=== PATIENT | male | born 1945 | race Caucasian/White ===

== ENCOUNTER 2016-05-16 16:41 | Emergency (ER) | payer MEDICARE ==
[2016-05-16 17:17] LABS: Hematocrit 51 % (42-52); Hemoglobin 16.7 g/dl (14.0-18.0); Mean Corpuscular HGB Conc 33 g/dl (31-36); Mean Corpuscular Hemoglobin 29 pg (27-31); Mean Corpuscular Volume 88 fL (80-94); Mean Platelet Volume 10 um3 (7.4-10.4); Red Blood Count 5.75 10^6/ul (4.0-5.4); Red Cell Distribution Width 14 % (10.5-15); White Blood Count 8.5 10^3/ul (3.5-10.8)
[2016-05-16 17:29] LABS: ALT 22 U/L (7-52); Albumin 4.1 g/dL (3.2-5.2); Alkaline Phosphatase 77 U/L (34-104); BUN/Creatinine Ratio 12.7 (8-20); Blood Urea Nitrogen 16 mg/dL (6-24); C Reactive Protein 2.53 mg/L (< 5.00); CO2 Carbon Dioxide 27 mmol/L (22-32); Calcium 10.8 mg/dL (8.6-10.3); Chloride 106 mmol/L (101-111); EGFR African American 72.3 (>60); EGFR Non-African American 56.3 (>60); Globulin 2.9 g/dL (2-4); Glucose 104 mg/dL (70-100); Sodium 129 mmol/L (133-145)
--- NOTE | 2016-05-16 17:39 | RAD ---
HISTORY: Trauma, head injury COMPARISONS: None TECHNIQUE: Multiple contiguous axial CT scans were obtained of the head without intravenous contrast. FINDINGS: HEMORRHAGE/INFARCT: There is no hemorrhage or acute infarct. MASSES/SHIFT: There is no mass or shift. EXTRA-AXIAL SPACES: There are no extra-axial fluid collections. SULCI AND VENTRICLES: The sulci and ventricles are normal in size and position for the patient's stated age. CEREBRUM: There are no focal parenchymal abnormalities. BRAINSTEM: There are no focal parenchymal abnormalities. CEREBELLUM: There are no focal parenchymal abnormalities. VESSELS: The vessels are grossly normal. PARANASAL SINUSES: The paranasal sinuses are clear. ORBITS: The orbits are unremarkable. BONES AND SOFT TISSUE: No bone or soft tissue abnormalities are noted. OTHER: None IMPRESSION: NO ACUTE INTRACRANIAL PATHOLOGY.
[2016-05-16] MEDS ORDERED: NS 0.9% 1000 ML* 1,000 ML IV ONE (17:40)
[2016-05-16 17:56] LABS: TSH (Thyroid Stimulating Horm) 2.11 mcIU/mL (0.34-5.60)
[2016-05-16] MEDS ORDERED: oxyCODONE TAB* 5 MG TAB PO ONE ×2 (19:32→22:05)
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
--- NOTE | 2016-05-16 22:14 | ED ---
Anselmo Richards Matthew, scribed for Foster Doss MD on 05/16/16 at 1702 . Neurological HPI - HPI Summary HPI Summary: A 70 y/o male presents to the ED with constant bilateral lower extremity weakness since 3 weeks ago that worsened today. Per the EMS, the patient was found face down on the floor, because he states his legs are too weak to ambulate. Also 2 weeks ago that patient had sharp right sided chest pain that radiated up his right shoulder and jaw. The pain lasted for 10 minutes and was described as sharp. He has also fallen 7 times in the last 3 weeks. Associated symptoms include right hip pain and SOB. The patient denies unsteady gait, chest pain, and headache. - History of Current Complaint Chief Complaint: EDSyncope Stated Complaint: GENERAL WEAKNESS Time Seen by Provider: 05/16/16 16:50 Hx Obtained From: Patient Onset/Duration: Gradual Onset, Started weeks ago, Still Present Timing: Constant Onset Severity: Moderate Current Severity: Moderate Neurological Deficit Location: RLE, LLE Pain Intensity: 0 Pain Scale Used: 0-10 Numeric Character: Motor Weakness Aggravating: Nothing Alleviating: Nothing Associated Signs and Symptoms: Positive: Weakness - Bilateral LE, Shortness of Breath. Negative: Unsteady Gait, Headache, Chest Pain - Additional Pertinent History Primary Care Physician: [id number] - Allergy/Home Medications Allergies/Adverse Reactions: Allergies Allergy/AdvReac Type Severity Reaction Status Date / Time No Known Allergies Allergy Verified 03/24/16 13:12 Home Medications: Home Medications ALPRAZolam TAB* [Xanax TAB*] 0.5 mg PO BID 05/16/16 [History Confirmed 05/16/16] Amitriptyline TAB* [Elavil TAB*] 25 mg PO DAILY 05/16/16 [History Confirmed 11/23] Citalopram TAB* [Celexa TAB*] 40 mg PO DAILY 05/16/16 [History Confirmed ] Enalapril TAB* [Vasotec TAB*] 20 mg PO DAILY 05/16/16 [History Confirmed ] Hydrochlorothiazide TAB* [Hydrodiuril TAB*] 50 mg PO DAILY 05/16/16 [History Confirmed 05/16/16] Levothyroxine TAB* [Synthroid TAB*] 88 mcg PO DAILY 05/16/16 [History Confirmed 05/16/16] Mirtazapine TAB* [Remeron TAB*] 30 mg PO BEDTIME 05/16/16 [History Confirmed 11/23] busPIRone TAB* [Buspar TAB*] 10 mg PO TID 05/16/16 [History Confirmed 05/16/16] PMH/Surg Hx/FS Hx/Imm Hx Cardiovascular History: Reports: Hx Hypertension Respiratory History: Reports: Other Respiratory Problems/Disorders - Emphysema GI History: Reports: Hx Gall Bladder Disease - Had cholysystectomy several years ago, Other GI Disorders - Pt. reports surgical removal of large portion of his intestines. Musculoskeletal History: Reports: Hx Orthopedic Injury Sensory History: Reports: Hx Contacts or Glasses Denies: Hx Cataracts Opthamlomology History: Reports: Hx Contacts or Glasses Denies: Hx Cataracts Neurological History: Reports: Other Neuro Impairments/Disorders - Pt. reports no sensation from Rt. knee to Rt. side of abdomen. Psychiatric History: Denies: Hx Eating Disorder, Hx of Violent Episodes Against Others - Surgical History Surgery Procedure, Year, and Place: cholysystectomy several years ago, Rt. hip surgery, Rt. abdominal surgery. Hx Anesthesia Reactions: No Infectious Disease History: No Infectious Disease History: Denies: Hx Clostridium Difficile, Hx Hepatitis, Hx Human Immunodeficiency Virus (HIV), Hx of Known/Suspected MRSA, Hx Shingles, Hx Tuberculosis, Hx Known/ Suspected VRE, Hx Known/Suspected VRSA, History Other Infectious Disease, Traveled Outside the [place] in Last 30 Days - Family History Known Family History: Negative: Cardiac Disease, Hypertension, Diabetes - Social History Alcohol Use: None Substance Use Type: Reports: Prescribed Substance Use Comment - Amount & Last Used: OXYCODONE Smoking Status (MU): Heavy Every Day Tobacco Smoker Type: Cigarettes Have You Smoked in the Last Year: Yes Review of Systems Constitutional: Negative Eyes: Negative ENT: Negative Cardiovascular: Negative Negative: Chest Pain Positive: Shortness Of Breath Gastrointestinal: Negative Genitourinary: Negative Positive: Myalgia - right hip pain Skin: Negative Positive: Weakness - Bilateral LE. Negative: Headache Psychological: Normal All Other Systems Reviewed And Are Negative: Yes Physical Exam Triage Information Reviewed: Yes Vital Signs On Initial Exam: Initial Vitals Temp Pulse Resp BP Pulse Ox 97.2 F 89 16 116/74 92 05/16/16 16:49 05/16/16 16:49 05/16/16 16:49 05/16/16 16:49 05/16/16 16:49 Vital Signs Reviewed: Yes Appearance: Positive: Well-Appearing, No Pain Distress Skin: Positive: Warm, Skin Color Reflects Adequate Perfusion, Dry Head/Face: Positive: Normal Head/Face Inspection Eyes: Positive: Normal ENT: Positive: Normal ENT inspection Neck: Positive: Supple, Nontender Respiratory/Lung Sounds: Positive: Clear to Auscultation, Breath Sounds Present Cardiovascular: Positive: RRR Abdomen Description: Positive: Nontender, Soft, Other: - Abdomen baddly scarred Bowel Sounds: Positive: Present Musculoskeletal: Positive: Other - Strong femoral pulses bilaterally; Unable to feel DP pulses bilaterally ; 5 secs cap refill; No clonus; Neurological: Positive: Alert, Oriented to Person Place, Time, Other - Strong distally in the LE bilaterally, weak to proximal musculature; Normal reflexes Psychiatric: Positive: Normal, Affect/Mood Appropriate Diagnostics - Vital Signs Vital Signs Temp Pulse Resp BP Pulse Ox 05/16/16 16:49 97.2 F 89 16 116/74 92 - Laboratory Lab Results: Lab Results 05/16/16 05/16/16 05/16/16 Range/Units 16:53 16:53 16:53 WBC 8.5 (3.5-10.8) 10^3/ul RBC 5.75 H (4.0-5.4) 10^6/ul Hgb 16.7 (14.0-18.0) g/dl Hct 51 (42-52) % MCV 88 (80-94) fL MCH 29 (27-31) pg MCHC 33 (31-36) g/dl RDW 14 (10.5-15) % Plt Count 150 (150-450) 10^3/ul MPV 10 (7.4-10.4) um3 Neut % (Auto) 68.4 (38-83) % Lymph % (Auto) 18.4 L (25-47) % Doddridge % (Auto) 8.1 (1-9) % Eos % (Auto) 4.4 (0-6) % Baso % (Auto) 0.7 (0-2) % Absolute Neuts (auto) 5.8 (1.5-7.7) 10^3/ul Absolute Lymphs (auto) 1.6 (1.0-4.8) 10^3/ul Absolute Monos (auto) 0.7 (0-0.8) 10^3/ul Absolute Eos (auto) 0.4 (0-0.6) 10^3/ul Absolute Basos (auto) 0.1 (0-0.2) 10^3/ul Absolute Nucleated RBC 0.04 10^3/ul Nucleated RBC % 0.4 INR (Anticoag Therapy) 1.04 (0.89-1.11) Sodium 129 L (133-145) mmol/L Potassium TNP Chloride 106 (101-111) mmol/L Carbon Dioxide 27 (22-32) mmol/L Anion Gap TNP BUN 16 (6-24) mg/dL Creatinine 1.26 H (0.67-1.17) mg/dL Est GFR ( Amer) 72.3 (>60) Est GFR (Non-Af Amer) 56.3 (>60) BUN/Creatinine Ratio 12.7 (8-20) Glucose 104 H (70-100) mg/dL Lactic Acid (0.5-2.0) mmol/L Calcium 10.8 H (8.6-10.3) mg/dL Magnesium TNP Total Bilirubin 0.40 (0.2-1.0) mg/dL AST TNP ALT 22 (7-52) U/L Alkaline Phosphatase 77 (34-104) U/L Troponin I 0.00 (<0.04) ng/mL C-Reactive Protein 2.53 (< 5.00) mg/L Total Protein 7.0 (6.4-8.9) g/dL Albumin 4.1 (3.2-5.2) g/dL Globulin 2.9 (2-4) g/dL Albumin/Globulin Ratio 1.4 (1-3) TSH 2.11 (0.34-5.60) mcIU/mL 05/16/16 05/16/16 Range/Units 16:53 17:42 WBC (3.5-10.8) 10^3/ul RBC (4.0-5.4) 10^6/ul Hgb (14.0-18.0) g/dl Hct (42-52) % MCV (80-94) fL MCH (27-31) pg MCHC (31-36) g/dl RDW (10.5-15) % Plt Count (150-450) 10^3/ul MPV (7.4-10.4) um3 Neut % (Auto) (38-83) % Lymph % (Auto) (25-47) % Doddridge % (Auto) (1-9) % Eos % (Auto) (0-6) % Baso % (Auto) (0-2) % Absolute Neuts (auto) (1.5-7.7) 10^3/ul Absolute Lymphs (auto) (1.0-4.8) 10^3/ul Absolute Monos (auto) (0-0.8) 10^3/ul Absolute Eos (auto) (0-0.6) 10^3/ul Absolute Basos (auto) (0-0.2) 10^3/ul Absolute Nucleated RBC 10^3/ul Nucleated RBC % INR (Anticoag Therapy) (0.89-1.11) Sodium (133-145) mmol/L Potassium 3.7 Chloride (101-111) mmol/L Carbon Dioxide (22-32) mmol/L Anion Gap BUN (6-24) mg/dL Creatinine (0.67-1.17) mg/dL Est GFR ( Amer) (>60) Est GFR (Non-Af Amer) (>60) BUN/Creatinine Ratio (8-20) Glucose (70-100) mg/dL Lactic Acid 3.2 H* (0.5-2.0) mmol/L Calcium (8.6-10.3) mg/dL Magnesium 2.0 Total Bilirubin (0.2-1.0) mg/dL AST 21 ALT (7-52) U/L Alkaline Phosphatase (34-104) U/L Troponin I (<0.04) ng/mL C-Reactive Protein (< 5.00) mg/L Total Protein (6.4-8.9) g/dL Albumin (3.2-5.2) g/dL Globulin (2-4) g/dL Albumin/Globulin Ratio (1-3) TSH (0.34-5.60) mcIU/mL Result Diagrams: 05/16/16 16:53 05/16/16 17:42 Lab Statement: Any lab studies that have been ordered have been reviewed, and results considered in the medical decision making process. - CT Brain CT CT Interpretation: No Acute Changes - IMPRESSION: NO ACUTE INTRACRANIAL PATHOLOGY. CT Interpretation Completed By: Radiologist Pelvis CT CT Interpretation: Positive (See Comments) - IMPRESSION: 1. NO ACUTE OSSEOUS INJURY. 2. REMOTE POSTTRAUMATIC DEFORMITY TO THE RIGHT ILIAC WING. 3. 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 4. ATHEROSCLEROSIS. 5. ENLARGED PROSTATE CT Interpretation Completed By: Radiologist - EKG 18:54 Cardiac Rate: NL - 89 bpm EKG Rhythm: Sinus Rhythm EKG Interpretation: Old Inferior Infarct EKG Comparison: No Significant Change - 01/08/15 Course/Dx - Course Course Of Treatment: Mr. Reynaga presented with a C/O weakness and legs giving out. He has fallen several times in the past couple of weeks. He seemed to have some proximal weakness in his lower extremities and was seen by Dr. Lomas of Neurology. His CT showed wome spondylolisthesis at L4- L5. He was D/ C's with some pain medication for F/U. - Diagnoses Provider Diagnoses: Weakness - Physician Notifications Discussed Care of Patient With: Dr. Lomas (Neruology) at 19:19 -- Notified of patient's history and will come to evaluate the patient. Discharge - Discharge Plan Condition: Stable Disposition: HOME Patient Education Materials: Weakness (ED) Referrals: [facility] [Outside] - 2 Days Additional Instructions: Please follow-up with your primary care physician in two days. The documentation as recorded by the Anselmo camarena Matthew accurately reflects the service I personally performed and the decisions made by me, Foster Doss MD.
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
[2016-05-16 22:42] VITALS: BP 101/67
== END 2016-05-16 22:42 | disposition home or self-care (01) ==
LOC: ED 16:41
DX: R53.1 Weakness (principal); F17.210 Nicotine dependence, cigarettes, uncomplicated; I10 Essential (primary) hypertension
CPT/HCPCS: 36415; 70450; 72192; 80053; 83605; 83735; 84443; 84484; 85025; 85610; 86140; 93005; 96360; 99283; A9270-GY

== ENCOUNTER 2016-05-17 00:10 | Inpatient (IN) | payer MEDICARE ==
--- NOTE | 2016-05-17 00:32 | ED ---
De Richards Billy, scribed for Jim Arevalo MD on 05/17/16 at 0028 . Complex/Multi-Sys Presentation - HPI Summary HPI Summary: Patient is a 70 year-old male BIBA to [facility] for generalized weakness and repeated falls tonight. He was only recently discharged from [facility] within the last 2 hours. He arrived home and fell from his chair, and proceeded to fall multiple times while attempting to get into his chair in the living room. Family decided to have EMS bring patient back to [facility] for further workup and management. He denies any CP or headache at this time. Prior visit's report reviewed, he has had bilateral lower extremity weakness for several weeks. - History Of Current Complaint Chief Complaint: EDGeneral Time Seen by Provider: 05/17/16 00:11 Hx Obtained From: Patient, Family/Repairer Veneer Sheet, EMS Onset/Duration: Gradual Onset, Lasting Weeks, Still Present Timing: Constant Severity Currently: Moderate Severity Initially: Moderate Aggravating Factor(s): none Alleviating Factor(s): none Associated Signs And Symptoms: Negative: Headache, Chest Pain - Allergies/Home Medications Allergies/Adverse Reactions: Allergies Allergy/AdvReac Type Severity Reaction Status Date / Time No Known Allergies Allergy Verified 03/24/16 13:12 Home Medications: Home Medications oxyCODONE TAB* [Roxycodone TAB 5 mg*] 5 mg PO Q6H PRN 05/17/16 [History Confirmed 05/17/16] PMH/Surg Hx/FS Hx/Imm Hx Cardiovascular History: Reports: Hx Hypertension Respiratory History: Reports: Other Respiratory Problems/Disorders - Emphysema GI History: Reports: Hx Gall Bladder Disease - Had cholysystectomy several years ago, Other GI Disorders - Pt. reports surgical removal of large portion of his intestines. Musculoskeletal History: Reports: Hx Orthopedic Injury Sensory History: Reports: Hx Contacts or Glasses Denies: Hx Cataracts Opthamlomology History: Reports: Hx Contacts or Glasses Denies: Hx Cataracts Neurological History: Reports: Other Neuro Impairments/Disorders - Pt. reports no sensation from Rt. knee to Rt. side of abdomen. Psychiatric History: Denies: Hx Eating Disorder, Hx of Violent Episodes Against Others - Surgical History Surgery Procedure, Year, and Place: cholysystectomy several years ago, Rt. hip surgery, Rt. abdominal surgery. Hx Anesthesia Reactions: No Infectious Disease History: No Infectious Disease History: Denies: Hx Clostridium Difficile, Hx Hepatitis, Hx Human Immunodeficiency Virus (HIV), Hx of Known/Suspected MRSA, Hx Shingles, Hx Tuberculosis, Hx Known/ Suspected VRE, Hx Known/Suspected VRSA, History Other Infectious Disease, Traveled Outside the in Last 30 Days - Family History Known Family History: Negative: Cardiac Disease, Hypertension, Diabetes - Social History Alcohol Use: None Substance Use Type: Reports: Prescribed Substance Use Comment - Amount & Last Used: OXYCODONE Smoking Status (MU): Heavy Every Day Tobacco Smoker Type: Cigarettes Have You Smoked in the Last Year: Yes Review of Systems Negative: Fever Negative: Chest Pain Positive: Weakness. Negative: Headache All Other Systems Reviewed And Are Negative: Yes Physical Exam Triage Information Reviewed: Yes Vital Signs On Initial Exam: Initial Vitals Temp Pulse Resp BP Pulse Ox 98.5 F 72 14 132/70 95 05/17/16 00:15 05/17/16 00:15 05/17/16 00:15 05/17/16 00:15 05/17/16 00:15 Vital Signs Reviewed: Yes Completion Of Physical Exam Limited Due To: Altered Mental Status Appearance: Positive: No Pain Distress, Well-Nourished Skin: Positive: Warm Eyes: Positive: CALI ENT: Positive: Hearing grossly normal Neck: Positive: Supple Respiratory/Lung Sounds: Positive: Breath Sounds Present Cardiovascular: Positive: Normal Abdomen Description: Positive: Nontender, Soft Bowel Sounds: Positive: Present Musculoskeletal: Positive: Strength/ROM Intact Neurological: Positive: Sensory/Motor Intact Psychiatric: Positive: Anxious Diagnostics - Vital Signs Vital Signs Temp Pulse Resp BP Pulse Ox 05/17/16 00:15 98.5 F 72 14 132/70 95 - Laboratory Lab Statement: Any lab studies that have been ordered have been reviewed, and results considered in the medical decision making process. Complex Multi-Symp Course/Dx - Diagnoses Provider Diagnoses: Weakness - Physician Notifications Discussed Care Of Patient With: Dr. Bach (hospitalist) @ 0030: accepts admission. Instructed by Provider To: Admit As Observation Discharge - Discharge Plan Condition: Stable Disposition: ADMITTED TO [facility] documentation as recorded by the De camarena Billy accurately reflects the service I personally performed and the decisions made by me, Jim Arevalo MD.
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
[2016-05-17] MEDS ORDERED: Melatonin (NF) 3 MG TAB PO PRN (01:30)
[2016-05-17] MEDS ORDERED: Ondansetron INJ* 2 MG/ML VIAL IV PRN (01:30)
[2016-05-17] MEDS ORDERED: NS 0.9% 1000 ML* 1,000 ML IV SCH (01:30)
[2016-05-17] MEDS ORDERED: Albuterol 2.5 MG/3 ML NEB.SOL* (0.083%) INH PRN (01:30)
[2016-05-17 05:45] LABS: Hematocrit 46 % (42-52); Hemoglobin 15.4 g/dl (14.0-18.0); Mean Corpuscular HGB Conc 33 g/dl (31-36); Mean Corpuscular Hemoglobin 29 pg (27-31); Mean Corpuscular Volume 88 fL (80-94); Mean Platelet Volume 10 um3 (7.4-10.4); Red Blood Count 5.22 10^6/ul (4.0-5.4); Red Cell Distribution Width 14 % (10.5-15); White Blood Count 7.2 10^3/ul (3.5-10.8)
[2016-05-17] MEDS: Levothyroxine TAB* 88 MCG TAB PO SCH (05:48)
[2016-05-17] MEDS: Omeprazole CAP* 20 MG PO SCH (05:48)
[2016-05-17 06:02] LABS: BUN/Creatinine Ratio 12.5 (8-20); Calcium 9.6 mg/dL (8.6-10.3); EGFR African American 76.5 (>60); EGFR Non-African American 59.5 (>60); Potassium 3.2 mmol/L (3.5-5.0)
[2016-05-17] MEDS: traMADol TAB* 50 MG PO PRN ×5 (07:07→23:19)
[2016-05-17] MEDS: Enalapril TAB* 20 MG PO SCH (08:16)
[2016-05-17] MEDS: Docusate CAP* 100 MG PO SCH ×2 (08:16→19:51)
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
[2016-05-17] MEDS: Acetaminophen TAB* 325 MG PO PRN ×2 (10:17→16:26)
[2016-05-17] MEDS: oxyCODONE TAB* 5 MG TAB PO PRN ×2 (10:18→14:16)
[2016-05-17] MEDS: NS 0.9% 1000 ML* 1,000 ML IV SCH ×2 (12:47→21:26)
[2016-05-17] MEDS: oxyCODONE TAB* 5 MG TAB PO SCH (19:51)
[2016-05-17] MEDS ORDERED: Mirtazapine TAB* 15 MG PO SCH (21:00)
[2016-05-18] MEDS: traMADol TAB* 50 MG PO PRN ×2 (03:32→07:28)
[2016-05-18 04:34] LABS: Urine Bilirubin Negative (Negative); Urine Glucose Negative (Negative); Urine Nitrite Negative (Negative)
[2016-05-18] MEDS: Heparin VIAL(*) 5000 UNITS/ML VIAL (FIVE THOUSAND) SUBCUT SCH ×2 (05:01→14:05)
[2016-05-18] MEDS: Levothyroxine TAB* 88 MCG TAB PO SCH (05:01)
[2016-05-18] MEDS: Omeprazole CAP* 20 MG PO SCH (05:01)
[2016-05-18 05:50] LABS: Hematocrit 43 % (42-52); Mean Corpuscular HGB Conc 33 g/dl (31-36); Mean Corpuscular Hemoglobin 29 pg (27-31); Mean Corpuscular Volume 89 fL (80-94); Mean Platelet Volume 9 um3 (7.4-10.4); Red Blood Count 4.83 10^6/ul (4.0-5.4); Red Cell Distribution Width 14 % (10.5-15); White Blood Count 4.9 10^3/ul (3.5-10.8)
[2016-05-18 06:09] LABS: BUN/Creatinine Ratio 13.6 (8-20); EGFR African American 91.3 (>60); Potassium 3.8 mmol/L (3.5-5.0)
[2016-05-18] MEDS: NS 0.9% 1000 ML* 1,000 ML IV SCH (07:42)
[2016-05-18] MEDS: Docusate CAP* 100 MG PO SCH (08:44)
[2016-05-18] MEDS: oxyCODONE TAB* 5 MG TAB PO SCH ×2 (08:44→14:06)
[2016-05-18] MEDS: Enalapril TAB* 20 MG PO SCH (08:44)
[2016-05-18] MEDS ORDERED: oxyCODONE TAB* 5 MG TAB PO ONE (11:13)
[2016-05-18] MEDS ORDERED: Lidocaine PATCH 5%* 1 PATCH TRANSDERM SCH (12:00)
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
[2016-05-18 16:09] VITALS: BP 160/92
[2016-05-18] MEDS ORDERED: Lidocaine Patch REMOVE* 1 NOTE MISC SCH (21:00)
--- NOTE | 2016-05-19 15:19 | DS ---
DISCHARGE SUMMARY: DATE OF ADMISSION: 05/17/16 DATE OF DISCHARGE: 05/18/16 PRIMARY CARE PROVIDER: ISAIAH Marks at [facility]. DISCHARGING PROVIDER: ISAIAH Rain SUPERVISING PHYSICIAN: Jyothi Condon DO * (dictated by ISAIAH Rain) PRIMARY DISCHARGE DIAGNOSES: 1. Toxic encephalopathy secondary to unintentional overdose of benzodiazepine and opiates. 2. Lower extremity weakness which improved after encephalopathy cleared. 3. Acute kidney injury - resolved. 4. Substance abuse. SECONDARY DISCHARGE DIAGNOSES: 1. Hypothyroidism - TSH 2.11. 2. Depression and anxiety. 3. Chronic right hip pain. DISCHARGE MEDICATIONS: 1. Amitriptyline 25 mg p.o. daily. 2. Citalopram 40 mg p.o. daily. 3. Enalapril 20 mg p.o. daily. 4. Hydrochlorothiazide 50 mg p.o. daily. 5. Levothyroxine 88 mcg p.o. daily. 6. Mirtazapine 30 mg p.o. at bedtime. 7. BuSpar 10 mg p.o. t.i.d. MEDICATION CHANGES: 1. Discontinue oxycodone. 2. Discontinue alprazolam. HOSPITAL IMAGIN. CT of the brain shows no acute process. 2. CT of the pelvis shows no acute bony process but evidence of old deformity of the right iliac wing as well as spondylosis with anterior spondylolisthesis at L5 and S1. HOSPITAL COURSE: This is a pleasant 70-year-old gentleman with history of hypertension, hypothyroidism, depression, and anxiety, and chronic right hip pain, who presented with altered mental status and complaints of weakness. The patient stated that over the last couple of weeks, he has had profound weakness primarily in his lower extremities that has resulted in numerous falls at home. The patient was also noted to be confused, was taking multiple inappropriate doses of his alprazolam and oxycodone. It seems that he had been become confused and was in continued pain and each time his level of alertness would increase, he would take an additional dose of oxycodone which led to his encephalopathic state at the time of admission. All sedating medications were initially held at the time of admission and his oxycodone was later reintroduced at his reported prescribed dose of 10 mg three times daily which he stated was not adequately controlling his pain at that time. 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 Due to the chronicity of his injury and obvious difficulty with pain control, requested a palliative care consult to aide in symptom management. Dr. Cindi Golden was incredibly helpful in interviewing the patient. He felt that his 10 mg of oxycodone 3 times daily was adequately controlling his pain despite stating something quite different in the morning. She called his primary care provider who was identified as ISAIAH Marks at [facility] to discuss his pain management regimen as she felt that he would benefit more from long acting opiates. Brandon Campbell stated that the patient has a history of substance abuse and had not been prescribing oxycodone to him. I- STOP was pulled which showed that he had received oxycodone prescription from Dr. Durga Slade at [facility]. Contacted Dr. Slade in regards to the patient. He stated that he had initiated primary care services with him 3 months prior and he had initiated the oxycodone and referred to orthopedics to see if there are any surgical interventions that he may benefit from, but he became concerned about his potential for abuse when he had avoided a couple of his appointments with orthopedics. He requested a urine toxicology screen at his last appointment which was negative for oxycodone metabolites, but positive for hydromorphone and hydrocodone metabolites. No other illicit substances were noted. The patient had not returned to the office and said toxicology screen had been completed and Dr. Slade did not have a chance to address directly with him. Confronted patient with the information as potential substance abuse, and patient stated that he did request a pain pill from one of his neighbors, but stated that he did not have any malicious intent and had not been diverting any of his medications. He stated that he was in a significant amount of pain and deeply wanted help with pain management. With this information, contacted Dr. Slade again to see if he would be willing to prescribe a long-acting opiate potentially considering methadone to reduce addiction potential. He stated in the time since our last conversation, he had another patient in his office who had volunteered that she was concerned about her neighbor who had been requesting pain medications from all of his neighbors and had been witnessed crushing and snorting these medications. It appears that addresses of the patient in the office and Mr. Reynaga confirms that they are neighbors and this patient also mentions the name [employer]. The patient was again confronted with this information that there was significant concern for substance abuse. The patient denied that he would participate in any crushing or snorting of medication, but does not deny that he had been requesting pain medications from his neighbors. Suggested that the patient will benefit from substance abuse counselling which he was wary to consider. I explained to him that he would not be discharged from the hospital with any additional opiates. Dr. Slade would prefer the primary care be continued by Brandon Campbell, it sounds like he has been following him for quite some time and is familiar with his history. The patient stated that he felt well enough to return home and would like to spend some time at home sorting out appropriate course of action. Gave him contact information for [facility] and strongly suggested that he consider substance abuse counselling. DISCHARGE AND DISPOSITION: The patient is being discharged home where he lives alone. No opiates were prescribed at the time of discharge and the patient was encouraged not to take any additional benzodiazepines or opiates. Strongly suggested that substance abuse counselling. The patient was given contact information for [facility]. Contacted the patient's primary care Brandon Campbell at the time of discharge and left a message to discuss his followup plan. Could consider trailing an alternate bridge painter helper, Dr. Cueto may be of some help in this situation. If patient is willing to engage in regular urine toxicology screen as he does seem to have some true pathology. Beyond this he would certainly benefit from substance abuse counselling which patient seemed to acknowledge by the time of discharge, but his mental status has cleared, he is alert and appropriately oriented. He has capacity to leave the hospital. CC: ISAIAH Marks, [facility]* [id number]/CPS #: [id number] OSWALD
== END 2016-05-18 16:15 | disposition home or self-care (01) | DRG 917 ==
LOC: ED 00:10 → MED 01:29 → OBSVTOIN 10:14
PROVIDERS: ADMIT Hospitalist; ATTEND Hospitalist
DX: T42.4X1A Poisoning by benzodiazepines, accidental (unintentional), initial encounter (principal); G92 Toxic encephalopathy; N17.9 Acute kidney failure, unspecified; T50.7X1A Poisoning by analeptics and opioid receptor antagonists, accidental (unintentional), initial encounter; F19.10 Other psychoactive substance abuse, uncomplicated; E03.9 Hypothyroidism, unspecified; F32.9 Major depressive disorder, single episode, unspecified; M25.551 Pain in right hip; F41.9 Anxiety disorder, unspecified; F17.210 Nicotine dependence, cigarettes, uncomplicated; R53.1 Weakness; Z79.891 Long term (current) use of opiate analgesic; Z79.899 Other long term (current) drug therapy
CPT/HCPCS: 36415; 70450; 72192; 80048; 80053; 81003; 83605; 83735; 84443; 84484; 85025; 85027; 85610; 86140; 93005; 94640; 94760; 96360; 99283; 99406; A9270-GY; J1644

== ENCOUNTER 2016-05-28 08:24 | Inpatient (IN) | payer MEDICARE ==
[2016-05-28] MEDS ORDERED: NS 0.9% 1000 ML* 3,000 ML IV ONE (09:15)
--- NOTE | 2016-05-28 09:59 | RAD ---
INDICATION: Cough. Wheezing COMPARISON: January 06, 2015 TECHNIQUE: PA and lateral dual-energy views were obtained. FINDINGS: Bones/Soft Tissues: There are no acute bony findings. Cardiomediastinal: The cardiomediastinal silhouette is normal. Lungs: There are no infiltrates. There is hyperinflation Pleura: There are no pleural effusions. Other: None IMPRESSION: HYPERINFLATION. NO ACTIVE DISEASE.
--- NOTE | 2016-05-28 10:01 | RAD ---
INDICATION: Dizziness. Fall. COMPARISON: May 16, 2016 TECHNIQUE: Noncontrast axial source images were acquired from the skull base to the vertex. FINDINGS: Ventricles/sulci: The ventricles and cisterns are normal in size and configuration for age. Brain parenchyma: There is mild periventricular and subcortical white matter change compatible with chronic ischemia. Intracranial hemorrhage:None. Extra-axial spaces: There are no abnormal extra axial fluid collections or evidence of extra-axial mass. Calvarium: There is no calvarial fracture or other calvarial abnormality. Scalp: There is no evidence of scalp or extracalvarial soft tissue abnormality. Paranasal sinuses/mastoid: The paranasal sinuses and mastoid air cells are clear. Other: None. IMPRESSION: NO ACUTE INTRACRANIAL FINDINGS
[2016-05-28 10:06] LABS: Hematocrit 55 % (42-52); Hemoglobin 18.1 g/dl (14.0-18.0); Mean Corpuscular HGB Conc 33 g/dl (31-36); Mean Corpuscular Hemoglobin 29 pg (27-31); Mean Corpuscular Volume 88 fL (80-94); Mean Platelet Volume 10 um3 (7.4-10.4); Red Blood Count 6.21 10^6/ul (4.0-5.4); Red Cell Distribution Width 14 % (10.5-15); White Blood Count 12.2 10^3/ul (3.5-10.8)
[2016-05-28 10:07] LABS: Add Diff/Slide Review? Slide Review Added; Comments Flag Yes
[2016-05-28 10:22] LABS: ALT 26 U/L (7-52); Albumin 4.7 g/dL (3.2-5.2); Alkaline Phosphatase 76 U/L (34-104); BUN/Creatinine Ratio 11.8 (8-20); Blood Urea Nitrogen 15 mg/dL (6-24); CO2 Carbon Dioxide 24 mmol/L (22-32); Calcium 11.2 mg/dL (8.6-10.3); Chloride 99 mmol/L (101-111); Creatine Kinase 127 U/L (10-223); EGFR African American 71.7 (>60); EGFR Non-African American 55.7 (>60); Globulin 3.7 g/dL (2-4); Glucose 120 mg/dL (70-100); Sodium 131 mmol/L (133-145); Total Protein 8.4 g/dL (6.4-8.9)
[2016-05-28 10:38] LABS: Magnesium 2.4 mg/dL (1.9-2.7)
[2016-05-28 10:39] LABS: Acetaminophen < 15 mcg/mL; Alcohol < 10 mg/dL (<10); Salicylate < 2.50 mg/dL (<30)
[2016-05-28 10:47] LABS: TSH (Thyroid Stimulating Horm) 2.22 mcIU/mL (0.34-5.60)
[2016-05-28 11:40] LABS: Urine Bacteria Absent (Absent); Urine Bilirubin Negative (Negative); Urine Glucose Negative (Negative); Urine Nitrite Negative (Negative)
[2016-05-28 11:49] LABS: Benzodiazepine Urine Screen None Detected (None Detect)
[2016-05-28] MEDS ORDERED: Mouth Piece, Nicotine* 1 EACH CARTRIDGE ONE (13:04)
[2016-05-28] MEDS ORDERED: Nicotine Inhaler* 10 MG AMP ONE (13:05)
[2016-05-28] MEDS ORDERED: Nicotine Inhaler* 10 MG AMP INH ONE (13:07)
[2016-05-28] MEDS ORDERED: oxyCODONE TAB* 5 MG TAB PO ONE (14:06)
--- NOTE | 2016-05-28 14:18 | ED ---
Anselmo Richards Matthew, scribed for Tyrone Castellnaos MD on 05/28/16 at 1026 . Complex/Multi-Sys Presentation - HPI Summary HPI Summary: A 70 y/o male presents to the ED c/o dizziness and general weakness since 3 days ago. Associated symptoms include ataxis - since 3 days ago, blurry vision, decreased appetite - since 4 days ago, tinnitus, and diaphoresis. The patient denies headache, slurred speech, blind spot in his vision, difficulty swallowing , weakness in the UE, vertigo, coughing, urinary retention, trauma, and urinary incontinence. The patient states that he snorted 6 300mg wellbutrin tablets 3 days ago. Last night, per the patient's daughter, his right eye was dilated and his left eye was bulging. The patient states that he's seeing objects. He's also having difficulty falling a sleep. The patient lost his 6 years ago, and has been living by himself. He states that he dislikes living alone and believes its making him depressed. However, he's not receiving counseling currently. The patient was admitted 2 weeks ago for stroke like symptoms. - History Of Current Complaint Chief Complaint: EDNeurologicalDeficit Time Seen by Provider: 05/28/16 08:52 Hx Obtained From: Patient Onset/Duration: Lasting Days, Still Present Timing: Constant Severity Currently: Moderate Severity Initially: Moderate Location: Negative Associated Signs And Symptoms: Positive: Dizziness, Weakness, Diaphoresis, Other - Blurry Vision, tinnitus, ataxia - Allergies/Home Medications Allergies/Adverse Reactions: Allergies Allergy/AdvReac Type Severity Reaction Status Date / Time No Known Allergies Allergy Verified 05/28/16 08:42 PMH/Surg Hx/FS Hx/Imm Hx Cardiovascular History: Reports: Hx Hypertension Respiratory History: Reports: Hx Chronic Obstructive Pulmonary Disease (COPD) - Emphysema, Other Respiratory Problems/Disorders - Emphysema GI History: Reports: Hx Gall Bladder Disease - Had cholysystectomy several years ago, Other GI Disorders - Pt reports surgical removal of large portion of his intestines Musculoskeletal History: Reports: Hx Orthopedic Injury Sensory History: Reports: Hx Contacts or Glasses Denies: Hx Cataracts Opthamlomology History: Reports: Hx Contacts or Glasses Denies: Hx Cataracts Neurological History: Reports: Other Neuro Impairments/Disorders - numbness from right knee up to hip Psychiatric History: Reports: Hx Anxiety, Hx Depression, Hx Substance Abuse - oxycodone addiction Denies: Hx Eating Disorder, Hx of Violent Episodes Against Others - Surgical History Surgery Procedure, Year, and Place: cholysystectomy several years ago, Rt. hip surgery, Rt. abdominal surgery. Hx Anesthesia Reactions: No Infectious Disease History: Denies: Hx Clostridium Difficile, Hx Hepatitis, Hx Human Immunodeficiency Virus (HIV), Hx of Known/Suspected MRSA, Hx Shingles, Hx Tuberculosis, Hx Known/ Suspected VRE, Hx Known/Suspected VRSA, History Other Infectious Disease, Traveled Outside the [place] in Last 30 Days - Family History Known Family History: Negative: Cardiac Disease, Hypertension, Diabetes - Social History Alcohol Use: None Substance Use Type: Reports: Prescribed Substance Use Comment - Amount & Last Used: OXYCODONE Smoking Status (MU): Heavy Every Day Tobacco Smoker Type: Cigarettes Have You Smoked in the Last Year: Yes Review of Systems Constitutional: Other - decreased appetite Positive: Skin Diaphoresis Positive: Blurred Vision ENT: Other - Tinnitus Cardiovascular: Negative Respiratory: Negative Negative: Shortness Of Breath, Cough Gastrointestinal: Negative Genitourinary: Negative Negative: incontinence Musculoskeletal: Other - Ataxia Skin: Negative Neurological: Negative Negative: Headache Psychological: Normal All Other Systems Reviewed And Are Negative: Yes Physical Exam - Summary Physical Exam Summary: The patient is well-nourished in no acute distress and in no acute pain. The skin is warm and dry and skin color reflects adequate perfusion. HEENT: The head is normocephalic and atraumatic. The right pupil is larger than the left, but both are reactive. The conjunctivae are clear and without drainage. Nares are patent and without drainage. Mouth reveals moist mucous membranes and the throat is without erythema and exudate. The external ears are intact. The ear canals are patent and without drainage. The tympanic membranes are intact. The left angle of the mandible has a small well circumscribed lymph node Neck is supple with full range of motion and non-tender. There are no carotid bruits. There is no neck vein distension. Respiratory: Chest is non-tender. Diffuse wheezing and rhonchi. Cardiovascular: Heart is regular rate and rhythm. There is no murmur or rub auscultated. There is no peripheral edema and pulses are symmetrical and equal. Abdomen: The abdomen is soft and non-tender. There are normal bowel sounds heard in all four quadrants and there is no organomegaly palpated. Musculoskeletal: There is no back pain noted. Extremities are non-tender with full range of motion. There is good capillary refill. There is no peripheral edema or calf tenderness elicited. Neurological: Patient is alert and oriented to person, place and time. The patient has symmetrical motor strength in all four extremities. Cranial nerves II-XII are grossly intact. Deep tendon reflexes are symmetrical and equal in all four extremities. Normal finger to nose. No pronator drift of the UE, No leg leg pronator drig. Unable to assess right leg pronator drift, because of previous injury. Psychiatric: The patient appears depressed. Triage Information Reviewed: Yes Vital Signs On Initial Exam: Initial Vitals Temp Pulse Resp BP Pulse Ox 97.1 F 91 20 146/105 95 05/28/16 08:38 05/28/16 08:38 05/28/16 08:38 05/28/16 08:38 05/28/16 08:38 Vital Signs Reviewed: Yes Diagnostics - Vital Signs Vital Signs Temp Pulse Resp BP Pulse Ox 05/28/16 08:38 97.1 F 91 20 146/105 95 - Laboratory Lab Results: Lab Results 05/28/16 05/28/16 05/28/16 Range/Units 09:50 09:50 09:50 WBC 12.2 H (3.5-10.8) 10^3/ul RBC 6.21 H (4.0-5.4) 10^6/ul Hgb 18.1 H (14.0-18.0) g/dl Hct 55 H (42-52) % MCV 88 (80-94) fL MCH 29 (27-31) pg MCHC 33 (31-36) g/dl RDW 14 (10.5-15) % Plt Count 211 (150-450) 10^3/ul MPV 10 (7.4-10.4) um3 Neut % (Auto) 74.4 (38-83) % Lymph % (Auto) 14.7 L (25-47) % Glynn % (Auto) 8.4 (1-9) % Eos % (Auto) 1.9 (0-6) % Baso % (Auto) 0.6 (0-2) % Absolute Neuts (auto) 9.1 H (1.5-7.7) 10^3/ul Absolute Lymphs (auto) 1.8 (1.0-4.8) 10^3/ul Absolute Monos (auto) 1.0 H (0-0.8) 10^3/ul Absolute Eos (auto) 0.2 (0-0.6) 10^3/ul Absolute Basos (auto) 0.1 (0-0.2) 10^3/ul Absolute Nucleated RBC 0.01 10^3/ul Nucleated RBC % 0.1 INR (Anticoag Therapy) (0.89-1.11) Sodium 131 L (133-145) mmol/L Potassium TNP Chloride 99 L (101-111) mmol/L Carbon Dioxide 24 (22-32) mmol/L Anion Gap TNP BUN 15 (6-24) mg/dL Creatinine 1.27 H (0.67-1.17) mg/dL Est GFR ( Amer) 71.7 (>60) Est GFR (Non-Af Amer) 55.7 (>60) BUN/Creatinine Ratio 11.8 (8-20) Glucose 120 H (70-100) mg/dL Lactic Acid 1.2 (0.5-2.0) mmol/L Calcium 11.2 H (8.6-10.3) mg/dL Magnesium 2.4 (1.9-2.7) mg/dL Total Bilirubin 0.70 (0.2-1.0) mg/dL AST TNP ALT 26 (7-52) U/L Alkaline Phosphatase 76 (34-104) U/L Total Creatine Kinase 127 (10-223) U/L Troponin I 0.00 (<0.04) ng/mL C-Reactive Protein 1.50 (< 5.00) mg/L B-Natriuretic Peptide ( - 100) pg/mL Total Protein 8.4 (6.4-8.9) g/dL Albumin 4.7 (3.2-5.2) g/dL Globulin 3.7 (2-4) g/dL Albumin/Globulin Ratio 1.3 (1-3) TSH 2.22 (0.34-5.60) mcIU/mL Urine Color Urine Appearance Urine pH (5-9) Ur Specific [place] (1.010-1.030) Urine Protein (Negative) Urine Ketones (Negative) Urine Blood (Negative) Urine Nitrate (Negative) Urine Bilirubin (Negative) Urine Urobilinogen (Negative) Ur Leukocyte Esterase (Negative) Urine WBC (Auto) (Absent) Urine RBC (Auto) (Absent) Amorphous Crystals (Absent) Urine Bacteria (Absent) Urine Glucose (Negative) Salicylates < 2.50 (<30) mg/dL Urine Opiates Screen (None Detect) Acetaminophen < 15 mcg/mL Ur Barbiturates Screen (None Detect) Ur Phencyclidine Scrn (None Detect) Ur Amphetamines Screen (None Detect) U Benzodiazepines Scrn (None Detect) Urine Cocaine Screen (None Detect) U Cannabinoids Screen (None Detect) Serum Alcohol < 10 (<10) mg/dL 05/28/16 05/28/16 05/28/16 Range/Units 09:50 09:50 11:05 WBC (3.5-10.8) 10^3/ul RBC (4.0-5.4) 10^6/ul Hgb (14.0-18.0) g/dl Hct (42-52) % MCV (80-94) fL MCH (27-31) pg MCHC (31-36) g/dl RDW (10.5-15) % Plt Count (150-450) 10^3/ul MPV (7.4-10.4) um3 Neut % (Auto) (38-83) % Lymph % (Auto) (25-47) % Glynn % (Auto) (1-9) % Eos % (Auto) (0-6) % Baso % (Auto) (0-2) % Absolute Neuts (auto) (1.5-7.7) 10^3/ul Absolute Lymphs (auto) (1.0-4.8) 10^3/ul Absolute Monos (auto) (0-0.8) 10^3/ul Absolute Eos (auto) (0-0.6) 10^3/ul Absolute Basos (auto) (0-0.2) 10^3/ul Absolute Nucleated RBC 10^3/ul Nucleated RBC % INR (Anticoag Therapy) 1.14 H (0.89-1.11) Sodium (133-145) mmol/L Potassium Chloride (101-111) mmol/L Carbon Dioxide (22-32) mmol/L Anion Gap BUN (6-24) mg/dL Creatinine (0.67-1.17) mg/dL Est GFR ( Amer) (>60) Est GFR (Non-Af Amer) (>60) BUN/Creatinine Ratio (8-20) Glucose (70-100) mg/dL Lactic Acid (0.5-2.0) mmol/L Calcium (8.6-10.3) mg/dL Magnesium (1.9-2.7) mg/dL Total Bilirubin (0.2-1.0) mg/dL AST ALT (7-52) U/L Alkaline Phosphatase (34-104) U/L Total Creatine Kinase (10-223) U/L Troponin I (<0.04) ng/mL C-Reactive Protein (< 5.00) mg/L B-Natriuretic Peptide 13 ( - 100) pg/mL Total Protein (6.4-8.9) g/dL Albumin (3.2-5.2) g/dL Globulin (2-4) g/dL Albumin/Globulin Ratio (1-3) TSH (0.34-5.60) mcIU/mL Urine Color Yellow Urine Appearance Cloudy Urine pH 7.0 (5-9) Ur Specific [place] 1.015 (1.010-1.030) Urine Protein Negative (Negative) Urine Ketones Negative (Negative) Urine Blood Negative (Negative) Urine Nitrate Negative (Negative) Urine Bilirubin Negative (Negative) Urine Urobilinogen Negative (Negative) Ur Leukocyte Esterase Trace H (Negative) Urine WBC (Auto) 1+(6-10/hpf) H (Absent) Urine RBC (Auto) Absent (Absent) Amorphous Crystals Present H (Absent) Urine Bacteria Absent (Absent) Urine Glucose Negative (Negative) Salicylates (<30) mg/dL Urine Opiates Screen (None Detect) Acetaminophen mcg/mL Ur Barbiturates Screen (None Detect) Ur Phencyclidine Scrn (None Detect) Ur Amphetamines Screen (None Detect) U Benzodiazepines Scrn (None Detect) Urine Cocaine Screen (None Detect) U Cannabinoids Screen (None Detect) Serum Alcohol (<10) mg/dL 05/28/16 05/28/16 Range/Units 11:05 11:05 WBC (3.5-10.8) 10^3/ul RBC (4.0-5.4) 10^6/ul Hgb (14.0-18.0) g/dl Hct (42-52) % MCV (80-94) fL MCH (27-31) pg MCHC (31-36) g/dl RDW (10.5-15) % Plt Count (150-450) 10^3/ul MPV (7.4-10.4) um3 Neut % (Auto) (38-83) % Lymph % (Auto) (25-47) % Glynn % (Auto) (1-9) % Eos % (Auto) (0-6) % Baso % (Auto) (0-2) % Absolute Neuts (auto) (1.5-7.7) 10^3/ul Absolute Lymphs (auto) (1.0-4.8) 10^3/ul Absolute Monos (auto) (0-0.8) 10^3/ul Absolute Eos (auto) (0-0.6) 10^3/ul Absolute Basos (auto) (0-0.2) 10^3/ul Absolute Nucleated RBC 10^3/ul Nucleated RBC % INR (Anticoag Therapy) (0.89-1.11) Sodium (133-145) mmol/L Potassium 3.8 Chloride (101-111) mmol/L Carbon Dioxide (22-32) mmol/L Anion Gap BUN (6-24) mg/dL Creatinine (0.67-1.17) mg/dL Est GFR ( Amer) (>60) Est GFR (Non-Af Amer) (>60) BUN/Creatinine Ratio (8-20) Glucose (70-100) mg/dL Lactic Acid (0.5-2.0) mmol/L Calcium (8.6-10.3) mg/dL Magnesium (1.9-2.7) mg/dL Total Bilirubin (0.2-1.0) mg/dL AST 16 ALT (7-52) U/L Alkaline Phosphatase (34-104) U/L Total Creatine Kinase (10-223) U/L Troponin I (<0.04) ng/mL C-Reactive Protein (< 5.00) mg/L B-Natriuretic Peptide ( - 100) pg/mL Total Protein (6.4-8.9) g/dL Albumin (3.2-5.2) g/dL Globulin (2-4) g/dL Albumin/Globulin Ratio (1-3) TSH (0.34-5.60) mcIU/mL Urine Color Urine Appearance Urine pH (5-9) Ur Specific [place] (1.010-1.030) Urine Protein (Negative) Urine Ketones (Negative) Urine Blood (Negative) Urine Nitrate (Negative) Urine Bilirubin (Negative) Urine Urobilinogen (Negative) Ur Leukocyte Esterase (Negative) Urine WBC (Auto) (Absent) Urine RBC (Auto) (Absent) Amorphous Crystals (Absent) Urine Bacteria (Absent) Urine Glucose (Negative) Salicylates (<30) mg/dL Urine Opiates Screen None detected (None Detect) Acetaminophen mcg/mL Ur Barbiturates Screen None detected (None Detect) Ur Phencyclidine Scrn None detected (None Detect) Ur Amphetamines Screen None detected (None Detect) U Benzodiazepines Scrn None detected (None Detect) Urine Cocaine Screen None detected (None Detect) U Cannabinoids Screen None detected (None Detect) Serum Alcohol (<10) mg/dL Result Diagrams: 05/28/16 09:50 05/28/16 11:05 Lab Statement: Any lab studies that have been ordered have been reviewed, and results considered in the medical decision making process. - Radiology CXR Xray Interpretation: No Acute Changes - IMPRESSION: HYPERINFLATION. NO ACTIVE DISEASE. Radiology Interpretation Completed By: Radiologist - CT Brain CT CT Interpretation: No Acute Changes - IMPRESSION: NO ACUTE INTRACRANIAL FINDINGS CT Interpretation Completed By: Radiologist - EKG 9:16 Cardiac Rate: NL - 80 bpm EKG Rhythm: Sinus Rhythm Ectopy: PACs EKG Interpretation: Old inferior WV; old anterior [place]; Poor R wave progression Complex Multi-Symp Course/Dx Assessment/Plan: A 70 y/o male presents to the ED c/o dizziness and general weakness. The patient states that he snorted 6 300mg wellbutrin tablets 3 days ago. The patient lost his 6 years ago, and has been living by himself. He states that he dislikes living alone and believes its making him depressed. However, he's not receiving counseling currently. Labs were reviewed. Ct Brain shows no acute intracranial findings. CXR shows no active disease. EKG shows NSR at 80 bpm w/ old inferior and anterior W[place], and poor r wave progression. The patient will be signed out to Dr. Rapp for a MHE. - Diagnoses Differential Diagnoses/HQI/PQRI: Metabolic Abnormality, Other - depression, well butrin overdose, dehydration, intracerebral bleed Provider Diagnoses: Dehydration, Overdose, Depression Discharge - Discharge Plan Condition: Stable Disposition: OTHER Discharge Disposition Comment: The patient is signed out to Dr. Rapp pending MHE. Referrals: Session LORNA-Ximena,Brandon [Primary Care Provider] - The documentation as recorded by the Anselmo camarena Matthew accurately reflects the service I personally performed and the decisions made by me, Tyrone Castellanos MD.
[2016-05-28] MEDS ORDERED: LORazepam TAB(*) 1 MG PO ONE (16:47)
[2016-05-28] MEDS ORDERED: LORazepam TAB(*) 1 MG ONE (16:50)
[2016-05-28] MEDS: Nicotine Inhaler* 10 MG AMP INH PRN (18:22)
[2016-05-28] MEDS: Mirtazapine TAB* 15 MG PO SCH (20:15)
[2016-05-28] MEDS ORDERED: Acetaminophen TAB* 325 MG PO PRN (21:27)
[2016-05-29] MEDS: Nicotine Inhaler* 10 MG AMP INH PRN ×6 (04:48→17:47)
[2016-05-29] MEDS: Levothyroxine TAB* 88 MCG TAB PO SCH (08:24)
[2016-05-29] MEDS: Amitriptyline TAB* 25 MG PO SCH (09:06)
[2016-05-29] MEDS: Enalapril TAB* 20 MG PO SCH (09:06)
[2016-05-29] MEDS: Hydrochlorothiazide TAB* 50 MG PO SCH (09:06)
[2016-05-29] MEDS ORDERED: Nicotine GUM* 2 MG PO PRN (14:17)
[2016-05-29] MEDS: Nicotine PATCH 21 MG/24 HR* PATCH TRANSDERM SCH (14:50)
[2016-05-29] MEDS: Acetaminophen TAB* 325 MG PO PRN (15:51)
--- NOTE | 2016-05-29 16:15 | HP ---
DATE OF ADMISSION: 05/28/2016. JUSTIFICATION FOR ADMISSION: The patient is in need of 24 hour supervision and care secondary to suicidal ideations and suicidal attempt within 72 hours of admission. CHIEF COMPLAINT: "I don't feel like I have any purposes. I don't do anything. I just sit around my apartment. What good is this life for me." HISTORY OF PRESENT ILLNESS: The patient is a 70-year-old, , white male with a history of opioid abuse, as well as multiple medical comorbidities who was brought to the emergency room by his daughter with several somatic complaints, including dizziness, general weakness, blurry vision, decreased appetite, tinnitus, and diaphoresis. He did indicate that within 72 hours of evaluation that he had snorted approximately six 300 mg tabs of Wellbutrin and admits now that this was a suicide attempt. His daughter is indicating that he has been seeing objects and having difficulty sleeping. He was admitted here medically approximately 11 days ago under the service of physician's resident assistant Anselmo Tanner with similar symptoms. At that time, it was apparently discovered that the patient had been abusing opioids. He had been getting controlled substances from [facility], as well as the [facility] office. During that hospitalization, both the prescribing providers were contacted. It also emerged that several of the patient's neighbors had complained to his doctor in [place] that he had been wandering around the neighborhood asking people for controlled medications and that he had been snorting these. The patient does admit to these behaviors at this time, stating that he would do anything for some relief from the depression that he has. He indicates that the anniversary of his 's by heart attack will be in last June. This occurred approximately six years ago. He does have anniversary types of reactions every year around this time of the season. The patient does have chronic pain conditions secondary to an accidental hip injury that occurred during his service in [place] and he does complain of pain issues in addition to the dysthymia, poor motivation, difficulty sleeping, and lack of appetite. He indicates that he has lost approximately 40 pounds in the last two months. The patient does indicate that he is still having hallucinatory experiences since the overdose on Wellbutrin and is agreeable to antipsychotic treatment at this time. PAST PSYCHIATRIC HISTORY: The patient was admitted in December of 2014 for approximately four days under the service of Dr. Jose Raul Abdul. At that time he had been abusing opioids and had tried to wean himself off and then had a suicidal overdose on Citalopram. Other than this, he has never had any outpatient or inpatient psychiatric services and he never did follow-up with [facility] after that discharge. PAST MEDICAL HISTORY: Significant for abdominal surgery for shrapnel in [place] , chronic right hip pain, presbycusis, hypertension, hypothyroidism, and emphysema. CURRENT MEDICATIONS: 1. Amitriptyline 25 mg daily. 2. Enalapril 20 mg daily. 3. Hydrochlorothiazide 50 mg daily. 4. Levothyroxine 88 mcg daily. 5. Mirtazapine 30 mg at nighttime. ALLERGIES: He has no known drug allergies. FAMILY PSYCHIATRIC HISTORY: Denied. He has no known family history of suicide. SUBSTANCE ABUSE HISTORY: The patient first started drinking alcohol at the age of 12 and abused this until approximately 40 years ago. Prior to getting clean and sober from alcohol, he did get a least one DWI and he does note that he used to struggle from delirium tremens when withdrawing from alcohol. His last drink 40 years ago occurred just prior to a rehabilitation stint at [facility] where he was started on Antabuse. He does admit to abusing cannabis as a younger person, but denies using it in several years. He has never used cocaine or methamphetamines. In 2002, he started developing chronic right hip pain issues and started taking OxyContin at that time. He began abusing it very significantly in 2013 which lead ultimately to his hospitalization here in December of 2014. The patient smokes approximately two- and-a-half packs of cigarettes per day. SOCIAL HISTORY: The patient was born in [place], raised in [place]. His father at that age of [id number] when the patient was only 9. He was primarily raised by his mother and a step-father. He dropped out of school in the 7th grade and ultimately joined the [employer] on his 15th birthday and completed three years of service, including one combat deployment tour to [place]. His first marriage lasted for three years and he was single for several years before getting remarried. His second marriage lasted 35 years. Apparently his had lung problems and received a lung transplant, and she did survive approximately 11 years thereafter, but she on her 62nd birthday which was in 2010. He has no children biologically, but he does have a step-daughter who is employed here at [employer] and who he is very close with and he considers her children his grandchildren. 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 Currently he lives alone in low income housing in [place] and his income comes from the Social Security system. REVIEW OF SYSTEMS: The patient is complaining of right hip pain. He denies headache or double vision, although he is having some type of bizarre auditory hallucinations. He also complains of a buzzing noise in his ears. He denies sore throat or cough. He denies chest pain or difficulty breathing. The patient is endorsing dizziness, but he denies abdominal pain, nausea, vomiting, diarrhea or constipation. He has had some difficulty ambulating and was recently prescribed a walker by the Inpatient Medical Service here at [facility]. He does endorse recent weight loss, but he denies fevers, rashes or enlarged lymph nodes. PHYSICAL EXAMINATION VITAL SIGNS: Blood pressure 132/75, heart rate 75, respiratory rate 16, oxygen saturations are 94 percent on room air, temperature 98.1 degrees Fahrenheit. HEENT: Head is normocephalic, atraumatic. NECK: Supple. CHEST: Clear to auscultation bilaterally. CARDIAC: Exam reveals normal heart sounds. ABDOMEN: Soft, obese, nontender. SKIN: Warm and dry. MUSCULOSKELETAL: Exam reveals a full range of motion in all four extremities with no sign of edema. NEUROLOGIC: He is grossly intact with no focal deficits. LABORATORY DATA: Complete blood count indicates elevated hemoglobin at 18.1, elevated hematocrit at 55, elevated neutrophils at 9.1, and elevated monocytes at 1.0. Complete metabolic panel was significant for low sodium at 131, low chloride at 99, elevated creatinine at 1.27, glucose elevated at 120, calcium elevated at 11.2. Urinalysis is within normal limits. Urine drug screen is negative for all substances tested, including alcohol and opioids. MENTAL STATUS EXAM: The patient is an aging, white male whose head is shaved bald. He has several tattoos on his neck and arms, as well pierced ears and lots of jewelry on his fingers. He is wearing a white T-shirt and sweatpants. He is calm and cooperative with good posture, makes eye contact and is easy to establish a rapport with. Speech has normal rate, tone and volume and he is very expressive. Mood is depressed with constricted affect. Thought process is linear and goal- directed. Thought content is significant for his concerns at being lonely and having nothing to do with his time. He is endorsing suicidal ideations, but denies homicidality. He is endorsing auditory hallucinations of a buzzing noise, as well as visual hallucinations of blurred images. Insight and judgment appear to be poor given his ongoing abuse of substances. Cognitively, he is awake and alert with what appears to be an average intellect. DIAGNOSES: AXIS I: Major depressive disorder, single episode, severe with psychotic features; opioid use disorder. AXIS II: Deferred. AXIS III: History of chronic right hip pain, abdominal surgery, hypertension, presbycusis, hypothyroidism, emphysema. AXIS IV: Severe, primary support stressors. AXIS V: At this time is 35. IMPRESSION: The patient is a 70-year-old, , white male with a history of opioid abuse who arrived after a suicide attempt in which he snorted six tablets of Wellbutrin. He has been experiencing psychotic phenomenon and it is not clear whether this is due to the injection of Wellbutrin versus his underlying depressive disorder. He has recently been hospitalized on the medical service due to dizziness and falls, which is most likely secondary to his abuse of multiple substances in the community. PLAN: The patient is admitted to the Adult Behavioral Health Unit where he is placed on q.30 minute checks for his own safety. We will renew all his outpatient medications, including Amitriptyline 25 mg daily, Enalapril 20 mg daily, Hydrochlorothiazide 50 mg daily, Levothyroxine 88 mcg daily, Mirtazapine 30 mg daily. For his two pack a day smoking habit, we will give him not only nicotine replacement therapy through the patch, but also the inhaler and gum. We will start a trial of Seroquel 100 mg nightly to augment his antidepressant treatment as well as treat his acute psychotic symptoms. For pain, we will try a nonsteroidal anti- inflammatory such as Mobic at least twice daily, and we can certainly consult the Medical Service if he continues to complain bitterly of pain. I am considering inpatient rehab for the patient's substance abuse issues, but not until his suicidality is resolved. In the meantime, I think we should contact his daughter for further collateral information and he should be actively participating in group therapeutic programming here in the milieu setting. [id number]/[facility] #: [id number] OSWALD
[2016-05-29] MEDS: Diclofenac Sodium EC TAB* 25 MG PO SCH (19:54)
[2016-05-29] MEDS: QUEtiapine TAB* 100 MG PO SCH (19:54)
[2016-05-29] MEDS: Mirtazapine TAB* 15 MG PO SCH (19:54)
[2016-05-29] MEDS: Nicotine Patch Removal NOTE PATCH OFF SCH (19:56)
[2016-05-30] MEDS: Nicotine Inhaler* 10 MG AMP INH PRN ×4 (05:40→16:40)
[2016-05-30] MEDS: Nicotine PATCH 21 MG/24 HR* PATCH TRANSDERM SCH ×2 (05:59→08:45)
[2016-05-30] MEDS: Hydrochlorothiazide TAB* 50 MG PO SCH (08:18)
[2016-05-30] MEDS: Amitriptyline TAB* 25 MG PO SCH (08:18)
[2016-05-30] MEDS: Diclofenac Sodium EC TAB* 25 MG PO SCH ×2 (08:19→19:24)
[2016-05-30] MEDS: Levothyroxine TAB* 88 MCG TAB PO SCH (08:19)
[2016-05-30] MEDS: Enalapril TAB* 20 MG PO SCH (08:20)
[2016-05-30] MEDS: Acetaminophen TAB* 325 MG PO PRN (11:36)
[2016-05-30] MEDS: QUEtiapine TAB* 100 MG PO SCH (19:24)
[2016-05-30] MEDS: Mirtazapine TAB* 15 MG PO SCH (19:24)
[2016-05-30] MEDS: Nicotine Patch Removal NOTE PATCH OFF SCH (19:25)
[2016-05-31] MEDS: Nicotine Inhaler* 10 MG AMP INH PRN ×5 (06:30→17:17)
[2016-05-31] MEDS: Nicotine PATCH 21 MG/24 HR* PATCH TRANSDERM SCH (09:02)
[2016-05-31] MEDS: Diclofenac Sodium EC TAB* 25 MG PO SCH ×2 (09:03→20:02)
[2016-05-31] MEDS: Enalapril TAB* 20 MG PO SCH (09:03)
[2016-05-31] MEDS: Amitriptyline TAB* 25 MG PO SCH (09:03)
[2016-05-31] MEDS: Levothyroxine TAB* 88 MCG TAB PO SCH (09:03)
[2016-05-31] MEDS: Hydrochlorothiazide TAB* 50 MG PO SCH (09:04)
[2016-05-31] MEDS: Acetaminophen TAB* 325 MG PO PRN (14:35)
--- NOTE | 2016-05-31 14:54 | PN ---
Subjective - Subjective Subjective: Jaguar c/o continued greenish discharge when he blows his nose and recurrent cold sweats. Recent X-Ray and CT were normal studies. He endorses improved sleep and tolerable hip pain. He avidly denies depressed mood or suicidal ideation and he contracts for safety. Per staff, he has been visible in the milieu and adherent to unit's routines. Objective - Appearance Appearance: Healthy Appearing Dysmorphic Features: No Hygiene: Normal Grooming: Well Kept - Behavior Psychomotor Activities: Normal Exhibits Abnormal Movement: No - Attitude and Relatedness Attitude and Relatedness: Cooperative Eye Contact: Fair - Speech Quality: Unpressured Latencies: Normal Quantity: Terse - Mood Patient's Decription of Mood: "Okay" - Affect Observed Affect: Constricted Affect Consistent with: Dysphoria - Thought Process Patient's Thought Process: Coherent, Impoverished Thought Content: No Passive Wish, No Suicidal Planning, No Homicidal Ideation, No Paranoid Ideation - Sensorium Experiencing Hallucinations: No, Sensorium is Clear - Level of Consciousness Level of Consciousness: Alert Orientation: Yes Intact - Impulse Control Impulse Control: Intact - Insight and Judgement Insight and Judgement: Fair - Group Participation Particating in Group Activities: Yes - Medication Management Medication Management Adherence: Yes Assessment - Assessment Merits Inpatient Hospitalization: For Ongoing Evaluation, Consolidate Improvements, For Discharge Planning Inpatient DSM-IV Dx: opioid use disorder, severe. Clinical Impression: Lower distress level, milder mood symptoms and absence of suicidal ideation or withdrawal symptoms. He is tolerating trial of Seroquel with subjective benefits for sleep. He needs continued admission for stabilization in this structured setting. Plan - Plan Treatment Plan: Name: JAGUAR DIAZ Birthdate: 1945 [id number] Medications: Current Medications Acetaminophen (Tylenol Tab*) 975 mg PO Q6H PRN PRN Reason: PAIN Last Admin: 05/31/16 14:35 Dose: 975 mg Amitriptyline HCl (Elavil Tab*) 25 mg PO DAILY [facility] Last Admin: 05/31/16 09:03 Dose: 25 mg Diclofenac Sodium (Voltaren Ec Tab*) 50 mg PO BID [facility] Last Admin: 05/31/16 09:03 Dose: 50 mg Enalapril Maleate (Vasotec Tab*) 20 mg PO DAILY [facility] Last Admin: 05/31/16 09:03 Dose: 20 mg Hydrochlorothiazide (Hydrodiuril Tab*) 50 mg PO DAILY [facility] Last Admin: 05/31/16 09:04 Dose: 50 mg Levothyroxine Sodium (Synthroid Tab*) 88 mcg PO DAILY [facility] Last Admin: 05/31/16 09:03 Dose: 88 mcg Mirtazapine (Remeron Tab*) 30 mg PO BEDTIME [facility] Last Admin: 05/30/16 19:24 Dose: 30 mg Nicotine (Nicotine Inhaler*) 10 mg INH Q2H PRN PRN Reason: CRAVING Last Admin: 05/31/16 14:36 Dose: 10 mg Nicotine (Nicotine Patch 21 Mg/24 Hr*) 1 patch TRANSDERM Q24HR [facility] Last Admin: 05/31/16 09:02 Dose: 1 patch Nicotine Polacrilex (Nicotine Gum*) 2 mg PO Q2H PRN PRN Reason: CRAVING Pharmacy Profile Note (Nicotine Patch Removal Note*) 1 note PATCH OFF 2100 [facility] Last Admin: 05/30/16 19:25 Dose: 1 note Quetiapine Fumarate (Seroquel Tab*) 100 mg PO BEDTIME [facility] Last Admin: 05/30/16 19:24 Dose: 100 mg - Discharge Plan Discharge Plan: Drug/Alcohol Rehab Outpatient Program: TBD
[2016-05-31] MEDS: QUEtiapine TAB* 100 MG PO SCH (20:02)
[2016-05-31] MEDS: Mirtazapine TAB* 15 MG PO SCH (20:02)
[2016-05-31] MEDS: Nicotine Patch Removal NOTE PATCH OFF SCH (20:03)
[2016-06-01] MEDS: Nicotine Inhaler* 10 MG AMP INH PRN ×4 (05:40→18:41)
[2016-06-01] MEDS: Acetaminophen TAB* 325 MG PO PRN (06:25)
[2016-06-01] MEDS: Levothyroxine TAB* 88 MCG TAB PO SCH (08:48)
[2016-06-01] MEDS: Nicotine PATCH 21 MG/24 HR* PATCH TRANSDERM SCH (08:48)
[2016-06-01] MEDS: Amitriptyline TAB* 25 MG PO SCH (08:49)
[2016-06-01] MEDS: Enalapril TAB* 20 MG PO SCH (08:49)
[2016-06-01] MEDS: Diclofenac Sodium EC TAB* 25 MG PO SCH ×2 (08:49→21:00)
[2016-06-01] MEDS: Hydrochlorothiazide TAB* 50 MG PO SCH (08:50)
--- NOTE | 2016-06-01 13:53 | PN ---
MHU: Group Therapy Note - Service Type Service Type: 12596 Group Psychotherapy - Cognitive Behavioral Group Therapy ( CBT):Patient was attentive and participatory in CBT programming this morning, and remained in good behavioral control. Patient expressed positive insights regarding relevant treatment interventions and goals.
[2016-06-01] MEDS ORDERED: Venlafaxine EXT RELEASE CAP* 75 MG PO ONE (14:22)
--- NOTE | 2016-06-01 14:30 | PN ---
Subjective - Subjective Service Type: 61921 Hosp care 25 min moderate complexity Subjective: The patient denies psychotic phenomena and states that he is sleeping better, although he believes the quetiapine may have given him bad dreams the first two nights. He continues to endorsed dysthymia and feelings that he would rather not be alive. He is attending groups and has been participating more today. The patient's pain is controlled with diclofenac and prn tylenol. He denies HI or violent feelings towards others. Objective - Appearance Appearance: Well Developed/Nourished Dysmorphic Features: No Hygiene: Normal Grooming: Well Kept - Behavior Psychomotor Activities: Normal Exhibits Abnormal Movement: No - Attitude and Relatedness Attitude and Relatedness: Cooperative Eye Contact: Good - Speech Quality: Unpressured Latencies: Normal Quantity: Appropriate - Mood Patient's Decription of Mood: "Sad" - Affect Observed Affect: Depressed Affect Consistent with: Dysphoria - Thought Process Patient's Thought Process: Coherent Thought Content: Yes Passive Wish, No Suicidal Planning, No Homicidal Ideation, No Paranoid Ideation - Sensorium Experiencing Hallucinations: No, Sensorium is Clear Type of Hallucinations: Visual: No, Auditory: No, Command: No - Level of Consciousness Level of Consciousness: Alert Orientation: Yes Intact, Yes Orientated to Time, Yes Orientated to Place, Yes Orientated to Person - Impulse Control Impulse Control: Tenuous - Insight and Judgement Insight and Judgement: Fair - Group Participation Particating in Group Activities: Yes - Medication Management Medication Management Adherence: Yes Assessment - Assessment Merits Inpatient Hospitalization: For Immediate Safety, For Stabilization Inpatient DSM-IV Dx: MDD, single episode, severe with psychotic features Clinical Impression: 70 y.o. white male with a history of opioid abuse arrived after snorting 6 tabs of crushed bupropion XL in a suicide attempt. Plan - Plan Treatment Plan: Name: KRISTINE DIAZ Birthdate: 1945 [id number] The patient is now on mirtazapine and quetiapine. He remains depressed. Will discontinue amitriptyline and replace this with a trial of venlafaxine XR 150mg PO qam. Continued Medication Management: Different Medication Medications: Current Medications Acetaminophen (Tylenol Tab*) 975 mg PO Q6H PRN PRN Reason: PAIN Last Admin: 06/01/16 06:25 Dose: 975 mg Diclofenac Sodium (Voltaren Ec Tab*) 50 mg PO BID [facility] Last Admin: 06/01/16 08:49 Dose: 50 mg Enalapril Maleate (Vasotec Tab*) 20 mg PO DAILY [facility] Last Admin: 06/01/16 08:49 Dose: 20 mg Hydrochlorothiazide (Hydrodiuril Tab*) 50 mg PO DAILY [facility] Last Admin: 06/01/16 08:50 Dose: 50 mg Levothyroxine Sodium (Synthroid Tab*) 88 mcg PO DAILY [facility] Last Admin: 06/01/16 08:48 Dose: 88 mcg Mirtazapine (Remeron Tab*) 30 mg PO BEDTIME [facility] Last Admin: 05/31/16 20:02 Dose: 30 mg Nicotine (Nicotine Inhaler*) 10 mg INH Q2H PRN PRN Reason: CRAVING Last Admin: 06/01/16 09:34 Dose: 10 mg Nicotine (Nicotine Patch 21 Mg/24 Hr*) 1 patch TRANSDERM Q24HR [facility] Last Admin: 06/01/16 08:48 Dose: 1 patch Nicotine Polacrilex (Nicotine Gum*) 2 mg PO Q2H PRN PRN Reason: CRAVING Pharmacy Profile Note (Nicotine Patch Removal Note*) 1 note PATCH OFF 2100 [facility] Last Admin: 05/31/16 20:03 Dose: 1 note Quetiapine Fumarate (Seroquel Tab*) 100 mg PO BEDTIME [facility] Last Admin: 05/31/16 20:02 Dose: 100 mg Venlafaxine HCl (Effexor Xr Cap*) 75 mg PO ONCE ONE Stop: 06/01/16 14:23 Venlafaxine HCl (Effexor Xr Cap*) 150 mg PO DAILY [facility] - Discharge Plan Discharge Plan: Inpatient Hospitalization
[2016-06-01] MEDS: QUEtiapine TAB* 100 MG PO SCH (20:22)
[2016-06-01] MEDS: Nicotine Patch Removal NOTE PATCH OFF SCH (20:23)
[2016-06-01] MEDS: Mirtazapine TAB* 15 MG PO SCH (21:00)
[2016-06-02] MEDS: Nicotine Inhaler* 10 MG AMP INH PRN ×5 (05:28→19:11)
[2016-06-02] MEDS: Acetaminophen TAB* 325 MG PO PRN ×2 (05:32→16:19)
[2016-06-02] MEDS: Diclofenac Sodium EC TAB* 25 MG PO SCH ×2 (08:33→20:29)
[2016-06-02] MEDS: Nicotine PATCH 21 MG/24 HR* PATCH TRANSDERM SCH (08:33)
[2016-06-02] MEDS: Enalapril TAB* 20 MG PO SCH (08:34)
[2016-06-02] MEDS: Hydrochlorothiazide TAB* 50 MG PO SCH (08:34)
[2016-06-02] MEDS: Venlafaxine EXT RELEASE CAP* 75 MG PO SCH (08:34)
[2016-06-02] MEDS: Levothyroxine TAB* 88 MCG TAB PO SCH (08:34)
--- NOTE | 2016-06-02 12:25 | PN ---
Subjective - Subjective Service Type: 89277 Hosp care 25 min moderate complexity Subjective: Jaguar is seen together with CECILIO Almodovar in the dining area for routine follow up. He indicates that he is tolerating his new antidepressant well so far but continues to admit to depression and pessimism about the future. He denies active SI but feels he could quickly relapse if discharged. We discuss housing placement and increasing his social activities and he is open to evaluating his options when his daughter visits for a family meeting on (06/04). On the subject of his ongoing substance abuse problems he is confronted with his behaviors over the past 2 years, including his hospitalization at this facility in December of 2014, and is recommended to consider inpatient rehab. He offers reservations about this, fearing that he could not tolerate further confinement in a locked setting, however, these fears are allayed by this observer, as rehab setting tend to be far less restrictive than inpatient psychiatric settings. He agrees to consider this option. Objective - Appearance Appearance: Obese Dysmorphic Features: No Hygiene: Normal Grooming: Well Kept - Behavior Psychomotor Activities: Normal Exhibits Abnormal Movement: No - Attitude and Relatedness Attitude and Relatedness: Cooperative Eye Contact: Good - Speech Quality: Unpressured Latencies: Normal Quantity: Appropriate - Mood Patient's Decription of Mood: "Sad" - Affect Observed Affect: Depressed Affect Consistent with: Dysphoria - Thought Process Patient's Thought Process: Coherent Thought Content: Yes Passive Wish, No Suicidal Planning, No Homicidal Ideation, No Paranoid Ideation - Sensorium Experiencing Hallucinations: No, Sensorium is Clear Type of Hallucinations: Visual: No, Auditory: No, Command: No - Level of Consciousness Level of Consciousness: Alert Orientation: Yes Intact, Yes Orientated to Time, Yes Orientated to Place, Yes Orientated to Person - Impulse Control Impulse Control: Tenuous - Insight and Judgement Insight and Judgement: Fair - Group Participation Particating in Group Activities: Yes - Medication Management Medication Management Adherence: Yes Assessment - Assessment Merits Inpatient Hospitalization: For Immediate Safety, For Stabilization Inpatient DSM-IV Dx: MDD, single episode, severe with psychotic features Clinical Impression: 70 y.o. white male with a history of opioid abuse arrived after snorting 6 tabs of crushed bupropion XL in a suicide attempt. Plan - Plan Treatment Plan: Name: JAGUAR L JOE Birthdate: 1945 [id number] The patient is now on venlafaxine, which is new, mirtazapine and quetiapine. He remains depressed, largely for psychosocial reasons. We have scheduled a family meeting with his daughter, Caitlin, on (06/04) to discuss placement options. We're also encouraging inpatient rehab referral, which he agrees to consider. Continued Medication Management: Different Medication Medications: Current Medications Acetaminophen (Tylenol Tab*) 975 mg PO Q6H PRN PRN Reason: PAIN Last Admin: 06/02/16 05:32 Dose: 975 mg Diclofenac Sodium (Voltaren Ec Tab*) 50 mg PO BID [facility] Last Admin: 06/02/16 08:33 Dose: 50 mg Enalapril Maleate (Vasotec Tab*) 20 mg PO DAILY [facility] Last Admin: 06/02/16 08:34 Dose: 20 mg Hydrochlorothiazide (Hydrodiuril Tab*) 50 mg PO DAILY [facility] Last Admin: 06/02/16 08:34 Dose: 50 mg Levothyroxine Sodium (Synthroid Tab*) 88 mcg PO DAILY [facility] Last Admin: 06/02/16 08:34 Dose: 88 mcg Mirtazapine (Remeron Tab*) 30 mg PO BEDTIME [facility] Last Admin: 06/01/16 21:00 Dose: 30 mg Nicotine (Nicotine Inhaler*) 10 mg INH Q2H PRN PRN Reason: CRAVING Last Admin: 06/02/16 08:36 Dose: 10 mg Nicotine (Nicotine Patch 21 Mg/24 Hr*) 1 patch TRANSDERM Q24HR [facility] Last Admin: 06/02/16 08:33 Dose: 1 patch Nicotine Polacrilex (Nicotine Gum*) 2 mg PO Q2H PRN PRN Reason: CRAVING Pharmacy Profile Note (Nicotine Patch Removal Note*) 1 note PATCH OFF 2100 [facility] Last Admin: 06/01/16 20:23 Dose: 1 note Quetiapine Fumarate (Seroquel Tab*) 100 mg PO BEDTIME [facility] Last Admin: 06/01/16 20:22 Dose: 100 mg Venlafaxine HCl (Effexor Xr Cap*) 150 mg PO DAILY [facility] Last Admin: 06/02/16 08:34 Dose: 150 mg - Discharge Plan Discharge Plan: Inpatient Hospitalization
[2016-06-02] MEDS: Nicotine Patch Removal NOTE PATCH OFF SCH (20:28)
[2016-06-02] MEDS: Mirtazapine TAB* 15 MG PO SCH (20:30)
[2016-06-02] MEDS: QUEtiapine TAB* 100 MG PO SCH (20:31)
[2016-06-03] MEDS: Nicotine Inhaler* 10 MG AMP INH PRN ×2 (06:28→16:10)
[2016-06-03] MEDS: Diclofenac Sodium EC TAB* 25 MG PO SCH ×2 (08:28→20:09)
[2016-06-03] MEDS: Levothyroxine TAB* 88 MCG TAB PO SCH (08:29)
[2016-06-03] MEDS: Venlafaxine EXT RELEASE CAP* 75 MG PO SCH (08:29)
[2016-06-03] MEDS: Enalapril TAB* 20 MG PO SCH (08:29)
[2016-06-03] MEDS: Nicotine PATCH 21 MG/24 HR* PATCH TRANSDERM SCH (08:30)
[2016-06-03] MEDS: Hydrochlorothiazide TAB* 50 MG PO SCH (09:52)
[2016-06-03] MEDS: Acetaminophen TAB* 325 MG PO PRN (11:12)
--- NOTE | 2016-06-03 11:29 | PN ---
MHU: Group Therapy Note - Service Type Service Type: 80162 Group Psychotherapy - Cognitive Behavioral Group Therapy ( CBT):Patient was attentive and participatory in CBT programming this morning, and remained in good behavioral control. Patient expressed positive insights regarding relevant treatment interventions and goals.
--- NOTE | 2016-06-03 16:31 | PN ---
Subjective - Subjective Service Type: [id number] Hosp care 15 min low complexity Subjective: The patient informs me that he would prefer not to pursue inpatient substance abuse treatment at this time, feeling that his peers would likely all be young people whom he would struggle to relate to. He continues to tolerate his antidepressant therapy well and denies SI today. He is quite active in groups and appears to be social and engaged in the milieu process. Objective - Appearance Appearance: Obese Dysmorphic Features: No Hygiene: Normal Grooming: Well Kept - Behavior Psychomotor Activities: Normal Exhibits Abnormal Movement: No - Attitude and Relatedness Attitude and Relatedness: Cooperative Eye Contact: Good - Speech Quality: Unpressured Latencies: Normal Quantity: Appropriate - Mood Patient's Decription of Mood: "Sad" - Affect Observed Affect: Depressed Affect Consistent with: Dysphoria - Thought Process Patient's Thought Process: Coherent Thought Content: No Passive Wish, No Suicidal Planning, No Homicidal Ideation, No Paranoid Ideation - Sensorium Experiencing Hallucinations: No, Sensorium is Clear Type of Hallucinations: Visual: No, Auditory: No, Command: No - Level of Consciousness Level of Consciousness: Alert Orientation: Yes Intact, Yes Orientated to Time, Yes Orientated to Place, Yes Orientated to Person - Impulse Control Impulse Control: Tenuous - Insight and Judgement Insight and Judgement: Fair - Group Participation Particating in Group Activities: Yes - Medication Management Medication Management Adherence: Yes Assessment - Assessment Merits Inpatient Hospitalization: For Stabilization, Consolidate Improvements, For Discharge Planning Inpatient DSM-IV Dx: MDD, single episode, severe with psychotic features Clinical Impression: 70 y.o. white male with a history of opioid abuse arrived after snorting 6 tabs of crushed bupropion XL in a suicide attempt. Plan - Plan Treatment Plan: Name: KRISTINE DIAZ Birthdate: 1945 [id number] The patient is now on venlafaxine, which is new, mirtazapine and quetiapine. He remains depressed, largely for psychosocial reasons. We have scheduled a family meeting with his daughter, Caitiln, on (06/04) to discuss placement options. He needs rehab, either inpatient or outpatient. Continued Medication Management: Different Medication Medications: Current Medications Acetaminophen (Tylenol Tab*) 975 mg PO Q6H PRN PRN Reason: PAIN Last Admin: 06/03/16 11:12 Dose: 975 mg Diclofenac Sodium (Voltaren Ec Tab*) 50 mg PO BID [facility] Last Admin: 06/03/16 08:28 Dose: 50 mg Enalapril Maleate (Vasotec Tab*) 20 mg PO DAILY [facility] Last Admin: 06/03/16 08:29 Dose: 20 mg Hydrochlorothiazide (Hydrodiuril Tab*) 50 mg PO DAILY [facility] Last Admin: 06/03/16 09:52 Dose: 50 mg Levothyroxine Sodium (Synthroid Tab*) 88 mcg PO DAILY [facility] Last Admin: 06/03/16 08:29 Dose: 88 mcg Mirtazapine (Remeron Tab*) 30 mg PO BEDTIME [facility] Last Admin: 06/02/16 20:30 Dose: 30 mg Nicotine (Nicotine Inhaler*) 10 mg INH Q2H PRN PRN Reason: CRAVING Last Admin: 06/03/16 16:10 Dose: 10 mg Nicotine (Nicotine Patch 21 Mg/24 Hr*) 1 patch TRANSDERM Q24HR [facility] Last Admin: 06/03/16 08:30 Dose: 1 patch Nicotine Polacrilex (Nicotine Gum*) 2 mg PO Q2H PRN PRN Reason: CRAVING Pharmacy Profile Note (Nicotine Patch Removal Note*) 1 note PATCH OFF 2100 [facility] Last Admin: 06/02/16 20:28 Dose: 1 note Quetiapine Fumarate (Seroquel Tab*) 100 mg PO BEDTIME [facility] Last Admin: 06/02/16 20:31 Dose: 100 mg Venlafaxine HCl (Effexor Xr Cap*) 150 mg PO DAILY [facility] Last Admin: 06/03/16 08:29 Dose: 150 mg - Discharge Plan Discharge Plan: Inpatient Hospitalization
[2016-06-03] MEDS: QUEtiapine TAB* 100 MG PO SCH (20:08)
[2016-06-03] MEDS: Mirtazapine TAB* 15 MG PO SCH (20:08)
[2016-06-03] MEDS: Nicotine Patch Removal NOTE PATCH OFF SCH (20:08)
[2016-06-04] MEDS: Nicotine PATCH 21 MG/24 HR* PATCH TRANSDERM SCH (08:28)
[2016-06-04] MEDS: Venlafaxine EXT RELEASE CAP* 75 MG PO SCH (08:29)
[2016-06-04] MEDS: Diclofenac Sodium EC TAB* 25 MG PO SCH ×2 (08:29→20:32)
[2016-06-04] MEDS: Enalapril TAB* 20 MG PO SCH (08:29)
[2016-06-04] MEDS: Hydrochlorothiazide TAB* 50 MG PO SCH (08:29)
[2016-06-04] MEDS: Levothyroxine TAB* 88 MCG TAB PO SCH (08:30)
[2016-06-04] MEDS: Nicotine Inhaler* 10 MG AMP INH PRN ×2 (08:32→19:13)
--- NOTE | 2016-06-04 12:56 | PN ---
Subjective - Subjective Service Type: 30003 [facility] Subjective: The patient is seen along with SW, Elizabeth Almodovar, and his daughter, Caitlin, for family meeting and d/c planning. He reports feeling sad today and wonders how things are going to be when he returns to his low-rent apartment in [place]. "I feel like holing myself up there and not coming out." He is open to opportunities for socialization in the community, including AA/NA meetings and both he and his daughter are accepting of help in referring him to a half-way arrangement somewhere in the community. He denies SI today and is tolerating his medications well. Objective - Appearance Appearance: Well Developed/Nourished Dysmorphic Features: No Hygiene: Normal Grooming: Well Kept - Behavior Psychomotor Activities: Normal Exhibits Abnormal Movement: No - Attitude and Relatedness Attitude and Relatedness: Cooperative Eye Contact: Good - Speech Quality: Unpressured Latencies: Normal Quantity: Appropriate - Mood Patient's Decription of Mood: "Sad" - Affect Observed Affect: Constricted Affect Consistent with: Dysphoria - Thought Process Patient's Thought Process: Coherent Thought Content: No Passive Wish, No Suicidal Planning, No Homicidal Ideation, No Paranoid Ideation - Sensorium Experiencing Hallucinations: No, Sensorium is Clear Type of Hallucinations: Visual: No, Auditory: No, Command: No - Level of Consciousness Level of Consciousness: Alert Orientation: Yes Intact, Yes Orientated to Time, Yes Orientated to Place, Yes Orientated to Person - Impulse Control Impulse Control: Tenuous - Insight and Judgement Insight and Judgement: Fair - Group Participation Particating in Group Activities: Yes - Medication Management Medication Management Adherence: Yes Assessment - Assessment Merits Inpatient Hospitalization: Consolidate Improvements, Pending Safe DC Plan Inpatient DSM-IV Dx: MDD, single episode, severe with psychotic features Clinical Impression: 70 y.o. white male with a history of opioid abuse arrived after snorting 6 tabs of crushed bupropion XL in a suicide attempt. Plan - Plan Treatment Plan: Name: KRISTINE DIAZ Birthdate: 1945 [id number] The patient is now on venlafaxine, which is new, mirtazapine and quetiapine. He remains depressed, largely for psychosocial reasons. He needs rehab, either inpatient or outpatient, and community placement. Continued Medication Management: Different Medication Medications: Current Medications Acetaminophen (Tylenol Tab*) 975 mg PO Q6H PRN PRN Reason: PAIN Last Admin: 06/03/16 11:12 Dose: 975 mg Diclofenac Sodium (Voltaren Ec Tab*) 50 mg PO BID [facility] Last Admin: 06/04/16 08:29 Dose: 50 mg Enalapril Maleate (Vasotec Tab*) 20 mg PO DAILY [facility] Last Admin: 06/04/16 08:29 Dose: 20 mg Hydrochlorothiazide (Hydrodiuril Tab*) 50 mg PO DAILY [facility] Last Admin: 06/04/16 08:29 Dose: 50 mg Levothyroxine Sodium (Synthroid Tab*) 88 mcg PO DAILY [facility] Last Admin: 06/04/16 08:30 Dose: 88 mcg Mirtazapine (Remeron Tab*) 30 mg PO BEDTIME [facility] Last Admin: 06/03/16 20:08 Dose: 30 mg Nicotine (Nicotine Inhaler*) 10 mg INH Q2H PRN PRN Reason: CRAVING Last Admin: 06/04/16 08:32 Dose: 10 mg Nicotine (Nicotine Patch 21 Mg/24 Hr*) 1 patch TRANSDERM Q24HR [facility] Last Admin: 06/04/16 08:28 Dose: 1 patch Nicotine Polacrilex (Nicotine Gum*) 2 mg PO Q2H PRN PRN Reason: CRAVING Pharmacy Profile Note (Nicotine Patch Removal Note*) 1 note PATCH OFF 2100 [facility] Last Admin: 06/03/16 20:08 Dose: 1 note Quetiapine Fumarate (Seroquel Tab*) 100 mg PO BEDTIME [facility] Last Admin: 06/03/16 20:08 Dose: 100 mg Venlafaxine HCl (Effexor Xr Cap*) 150 mg PO DAILY [facility] Last Admin: 06/04/16 08:29 Dose: 150 mg - Discharge Plan Discharge Plan: Inpatient Hospitalization
[2016-06-04] MEDS: QUEtiapine TAB* 100 MG PO SCH (20:32)
[2016-06-04] MEDS: Mirtazapine TAB* 15 MG PO SCH (20:32)
[2016-06-04] MEDS: Nicotine Patch Removal NOTE PATCH OFF SCH (20:32)
[2016-06-05] MEDS: Enalapril TAB* 20 MG PO SCH (08:26)
[2016-06-05] MEDS: Diclofenac Sodium EC TAB* 25 MG PO SCH ×2 (08:26→20:33)
[2016-06-05] MEDS: Venlafaxine EXT RELEASE CAP* 75 MG PO SCH (08:26)
[2016-06-05] MEDS: Hydrochlorothiazide TAB* 50 MG PO SCH (08:27)
[2016-06-05] MEDS: Levothyroxine TAB* 88 MCG TAB PO SCH (08:27)
[2016-06-05] MEDS: Nicotine PATCH 21 MG/24 HR* PATCH TRANSDERM SCH (08:28)
[2016-06-05] MEDS: Nicotine Inhaler* 10 MG AMP INH PRN ×3 (08:30→18:38)
--- NOTE | 2016-06-05 13:59 | PN ---
MHU: Group Therapy Note - Service Type Service Type: [id number] Group Psychotherapy - Jaguar discussed recent and remote stress, describing some of his experiences while in the [employer] in [facility], as well as his travels after being discharged. He remains interested and invested in group discussions, presenting with earnest and thoughtful comments.
--- NOTE | 2016-06-05 14:18 | PN ---
Subjective - Subjective Service Type: 34979 Hosp care 15 min low complexity Subjective: The patient is tolerating his meds well and remains highly participatory in groups and highly motivated for change. He denies SI today but does express his fear that he is not ready for discharge as he is not ready to be alone in his apartment at this time. Objective - Appearance Appearance: Well Developed/Nourished Dysmorphic Features: No Hygiene: Normal Grooming: Well Kept - Behavior Psychomotor Activities: Normal Exhibits Abnormal Movement: No - Attitude and Relatedness Attitude and Relatedness: Cooperative Eye Contact: Good - Speech Quality: Unpressured Latencies: Normal Quantity: Appropriate - Mood Patient's Decription of Mood: "Sad" - Affect Observed Affect: Constricted Affect Consistent with: Dysphoria - Thought Process Patient's Thought Process: Coherent Thought Content: No Passive Wish, No Suicidal Planning, No Homicidal Ideation, No Paranoid Ideation - Sensorium Experiencing Hallucinations: No, Sensorium is Clear Type of Hallucinations: Visual: No, Auditory: No, Command: No - Level of Consciousness Level of Consciousness: Alert Orientation: Yes Intact, Yes Orientated to Time, Yes Orientated to Place, Yes Orientated to Person - Impulse Control Impulse Control: Tenuous - Insight and Judgement Insight and Judgement: Fair - Group Participation Particating in Group Activities: Yes - Medication Management Medication Management Adherence: Yes Assessment - Assessment Merits Inpatient Hospitalization: Consolidate Improvements, Pending Safe DC Plan Inpatient DSM-IV Dx: MDD, single episode, severe with psychotic features Clinical Impression: 70 y.o. white male with a history of opioid abuse arrived after snorting 6 tabs of crushed bupropion XL in a suicide attempt. Plan - Plan Treatment Plan: Name: KRISTINE DIAZ Birthdate: 1945 [id number] The patient is improving with the milieu as well as venlafaxine, mirtazapine and quetiapine. He remains depressed, largely for psychosocial reasons. He needs rehab, either inpatient or outpatient, and community placement. Continued Medication Management: Different Medication Medications: Current Medications Acetaminophen (Tylenol Tab*) 975 mg PO Q6H PRN PRN Reason: PAIN Last Admin: 06/03/16 11:12 Dose: 975 mg Diclofenac Sodium (Voltaren Ec Tab*) 50 mg PO BID [facility] Last Admin: 06/05/16 08:26 Dose: 50 mg Enalapril Maleate (Vasotec Tab*) 20 mg PO DAILY [facility] Last Admin: 06/05/16 08:26 Dose: 20 mg Hydrochlorothiazide (Hydrodiuril Tab*) 50 mg PO DAILY [facility] Last Admin: 06/05/16 08:27 Dose: 50 mg Levothyroxine Sodium (Synthroid Tab*) 88 mcg PO DAILY [facility] Last Admin: 06/05/16 08:27 Dose: 88 mcg Mirtazapine (Remeron Tab*) 30 mg PO BEDTIME [facility] Last Admin: 06/04/16 20:32 Dose: 30 mg Nicotine (Nicotine Inhaler*) 10 mg INH Q2H PRN PRN Reason: CRAVING Last Admin: 06/05/16 08:30 Dose: 10 mg Nicotine (Nicotine Patch 21 Mg/24 Hr*) 1 patch TRANSDERM Q24HR [facility] Last Admin: 06/05/16 08:28 Dose: 1 patch Nicotine Polacrilex (Nicotine Gum*) 2 mg PO Q2H PRN PRN Reason: CRAVING Pharmacy Profile Note (Nicotine Patch Removal Note*) 1 note PATCH OFF 2100 [facility] Last Admin: 06/04/16 20:32 Dose: 1 note Quetiapine Fumarate (Seroquel Tab*) 100 mg PO BEDTIME [facility] Last Admin: 06/04/16 20:32 Dose: 100 mg Venlafaxine HCl (Effexor Xr Cap*) 150 mg PO DAILY [facility] Last Admin: 06/05/16 08:26 Dose: 150 mg - Discharge Plan Discharge Plan: Inpatient Hospitalization
[2016-06-05] MEDS: Mirtazapine TAB* 15 MG PO SCH (20:33)
[2016-06-05] MEDS: Nicotine Patch Removal NOTE PATCH OFF SCH (20:33)
[2016-06-05] MEDS: QUEtiapine TAB* 100 MG PO SCH (20:33)
[2016-06-06] MEDS: Nicotine Inhaler* 10 MG AMP INH PRN ×4 (07:20→17:47)
[2016-06-06] MEDS: Nicotine PATCH 21 MG/24 HR* PATCH TRANSDERM SCH (08:22)
[2016-06-06] MEDS: Levothyroxine TAB* 88 MCG TAB PO SCH (08:23)
[2016-06-06] MEDS: Diclofenac Sodium EC TAB* 25 MG PO SCH ×2 (08:23→20:18)
[2016-06-06] MEDS: Enalapril TAB* 20 MG PO SCH (08:24)
[2016-06-06] MEDS: Hydrochlorothiazide TAB* 50 MG PO SCH (08:24)
[2016-06-06] MEDS: Venlafaxine EXT RELEASE CAP* 75 MG PO SCH (08:24)
[2016-06-06] MEDS: Acetaminophen TAB* 325 MG PO PRN (15:18)
[2016-06-06] MEDS: Mirtazapine TAB* 15 MG PO SCH (20:17)
[2016-06-06] MEDS: QUEtiapine TAB* 100 MG PO SCH (20:17)
[2016-06-06] MEDS: Nicotine Patch Removal NOTE PATCH OFF SCH (20:20)
[2016-06-07] MEDS: Acetaminophen TAB* 325 MG PO PRN (05:14)
[2016-06-07] MEDS: Nicotine Inhaler* 10 MG AMP INH PRN ×2 (05:16→15:49)
[2016-06-07] MEDS: Nicotine PATCH 21 MG/24 HR* PATCH TRANSDERM SCH (08:39)
[2016-06-07] MEDS: Levothyroxine TAB* 88 MCG TAB PO SCH (08:40)
[2016-06-07] MEDS: Venlafaxine EXT RELEASE CAP* 75 MG PO SCH (08:40)
[2016-06-07] MEDS: Diclofenac Sodium EC TAB* 25 MG PO SCH ×2 (08:40→19:44)
[2016-06-07] MEDS: Hydrochlorothiazide TAB* 50 MG PO SCH (08:40)
[2016-06-07] MEDS: Enalapril TAB* 20 MG PO SCH (08:40)
[2016-06-07] MEDS ORDERED: Al Hydrox/Mg Hydrox/Simet LIQ* 30 ML UDC PO PRN (19:00)
[2016-06-07] MEDS: QUEtiapine TAB* 100 MG PO SCH (19:44)
[2016-06-07] MEDS: Mirtazapine TAB* 15 MG PO SCH (19:44)
[2016-06-07] MEDS: Nicotine Patch Removal NOTE PATCH OFF SCH (22:28)
[2016-06-08] MEDS: Nicotine Inhaler* 10 MG AMP INH PRN ×5 (06:02→21:16)
[2016-06-08] MEDS: Nicotine PATCH 21 MG/24 HR* PATCH TRANSDERM SCH (08:46)
[2016-06-08] MEDS: Levothyroxine TAB* 88 MCG TAB PO SCH (08:47)
[2016-06-08] MEDS: Diclofenac Sodium EC TAB* 25 MG PO SCH ×2 (08:47→21:16)
[2016-06-08] MEDS: Enalapril TAB* 20 MG PO SCH (08:47)
[2016-06-08] MEDS: Hydrochlorothiazide TAB* 50 MG PO SCH (08:47)
[2016-06-08] MEDS: Venlafaxine EXT RELEASE CAP* 75 MG PO SCH (08:47)
--- NOTE | 2016-06-08 12:48 | PN ---
MHU: Group Therapy Note - Service Type Service Type: [id number] Group Psychotherapy - Cognitive Behavioral Group Therapy ( CBT):Patient was attentive and participatory in CBT programming this morning, and remained in good behavioral control. Patient expressed positive insights regarding relevant treatment interventions and goals.
[2016-06-08] MEDS: Acetaminophen TAB* 325 MG PO PRN (15:18)
--- NOTE | 2016-06-08 16:35 | PN ---
Subjective - Subjective Service Type: [id number] Hosp care 15 min low complexity Subjective: The patient remains actively engaged in groups and appears eager to work towards feeling better. Today was somewhat of a setback for him, in his estimation, because he found out through inpatient SW Elizabeth Almodovar that placement at [facility] was entirely self-pay, for which he does not have resources, and he does not meet criteria for Retirement care. This likely means that the discharge disposition will have him returning, albeit temporarily, to his low-rent apartment building in [place], where he has a history of becoming socially isolative, withdrawn and depressed. He denies SI today but could not contract for safety if discharged home. Objective - Appearance Appearance: Well Developed/Nourished Dysmorphic Features: No Hygiene: Normal Grooming: Well Kept - Behavior Psychomotor Activities: Normal Exhibits Abnormal Movement: No - Attitude and Relatedness Attitude and Relatedness: Cooperative Eye Contact: Fair - Speech Quality: Unpressured Latencies: Normal Quantity: Appropriate - Mood Patient's Decription of Mood: "Sad" - Affect Observed Affect: Depressed Affect Consistent with: Dysphoria - Thought Process Patient's Thought Process: Coherent Thought Content: No Passive Wish, No Suicidal Planning, No Homicidal Ideation, No Paranoid Ideation - Sensorium Experiencing Hallucinations: No, Sensorium is Clear Type of Hallucinations: Visual: No, Auditory: No, Command: No - Level of Consciousness Level of Consciousness: Alert Orientation: Yes Intact, Yes Orientated to Time, Yes Orientated to Place, Yes Orientated to Person - Impulse Control Impulse Control: Tenuous - Insight and Judgement Insight and Judgement: Fair - Group Participation Particating in Group Activities: Yes - Medication Management Medication Management Adherence: Yes Assessment - Assessment Merits Inpatient Hospitalization: Consolidate Improvements, Pending Safe DC Plan Inpatient DSM-IV Dx: MDD, single episode, severe with psychotic features Clinical Impression: 70 y.o. white male with a history of opioid abuse arrived after snorting 6 tabs of crushed bupropion XL in a suicide attempt. Plan - Plan Treatment Plan: Name: KRISTINE DIAZ Birthdate: 1945 [id number] The patient is improving with the milieu as well as venlafaxine, mirtazapine and quetiapine. He remains depressed, largely for psychosocial reasons. He needs rehab, either inpatient or outpatient, and community placement. Continued Medication Management: Different Medication Medications: Current Medications Acetaminophen (Tylenol Tab*) 975 mg PO Q6H PRN PRN Reason: PAIN Last Admin: 06/08/16 15:18 Dose: 975 mg Al Hydrox/Mg Hydrox/Simethicone (Maalox Plus*) 30 ml PO Q4H PRN PRN Reason: INDIGESTION Last Admin: 06/07/16 19:43 Dose: 30 ml Diclofenac Sodium (Voltaren Ec Tab*) 50 mg PO BID [facility] Last Admin: 06/08/16 08:47 Dose: 50 mg Enalapril Maleate (Vasotec Tab*) 20 mg PO DAILY [facility] Last Admin: 06/08/16 08:47 Dose: 20 mg Hydrochlorothiazide (Hydrodiuril Tab*) 50 mg PO DAILY [facility] Last Admin: 06/08/16 08:47 Dose: 50 mg Levothyroxine Sodium (Synthroid Tab*) 88 mcg PO DAILY [facility] Last Admin: 06/08/16 08:47 Dose: 88 mcg Mirtazapine (Remeron Tab*) 30 mg PO BEDTIME [facility] Last Admin: 06/07/16 19:44 Dose: 30 mg Nicotine (Nicotine Inhaler*) 10 mg INH Q2H PRN PRN Reason: CRAVING Last Admin: 06/08/16 15:19 Dose: 10 mg Nicotine (Nicotine Patch 21 Mg/24 Hr*) 1 patch TRANSDERM Q24HR [facility] Last Admin: 06/08/16 08:46 Dose: 1 patch Nicotine Polacrilex (Nicotine Gum*) 2 mg PO Q2H PRN PRN Reason: CRAVING Pharmacy Profile Note (Nicotine Patch Removal Note*) 1 note PATCH OFF 2100 [facility] Last Admin: 06/07/16 22:28 Dose: 1 note Quetiapine Fumarate (Seroquel Tab*) 100 mg PO BEDTIME [facility] Last Admin: 06/07/16 19:44 Dose: 100 mg Venlafaxine HCl (Effexor Xr Cap*) 150 mg PO DAILY [facility] Last Admin: 06/08/16 08:47 Dose: 150 mg - Discharge Plan Discharge Plan: Inpatient Hospitalization
[2016-06-08] MEDS: Mirtazapine TAB* 15 MG PO SCH (21:16)
[2016-06-08] MEDS: QUEtiapine TAB* 100 MG PO SCH (21:16)
[2016-06-08] MEDS: Nicotine Patch Removal NOTE PATCH OFF SCH (22:14)
[2016-06-09] MEDS: Nicotine PATCH 21 MG/24 HR* PATCH TRANSDERM SCH (08:28)
[2016-06-09] MEDS: Nicotine Inhaler* 10 MG AMP INH PRN ×4 (08:28→20:51)
[2016-06-09] MEDS: Venlafaxine EXT RELEASE CAP* 75 MG PO SCH (08:29)
[2016-06-09] MEDS: Hydrochlorothiazide TAB* 50 MG PO SCH (08:29)
[2016-06-09] MEDS: Diclofenac Sodium EC TAB* 25 MG PO SCH ×2 (08:29→20:53)
[2016-06-09] MEDS: Levothyroxine TAB* 88 MCG TAB PO SCH (08:29)
[2016-06-09] MEDS: Enalapril TAB* 20 MG PO SCH (08:30)
[2016-06-09] MEDS: Acetaminophen TAB* 325 MG PO PRN (12:24)
--- NOTE | 2016-06-09 13:04 | PN ---
MHU: Group Therapy Note - Service Type Service Type: [id number] Group Psychotherapy - Cognitive Behavioral Group Therapy ( CBT):Patient was attentive and participatory in CBT programming this morning, and remained in good behavioral control. Patient expressed positive insights regarding relevant treatment interventions and goals.
--- NOTE | 2016-06-09 14:19 | PN ---
Subjective - Subjective Service Type: 02941 Hosp care 15 min low complexity Subjective: The patient continues to be a productive member of the milieu, regularly attending groups and finding ways of making meaningful gains in his overall coping. He has resigned himself to the fact that he must return to his apartment at least for the time being prior to placement in a more socially engaged environment. He is willing to follow up with both outpatient MH and substance abuse treatments. Today he denies SI. Objective - Appearance Appearance: Well Developed/Nourished Dysmorphic Features: No Hygiene: Normal Grooming: Well Kept - Behavior Psychomotor Activities: Normal Exhibits Abnormal Movement: No - Attitude and Relatedness Attitude and Relatedness: Cooperative Eye Contact: Good - Speech Quality: Unpressured Latencies: Normal Quantity: Appropriate - Mood Patient's Decription of Mood: "Okay" - Affect Observed Affect: Depressed Affect Consistent with: Dysphoria - Thought Process Patient's Thought Process: Coherent Thought Content: No Passive Wish, No Suicidal Planning, No Homicidal Ideation, No Paranoid Ideation - Sensorium Experiencing Hallucinations: No, Sensorium is Clear Type of Hallucinations: Visual: No, Auditory: No, Command: No - Level of Consciousness Level of Consciousness: Alert Orientation: No Intact, No Orientated to Time, No Orientated to Place, No Orientated to Person - Impulse Control Impulse Control: Tenuous - Insight and Judgement Insight and Judgement: Fair - Group Participation Particating in Group Activities: Yes - Medication Management Medication Management Adherence: Yes Assessment - Assessment Merits Inpatient Hospitalization: Consolidate Improvements, Pending Safe DC Plan Inpatient DSM-IV Dx: MDD, single episode, severe with psychotic features Clinical Impression: 70 y.o. white male with a history of opioid abuse arrived after snorting 6 tabs of crushed bupropion XL in a suicide attempt. Plan - Plan Treatment Plan: Name: KRISTINE DIAZ Birthdate: 1945 [id number] The patient is improving with the milieu as well as venlafaxine, mirtazapine and quetiapine. He remains depressed, largely for psychosocial reasons. Likely d/c , (06/11). Continued Medication Management: Continue Outpt Medication Medications: Current Medications Acetaminophen (Tylenol Tab*) 975 mg PO Q6H PRN PRN Reason: PAIN Last Admin: 06/09/16 12:24 Dose: 975 mg Al Hydrox/Mg Hydrox/Simethicone (Maalox Plus*) 30 ml PO Q4H PRN PRN Reason: INDIGESTION Last Admin: 06/07/16 19:43 Dose: 30 ml Diclofenac Sodium (Voltaren Ec Tab*) 50 mg PO BID [facility] Last Admin: 06/09/16 08:29 Dose: 50 mg Enalapril Maleate (Vasotec Tab*) 20 mg PO DAILY [facility] Last Admin: 06/09/16 08:30 Dose: 20 mg Hydrochlorothiazide (Hydrodiuril Tab*) 50 mg PO DAILY [facility] Last Admin: 06/09/16 08:29 Dose: 50 mg Levothyroxine Sodium (Synthroid Tab*) 88 mcg PO DAILY [facility] Last Admin: 06/09/16 08:29 Dose: 88 mcg Mirtazapine (Remeron Tab*) 30 mg PO BEDTIME [facility] Last Admin: 06/08/16 21:16 Dose: 30 mg Nicotine (Nicotine Inhaler*) 10 mg INH Q2H PRN PRN Reason: CRAVING Last Admin: 06/09/16 12:24 Dose: 10 mg Nicotine (Nicotine Patch 21 Mg/24 Hr*) 1 patch TRANSDERM Q24HR [facility] Last Admin: 06/09/16 08:28 Dose: 1 patch Nicotine Polacrilex (Nicotine Gum*) 2 mg PO Q2H PRN PRN Reason: CRAVING Pharmacy Profile Note (Nicotine Patch Removal Note*) 1 note PATCH OFF 2100 [facility] Last Admin: 06/08/16 22:14 Dose: 1 note Quetiapine Fumarate (Seroquel Tab*) 100 mg PO BEDTIME [facility] Last Admin: 06/08/16 21:16 Dose: 100 mg Venlafaxine HCl (Effexor Xr Cap*) 150 mg PO DAILY [facility] Last Admin: 06/09/16 08:29 Dose: 150 mg - Discharge Plan Discharge Plan: Outpatient Follow Up [facility]
[2016-06-09] MEDS: Mirtazapine TAB* 15 MG PO SCH (20:51)
[2016-06-09] MEDS: QUEtiapine TAB* 100 MG PO SCH (20:51)
[2016-06-09] MEDS: Nicotine Patch Removal NOTE PATCH OFF SCH (20:52)
[2016-06-10] MEDS: Nicotine PATCH 21 MG/24 HR* PATCH TRANSDERM SCH (08:24)
[2016-06-10] MEDS: Levothyroxine TAB* 88 MCG TAB PO SCH (08:25)
[2016-06-10] MEDS: Nicotine Inhaler* 10 MG AMP INH PRN ×3 (08:25→16:05)
[2016-06-10] MEDS: Venlafaxine EXT RELEASE CAP* 75 MG PO SCH (08:26)
[2016-06-10] MEDS: Diclofenac Sodium EC TAB* 25 MG PO SCH ×2 (08:26→20:17)
[2016-06-10] MEDS: Hydrochlorothiazide TAB* 50 MG PO SCH (08:26)
[2016-06-10] MEDS: Enalapril TAB* 20 MG PO SCH (08:26)
--- NOTE | 2016-06-10 11:58 | PN ---
MHU: Group Therapy Note - Service Type Service Type: [id number] Group Psychotherapy - Cognitive Behavioral Group Therapy ( CBT):Patient was attentive and participatory in CBT programming this morning, and remained in good behavioral control. Patient expressed positive insights regarding relevant treatment interventions and goals.
[2016-06-10] MEDS: Acetaminophen TAB* 325 MG PO PRN (14:20)
--- NOTE | 2016-06-10 15:07 | PN ---
Subjective - Subjective Service Type: 27443 Hosp care 15 min low complexity Subjective: Jaguar reports that he feels tomorrow would be appropriate for discharge. "I'm gonna miss everybody here, especially the staff, but I think I'm ready. I've learned a lot. Now I just gotta take it out there. I know I can't sit around my apartment. I gotta do the best I can with the time that I have left." He denies SI and feels good about being with his daughter and grandkids in the future. He denies urges to abuse opioids and states that his pain is under control with non-addictive meds. Objective - Appearance Appearance: Well Developed/Nourished Dysmorphic Features: No Hygiene: Normal Grooming: Well Kept - Behavior Psychomotor Activities: Normal Exhibits Abnormal Movement: No - Attitude and Relatedness Attitude and Relatedness: Cooperative Eye Contact: Good - Speech Quality: Unpressured Latencies: Normal Quantity: Appropriate - Mood Patient's Decription of Mood: "Good" - Affect Observed Affect: Fair Affect Consistent with: Euthymia - Thought Process Patient's Thought Process: Coherent Thought Content: No Passive Wish, No Suicidal Planning, No Homicidal Ideation, No Paranoid Ideation - Sensorium Experiencing Hallucinations: No, Sensorium is Clear Type of Hallucinations: Visual: No, Auditory: No, Command: No - Level of Consciousness Level of Consciousness: Alert Orientation: Yes Intact, Yes Orientated to Time, Yes Orientated to Place, Yes Orientated to Person - Impulse Control Impulse Control: Intact - Insight and Judgement Insight and Judgement: Good - Group Participation Particating in Group Activities: Yes - Medication Management Medication Management Adherence: Yes Assessment - Assessment Merits Inpatient Hospitalization: Pending Safe DC Plan Inpatient DSM-IV Dx: MDD, single episode, severe with psychotic features Clinical Impression: 70 y.o. white male with a history of opioid abuse arrived after snorting 6 tabs of crushed bupropion XL in a suicide attempt. Plan - Plan Treatment Plan: Name: JAGUAR DIAZ Birthdate: 1945 [id number] The patient is improving with the milieu as well as venlafaxine, mirtazapine and quetiapine. Likely d/c tomorrow, , (06/11). Will need MH and substance abuse f/u in the community. Continued Medication Management: Different Medication Medications: Current Medications Acetaminophen (Tylenol Tab*) 975 mg PO Q6H PRN PRN Reason: PAIN Last Admin: 06/10/16 14:20 Dose: 975 mg Al Hydrox/Mg Hydrox/Simethicone (Maalox Plus*) 30 ml PO Q4H PRN PRN Reason: INDIGESTION Last Admin: 06/07/16 19:43 Dose: 30 ml Diclofenac Sodium (Voltaren Ec Tab*) 50 mg PO BID [facility] Last Admin: 06/10/16 08:26 Dose: 50 mg Enalapril Maleate (Vasotec Tab*) 20 mg PO DAILY [facility] Last Admin: 06/10/16 08:26 Dose: 20 mg Hydrochlorothiazide (Hydrodiuril Tab*) 50 mg PO DAILY [facility] Last Admin: 06/10/16 08:26 Dose: 50 mg Levothyroxine Sodium (Synthroid Tab*) 88 mcg PO DAILY [facility] Last Admin: 06/10/16 08:25 Dose: 88 mcg Mirtazapine (Remeron Tab*) 30 mg PO BEDTIME [facility] Last Admin: 06/09/16 20:51 Dose: 30 mg Nicotine (Nicotine Inhaler*) 10 mg INH Q2H PRN PRN Reason: CRAVING Last Admin: 06/10/16 14:20 Dose: 10 mg Nicotine (Nicotine Patch 21 Mg/24 Hr*) 1 patch TRANSDERM Q24HR [facility] Last Admin: 06/10/16 08:24 Dose: 1 patch Nicotine Polacrilex (Nicotine Gum*) 2 mg PO Q2H PRN PRN Reason: CRAVING Pharmacy Profile Note (Nicotine Patch Removal Note*) 1 note PATCH OFF 2100 [facility] Last Admin: 06/09/16 20:52 Dose: 1 note Quetiapine Fumarate (Seroquel Tab*) 100 mg PO BEDTIME [facility] Last Admin: 06/09/16 20:51 Dose: 100 mg Venlafaxine HCl (Effexor Xr Cap*) 150 mg PO DAILY [facility] Last Admin: 06/10/16 08:26 Dose: 150 mg - Discharge Plan Discharge Plan: Outpatient Follow Up Outpatient [facility]
[2016-06-10] MEDS: QUEtiapine TAB* 100 MG PO SCH (20:17)
[2016-06-10] MEDS: Nicotine Patch Removal NOTE PATCH OFF SCH (20:17)
[2016-06-10] MEDS: Mirtazapine TAB* 15 MG PO SCH (20:17)
[2016-06-11] MEDS: Nicotine Inhaler* 10 MG AMP INH PRN ×3 (06:08→13:01)
[2016-06-11 07:43] VITALS: BP 145/85
[2016-06-11] MEDS: Nicotine PATCH 21 MG/24 HR* PATCH TRANSDERM SCH (08:50)
[2016-06-11] MEDS: Levothyroxine TAB* 88 MCG TAB PO SCH (08:50)
[2016-06-11] MEDS: Hydrochlorothiazide TAB* 50 MG PO SCH (08:51)
[2016-06-11] MEDS: Diclofenac Sodium EC TAB* 25 MG PO SCH (08:51)
[2016-06-11] MEDS: Enalapril TAB* 20 MG PO SCH (08:51)
[2016-06-11] MEDS: Venlafaxine EXT RELEASE CAP* 75 MG PO SCH (08:51)
[2016-06-11] MEDS: Acetaminophen TAB* 325 MG PO PRN (13:02)
--- NOTE | 2016-06-11 13:45 | PN ---
MHU: Group Therapy Note - Service Type Service Type: 33989 Group Psychotherapy - Cognitive Behavioral Group Therapy ( CBT):Patient was attentive and participatory in CBT programming this morning, and remained in good behavioral control. Patient expressed positive insights regarding relevant treatment interventions and goals.
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
== END 2016-06-11 17:30 | disposition home or self-care (01) | DRG 885 ==
LOC: ED 08:24 → BSU 17:16
PROVIDERS: ADMIT Psychiatry & Neurology Psychiatry; ATTEND Psychiatry & Neurology Psychiatry
PROC: GZHZZZZ Group Psychotherapy (ICD-10-PCS; principal; 2016-05-28)
PROC: GZ3ZZZZ Medication Management (ICD-10-PCS; 2016-05-28)
DX: F33.3 Major depressive disorder, recurrent, severe with psychotic symptoms (principal); J44.9 Chronic obstructive pulmonary disease, unspecified; G89.29 Other chronic pain; M25.559 Pain in unspecified hip; H91.10 Presbycusis, unspecified ear; I10 Essential (primary) hypertension; E03.9 Hypothyroidism, unspecified; F17.210 Nicotine dependence, cigarettes, uncomplicated; F10.21 Alcohol dependence, in remission; F41.9 Anxiety disorder, unspecified; T43.292A Poisoning by other antidepressants, intentional self-harm, initial encounter; R42 Dizziness and giddiness; R53.1 Weakness; F11.90 Opioid use, unspecified, uncomplicated; H93.19 Tinnitus, unspecified ear; Z91.5 Personal history of self-harm; Z87.898 Personal history of other specified conditions; Z90.49 Acquired absence of other specified parts of digestive tract
CPT/HCPCS: 36415; 70450; 71020; 80053; 80307; 80320; 80329; 81003; 81015; 82550; 83605; 83735; 83880; 84443; 84484; 85025; 85610; 86140; 87086; 90847; 90853; 93005; 96360; 99222; 99231; 99232; 99238; 99283; 99406; A9270-GY; G0480

== ENCOUNTER 2018-05-30 09:40 | Inpatient (IN) | payer MEDICARE ==
--- NOTE | 2018-05-30 09:52 | ED ---
HPI Chest Pain - HPI Summary HPI Summary: A 72 y/o M presents to ED with CP onset 4 days ago. He states that he stopped taking his Oxycodone cold-turkey around the time of onset. He was taking 30 mg for his chronic hip pain, and last took it 4 days ago. He dumped the Oxy down the toilet. Associated SOB, mild tremors, myalgia. He also has a bilateral red rash that is non-pruritic on his trunk. Denies: diarrhea. Patient uses an inhaler. At bedside, pt states "feeling old and tired." Hes had SI for months, but hasnt spoken to anyone about it. His family lives in [place]. Denies cardiac problem, cirrhosis, HIV. He is a smoker. - History of Current Complaint Chief Complaint: EDChestPainROMI Time Seen by Provider: 05/30/18 09:50 Hx Obtained From: Patient Onset/Duration: Started Days Ago, Still Present Timing: Constant, Lasting Days Initial Severity: Moderate Current Severity: Severe Pain Intensity: 7 Pain Scale Used: 0-10 Numeric Associated Signs and Symptoms: Positive: Shortness of Breath, Other: - pos: mild tremors, myalgia, SI, rash. neg: diarrhea - Additional Pertinent History Primary Care Physician: LATOSHA - Allergy/Home Medications Allergies/Adverse Reactions: Allergies Allergy/AdvReac Type Severity Reaction Status Date / Time nickel Allergy Severe Hives Verified 05/30/18 09:43 Home Medications: Home Medications Enalapril Maleate 40 mg PO DAILY 05/30/18 [History Confirmed 05/30/18] Mirtazapine TAB* [Remeron TAB*] 30 mg PO BEDTIME 05/30/18 [History Confirmed ] Simvastatin 20 mg PO BEDTIME 05/30/18 [History Confirmed 05/30/18] amLODIPine TAB* [Norvasc 5 mg TAB*] 5 mg PO DAILY 05/30/18 [History Confirmed ] PMH/Surg Hx/FS Hx/Imm Hx Previously Healthy: No Cardiovascular History: Reports: Hx Angina, Hx Hypertension Denies: Hx Coronary Artery Disease, Hx Hypercholesterolemia, Hx Myocardial Infarction, Hx Valvular Heart Disease Respiratory History: Reports: Hx Chronic Obstructive Pulmonary Disease (COPD) - Emphysema, Other Respiratory Problems/Disorders - Emphysema GI History: Reports: Hx Gall Bladder Disease - Had cholysystectomy several years ago, Other GI Disorders - Pt reports surgical removal of large portion of his intestines Musculoskeletal History: Reports: Hx Orthopedic Injury Sensory History: Reports: Hx Contacts or Glasses Denies: Hx Cataracts Opthamlomology History: Reports: Hx Contacts or Glasses Denies: Hx Cataracts Neurological History: Reports: Other Neuro Impairments/Disorders - numbness from right knee up to hip Psychiatric History: Reports: Hx Anxiety, Hx Depression, Hx Suicide Attempt, Hx Substance Abuse - oxycodone addiction Denies: Hx Eating Disorder, Hx of Violent Episodes Against Others - Surgical History Surgery Procedure, Year, and Place: cholysystectomy several years ago, Rt. hip surgery, Rt. abdominal surgery. Hx Anesthesia Reactions: No Infectious Disease History: No Infectious Disease History: Denies: Hx Clostridium Difficile, Hx Hepatitis, Hx Human Immunodeficiency Virus (HIV), Hx of Known/Suspected MRSA, Hx Shingles, Hx Tuberculosis, Hx Known/ Suspected VRE, Hx Known/Suspected VRSA, History Other Infectious Disease, Traveled Outside the in Last 30 Days - Family History Known Family History: Negative: Cardiac Disease, Hypertension, Diabetes - Social History Occupation: Disabled Lives: Alone Alcohol Use: None Substance Use Comment - Amount & Last Used: OXYCODONE Hx Tobacco Use: Yes Smoking Status (MU): Heavy Every Day Tobacco Smoker Type: Cigarettes Amount Used/How Often: 2 and a half packs/day Have You Smoked in the Last Year: Yes Review of Systems Positive: Chest Pain Positive: Shortness Of Breath Negative: Diarrhea Musculoskeletal: Other - pos: mild tremors Positive: Myalgia Positive: Rash Psychological: Other - pos: SI All Other Systems Reviewed And Are Negative: Yes Physical Exam - Summary Physical Exam Summary: Appearance: Well appearing, no pain distress Skin: warm, dry, reflects adequate perfusion, erythematous plaques with scaling on bilateral trunk Head/face: normal Eyes: EOMI, CALI ENT: mucous membranes moist Neck: supple, non-tender Respiratory: breath sounds present, diminished L base with mild expiratory wheezes Cardiovascular: tachy, pulses symmetrical Abdomen: non-tender, soft. Multiple surgical scars across abd, particularly RLQ. Bowel Sounds: present Musculoskeletal: normal, strength/ROM intact, no LE edema Neuro: normal, sensory motor intact, A&Ox3 Triage Information Reviewed: Yes Vital Signs On Initial Exam: Initial Vitals Temp Pulse Resp BP Pulse Ox 97.6 F 94 22 107/77 94 05/30/18 09:45 05/30/18 09:45 05/30/18 09:45 05/30/18 09:45 05/30/18 09:45 Vital Signs Reviewed: Yes Diagnostics - Vital Signs Vital Signs Temp Pulse Resp BP Pulse Ox 05/30/18 09:45 97.6 F 94 22 107/77 94 - Laboratory Result Diagrams: 05/30/18 09:38 05/30/18 09:38 Lab Statement: Any lab studies that have been ordered have been reviewed, and results considered in the medical decision making process. - Radiology CXR Radiology Interpretation Completed By: Radiologist Summary of Radiographic Findings: IMPRESSION: #. Stigmata of obstructive lung disease. No acute pulmonary or cardiac process evident. ED provider has reviewed this report. - EKG 0944 Cardiac Rate: Tachycardia - 100bpm EKG Rhythm: Sinus Tachycardia ST Segment: Normal Ectopy: PACs Summary of EKG Findings: LAD, inferior Q waves, poor R-wave progress. Re-Evaluation - Re-Evaluation 1 Re-Evaluation Time: 11:35 Change: Unchanged Chest Pain Course/Dx - Course Course Of Treatment: Pt is medically clear for MHE at 11:37. He shouldn't had mild withdrawal symptoms from not using opiate. Likely out of medication although he describes flushing it down the toilet. He did ultimately asked for medication by name here. After medication was given his tachycardia resolved. He is having suicidal ideation and was cleared following treatment for his wheezing/COPD exacerbation. He was given a dose of oral steroid here. 1224: Per slitter helper: Dr. Salcedo [facility], approves voluntary admission. Dx: Major depressive disorder. - Chest Pain Differential Diagnosis/HQI/PQRI: Acute DE, CHF, GI Disease, Lower Respiratory Infection - Diagnoses Provider Diagnoses: COPD exacerbation, Opiate withdrawal, Chronic pain, Suicidal ideation, Major depressive disorder Discharge - Sign-Out/Discharge Documenting (check all that apply): Patient Departure - ADMIT - U - Discharge Plan Condition: Fair Disposition: PSYCHIATRIC FACILITY-[facility] Referrals: Brandon Romero [Primary Care Provider] - - Billing Disposition and Condition Condition: FAIR Disposition: Psychiatric Facility [facility] - Attestation Statements Document Initiated by Scribe: Yes Documenting Scribe: SooYoung VanDeMark Provider For Whom Scribe is Documenting (Include Credential): Dr. Ajith Moreno MD Scribe Attestation: IRhett scribed for Dr. Ajith Moreno MD on 05/30/18 at 1622. Scribe Documentation Reviewed: Yes Provider Attestation: The documentation as recorded by the migue, Rhett Robert accurately reflects the service I personally performed and the decisions made by me, Dr. Ajith Mroeno MD Status of Scribe Document: Viewed
[2018-05-30] MEDS ORDERED: Lidocaine PATCH 5%* 1 PATCH TRANSDERM ONE (10:05)
[2018-05-30] MEDS ORDERED: Meloxicam(NF) 7.5 MG TAB PO ONE (10:06)
[2018-05-30] MEDS ORDERED: celeCOXIB CAP* 100 MG PO ONE (10:14)
[2018-05-30] MEDS ORDERED: Albuterol/Ipratropium NEB.SOL* Albuterol 2.5 MG/Ipratropium 0.5 MG 3 ML INH ONE (10:16)
[2018-05-30] MEDS ORDERED: Albuterol/Ipratropium NEB.SOL* Albuterol 2.5 MG/Ipratropium 0.5 MG 3 ML ONE (10:18)
[2018-05-30] MEDS ORDERED: oxyCODONE TAB* 5 MG TAB PO ONE (10:23)
[2018-05-30 10:47] LABS: ABS Basophils 0 10^3/ul (0-0.2); ABS Eosinophils 0 10^3/ul (0-0.6); ABS Lymphocytes 1.2 10^3/ul (1.0-4.8); ABS Neutrophils 8.8 10^3/ul (1.5-7.7); ABS Nucleated RBC 0 10^3/ul; Eosinophil % 0.1 %; Hematocrit 50 % (42-52); Hemoglobin 16.4 g/dl (14.0-18.0); Lymphocyte % 10.5 %; Mean Corpuscular HGB Conc 33 g/dl (31-36); Mean Corpuscular Hemoglobin 27 pg (27-31); Mean Corpuscular Volume 83 fL (80-94); Mean Platelet Volume 8.7 fL (7.4-10.4); Nucleated Red Blood Cells % 0.1; Platelet Count 208 10^3/ul (150-450); Red Cell Distribution Width 15 % (10.5-15)
[2018-05-30 11:10] LABS: Troponin I 0.01 ng/mL (<0.04)
[2018-05-30 11:11] LABS: ALT 29 U/L (7-52); AST 25 U/L (13-39); Albumin 4.1 g/dL (3.2-5.2); Albumin/Globulin Ratio 1.2 (1-3); Alkaline Phosphatase 91 U/L (34-104); Anion Gap 11 mmol/L (2-11); BUN/Creatinine Ratio 18.3 (8-20); Blood Urea Nitrogen 21 mg/dL (6-24); CO2 Carbon Dioxide 26 mmol/L (22-32); Calcium 11.1 mg/dL (8.6-10.3); Chloride 100 mmol/L (101-111); EGFR African American 75.2 (>60); EGFR Non-African American 62.2 (>60); Globulin 3.4 g/dL (2-4); Glucose 125 mg/dL (70-100); Sodium 137 mmol/L (135-145); Total Protein 7.5 g/dL (6.4-8.9)
[2018-05-30 11:22] LABS: Rapid HIV 1 Nonreactive (Nonreactive)
[2018-05-30 11:25] LABS: Acetaminophen < 15 mcg/mL; Alcohol < 10 mg/dL (<10); Salicylate < 2.50 mg/dL (<30)
[2018-05-30] MEDS ORDERED: predniSONE TAB* 20 MG PO ONE (11:37)
[2018-05-30] MEDS ORDERED: Acetaminophen TAB* 325 MG PO PRN (12:38)
[2018-05-30] MEDS ORDERED: Nicotine GUM* 2 MG PO PRN (12:38)
[2018-05-30] MEDS ORDERED: Al Hydrox/Mg Hydrox/Simet LIQ* 30 ML UDC PO PRN (12:38)
[2018-05-30] MEDS: Mouth Piece, Nicotine* 1 EACH CARTRIDGE ONE (16:35)
[2018-05-30] MEDS: Nicotine Inhaler* 10 MG AMP INH PRN (16:35)
[2018-05-30] MEDS: hydrOXYzine HCL TAB* 50 MG PO PRN (17:39)
[2018-05-30 18:19] LABS: Urine Appearance Cloudy; Urine Bacteria Absent (Absent); Urine Bilirubin Negative (Negative); Urine Blood Negative (Negative); Urine Color Amber; Urine Glucose Negative (Negative); Urine Ketones Trace (Negative); Urine Nitrite Negative (Negative); Urine Protein 1+(30 mg/dL) (Negative); Urine Red Blood Cell 1+(3-5/hpf) (Absent); Urine Specific Gravity 1.027 (1.010-1.030); Urine Squamous Epithelial Cell Present (Absent); Urine Urobilinogen Positive (Negative); Urine White Blood Cell Trace(0-5/hpf) (Absent)
[2018-05-30 18:47] LABS: Barbiturates Urine Screen None Detected (None Detect); Benzodiazepine Urine Screen None Detected (None Detect); Urine Cannabinoids Screen None Detected (None Detect)
[2018-05-30] MEDS: Atorvastatin* 10 MG TAB PO SCH (20:12)
[2018-05-30] MEDS: Lidocaine Patch REMOVE* 1 NOTE MISC SCH (20:12)
[2018-05-30] MEDS: Mirtazapine TAB* 15 MG PO SCH (20:12)
[2018-05-31] MEDS: hydrOXYzine HCL TAB* 50 MG PO PRN ×2 (06:55→12:58)
[2018-05-31] MEDS: Nicotine Inhaler* 10 MG AMP INH PRN ×4 (06:55→18:30)
[2018-05-31] MEDS ORDERED: Venlafaxine EXT RELEASE CAP* 75 MG PO SCH (09:00)
[2018-05-31] MEDS: Levothyroxine TAB* 100 MCG TAB PO SCH (09:26)
[2018-05-31] MEDS: Enalapril TAB* 20 MG PO SCH (09:27)
[2018-05-31] MEDS: Liothyronine TAB* 25 MCG PO SCH (09:27)
[2018-05-31] MEDS: amLODIPine TAB* 5 MG PO SCH (09:27)
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
[2018-05-31] MEDS ORDERED: Venlafaxine EXT RELEASE CAP* 37.5 MG PO ONE (15:00)
[2018-05-31] MEDS ORDERED: Iohexol 350* (CONTRAST) 500 ML MDV IV ONE (15:21)
[2018-05-31] MEDS: Aspirin EC TAB* 81 MG TAB.EC PO SCH (16:17)
[2018-05-31] MEDS: Prazosin CAP* 1 MG PO SCH (18:15)
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
[2018-05-31] MEDS: Atorvastatin* 10 MG TAB PO SCH (20:37)
[2018-05-31] MEDS: Mirtazapine TAB* 15 MG PO SCH (20:37)
[2018-05-31] MEDS: Lidocaine Patch REMOVE* 1 NOTE MISC SCH (20:51)
[2018-06-01] MEDS ORDERED: Ondansetron ODT TAB* 4 MG ONE (03:51)
[2018-06-01] MEDS ORDERED: Nitroglycerin TAB 0.4 MG* 0.4 MG TAB SL ONE (03:53)
[2018-06-01] MEDS ORDERED: Ondansetron ODT TAB* 4 MG SL ONE (03:54)
[2018-06-01] MEDS: hydrOXYzine HCL TAB* 50 MG PO PRN ×2 (04:11→16:37)
--- NOTE | 2018-06-01 04:13 | PN ---
Hospitalist Progress Note Date of Service: 06/01/18 Clinical assessment team was called to the unit to evaluate the patient. Patient having chest pain, and nausea, with some shortness of breath. There is no associated diaphoresis or palpitations. BP: 130/64, HR: 105, RR: 26 patient was sitting at the nursing station. We took the patient to his room, repeat vitals, BP: 135/77, HR: 84, RR: 14 Lying in bed, not in distress mild chest wall tenderness, RRR, no murmurs no tachypnea, no use of accessory muscles, clear to auscultation bowel sounds normoactive, soft, non-tender EKG: sinus rhythm with PAC, unchanged from prior EKG. Chest pain: could be anxiety related, but has a stress test planned for later today. nitro Sublingual and zofran ODT given, with relief. troponin pending. to get vistaril as ordered.
[2018-06-01 04:32] LABS: HDL Cholesterol 36.5 mg/dL
[2018-06-01] MEDS: Levothyroxine TAB* 100 MCG TAB PO SCH (07:58)
[2018-06-01] MEDS ORDERED: Venlafaxine EXT RELEASE CAP* 75 MG PO SCH (09:00)
[2018-06-01] MEDS: Venlafaxine EXT RELEASE CAP* 75 MG PO SCH (09:29)
[2018-06-01] MEDS: Enalapril TAB* 20 MG PO SCH (09:29)
[2018-06-01] MEDS: Liothyronine TAB* 25 MCG PO SCH (09:29)
[2018-06-01] MEDS: Gabapentin CAP(*) 300 MG PO SCH (09:29)
[2018-06-01] MEDS: amLODIPine TAB* 5 MG PO SCH (09:30)
[2018-06-01] MEDS: Aspirin EC TAB* 81 MG TAB.EC PO SCH (09:30)
[2018-06-01] MEDS: Venlafaxine EXT RELEASE CAP* 37.5 MG PO SCH (09:30)
[2018-06-01] MEDS: Nicotine Inhaler* 10 MG AMP INH PRN ×3 (10:48→16:39)
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
[2018-06-01] MEDS ORDERED: Ondansetron TAB* 4 MG PO PRN (11:05)
[2018-06-01] MEDS ORDERED: Aminophylline IV* 25 MG/ML 10 ML VIAL ONE (12:11)
[2018-06-01] MEDS ORDERED: Regadenoson* 0.4 MG/5 ML SYRINGE ONE (12:11)
--- NOTE | 2018-06-01 14:56 | PN ---
Subjective Date of Service: 06/01/18 Interval History: Mr. Reynaga is feeling slightly better today. He continues to verbalize suicidal thoughts. He reports burning chest pain to his lower sternum and RUQ. No SOB, N/ V. Appetite is good. He has been diagnosed with prediabetes in the past, but has not even taken medication. Family History: Unchanged from Admission Social History: Unchanged from Admission Past Medical History: Unchanged from Admission Objective Active Medications: Acetaminophen (Tylenol Tab*) 650 mg PO Q4H PRN for pain; or Temp >101 F Al Hydrox/Mg Hydrox/Simethicone (Maalox Plus*) 30 ml PO Q4H PRN INDIGESTION Amlodipine Besylate (Norvasc Tab*) 5 mg PO DAILY [facility] Aspirin (Aspirin Ec Tab*) 81 mg PO DAILY [facility] Atorvastatin Calcium (Lipitor*) 10 mg PO BEDTIME [facility] Enalapril Maleate (Vasotec Tab*) 40 mg PO DAILY [facility] Gabapentin (Neurontin Cap(*)) 300 mg PO DAILY [facility] Hydroxyzine HCl (Atarax Tab*) 50 mg PO Q6H PRN ANXIETY Levothyroxine Sodium (Synthroid Tab*) 100 mcg PO 0600 [facility] Liothyronine Sodium (Cytomel Tab*) 25 mcg PO DAILY [facility] Mirtazapine (Remeron Tab*) 30 mg PO BEDTIME [facility] Nicotine (Nicotine Inhaler*) 10 mg INH Q2H PRN CRAVING Nicotine Polacrilex (Nicotine Gum*) 2 mg PO Q2H PRN CRAVING Ondansetron HCl (Zofran Tab*) 4 mg PO Q12H PRN NAUSEA Prazosin HCl (Minipress Cap*) 1 mg PO QPM [facility] Venlafaxine HCl (Effexor Xr Cap*) 150 mg PO DAILY [facility] Venlafaxine HCl (Effexor Xr Cap*) 37.5 mg PO DAILY [facility] Vital Signs - 8 hr 06/01/18 06/01/18 06/01/18 07:25 09:29 11:25 Temperature 97.4 F Pulse Rate 31 Respiratory 15 16 16 Rate Blood Pressure 139/82 (mmHg) O2 Sat by Pulse 95 Oximetry Oxygen Devices in Use Now: None Appearance: Elderly male laying in bed in NAD Eyes: No Scleral Icterus Ears/Nose/Mouth/Throat: Mucous Membranes Moist Neck: NL Appearance and Movements; NL JVP, Trachea Midline Respiratory: Symmetrical Chest Expansion and Respiratory Effort, Clear to Auscultation Cardiovascular: NL Sounds; No Murmurs; No JVD, RRR Abdominal: - - Tender to palpation of epigastric region and RUQ Skin: No Rash or Ulcers Neurological: Alert and Oriented x 3 Nutrition: Taking PO's Result Diagrams: 05/30/18 09:38 05/30/18 09:38 Assess/Plan/Problems-Billing Assessment: Mr. Reynaga is a 72 yo M with PMH of multiple psychological disorders including anxiety, HTN, hypothyroidism, chronic pain, and diabetes; who presented to the ED with suicidal ideations and was admitted to [facility]HU. Hospital Medicine is consulting for evaluation of chest pain and co-medical management. - Patient Problems (1) Chest pain Code(s): R07.9 - CHEST PAIN, UNSPECIFIED Comment: - Atypical; low concern for cardiac etiology, but he has significant risk factors (BOUBACAR score is 3) - CTA negative for PE - Trops negative x3, no EKG changes - Wide differential including GI etiology (GERD vs gallbladder disease), anxiety , musculoskeletal - Had Lexiscan today, plan for resting portion of stress test tomorrow morning - Start pantoprazole (2) Suicidal ideations Code(s): R45.851 - SUICIDAL IDEATIONS Comment: - Management per Psych (3) Mental health disorder Code(s): F99 - MENTAL DISORDER, NOT OTHERWISE SPECIFIED Comment: - Including depression, anxiety, PTSD, bipolar - Management per Psych (4) Hypertension Code(s): I10 - ESSENTIAL (PRIMARY) HYPERTENSION Comment: - Normotensive, SBP 130-140s - Continue amlodipine, enalapril (5) Prediabetes Code(s): R73.03 - PREDIABETES Comment: - A1c 6.1% - Recommend diet and exercise; no medication indicated at this time (6) Hyperlipidemia Code(s): E78.5 - HYPERLIPIDEMIA, UNSPECIFIED Comment: - Lipid panel shows good control, but LDL is low at 7 - Hold statin for now; he can likely resume this at d/c, but should f/u with his PCP to determine further management (7) Hypothyroidism Code(s): E03.9 - HYPOTHYROIDISM, UNSPECIFIED Comment: - Continue levothyroxine (8) Full code status Code(s): Z78.9 - OTHER SPECIFIED HEALTH STATUS Comment: Status and Disposition: Disposition per Psych. Attending: Edith Nevarez
[2018-06-01] MEDS: Mirtazapine TAB* 15 MG PO SCH (22:18)
[2018-06-01] MEDS: Lidocaine Patch REMOVE* 1 NOTE MISC SCH (22:18)
[2018-06-01] MEDS: Prazosin CAP* 1 MG PO SCH (22:18)
[2018-06-02] MEDS: Levothyroxine TAB* 100 MCG TAB PO SCH (06:45)
[2018-06-02] MEDS: Nicotine Inhaler* 10 MG AMP INH PRN ×4 (06:45→17:36)
[2018-06-02] MEDS: Venlafaxine EXT RELEASE CAP* 75 MG PO SCH (08:53)
[2018-06-02] MEDS: amLODIPine TAB* 5 MG PO SCH (08:54)
[2018-06-02] MEDS: Gabapentin CAP(*) 300 MG PO SCH (08:54)
[2018-06-02] MEDS: Pantoprazole TAB * 40 MG TAB PO SCH (08:54)
[2018-06-02] MEDS: Aspirin EC TAB* 81 MG TAB.EC PO SCH (08:54)
[2018-06-02] MEDS: Venlafaxine EXT RELEASE CAP* 37.5 MG PO SCH (08:54)
[2018-06-02] MEDS: Enalapril TAB* 20 MG PO SCH (09:04)
[2018-06-02] MEDS: Liothyronine TAB* 25 MCG PO SCH (09:04)
--- NOTE | 2018-06-02 11:05 | PN ---
Subjective - Subjective Date of Service: 06/02/18 Service Type: 52011 Hosp care 25 min moderate complexity Subjective: Nursing Report: Patient was visible on unit , no chemical restraints or behavioral issues reported CC: "I do not know what is the point to keep going Patient was seen and evaluated by [employer] operator today. The patient denied chest pain. He denied nightmares overnight. He reported that when he eats he feels nauseated and has loose stools. He said he doesnt know why he needs to be on earth " What is the point?" He reported that he did sleep better overnight. He continues to endorse feeling of hopelessness. Per nursing no behavioral issues. Patient continues to have suicidal ideation and becomes quiet when asked if he has a plan. He denied homicidal ideation intent or plan. He denied auditory and or visual hallucinations. He reported feeling safe on the unit. He said he doesnt want to bother anyone in his family by telling him that he is in the hospital. He did give permission to talk to his therapist [facility]. Objective - Appearance Dysmorphic Features: No Hygiene: Normal Grooming: Fairly Well Kept - Behavior Psychomotor Activities: Abnormal-Decreased Exhibits Abnormal Movement: No - Attitude and Relatedness Attitude and Relatedness: Cooperative Eye Contact: Fair - Speech Quality: Unpressured Latencies: Normal Quantity: Appropriate - Mood Patient's Decription of Mood: "Sad" - Affect Observed Affect: Tearful Affect Consistent with: Dysphoria - Thought Process Patient's Thought Process: Goal Directed Thought Content: Yes Passive Wish, No Suicidal Planning, No Homicidal Ideation, No Paranoid Ideation - Sensorium Experiencing Hallucinations: No, Sensorium is Clear Type of Hallucinations: Visual: No, Auditory: No, Command: No - Level of Consciousness Level of Consciousness: Alert Orientation: Yes Intact, Yes Orientated to Time, Yes Orientated to Place, Yes Orientated to Person - Impulse Control Impulse Control: Tenuous - Insight and Judgement Insight and Judgement: Fair - Group Participation Particating in Group Activities: Yes - Medication Management Medication Management Adherence: Yes Assessment - Assessment Clinical Impression: 72 year old white male during the anniversary of his wifes experiences remains with feelings of hopelessness and depression. He did not have nightmares overnight and still is tearful and feels hopeless. Plan - Plan Treatment Plan: Name: KRISTINE L JOE Birthdate: 1945 [id number] # Justification for Admission: Patient is a danger to himself. # Voluntary admission. The patient continues to require inpatient admission at this time to assure safety, receive treatment and work toward stabilization. #Continue Gabapentin 300mg daily for pain #Continue Effexor to 187.5mg PO daily for depression #Continue remeron 30mg qhs for sleep . # Continue Prazosin 1mg qhs for nightmares #Continue Hydroxyzine PRN for anxiety #Continue zofran 4mg Q12H PRN for nausea #Start loperamide 2mg PO PRN Q12H for loose stool #Continue Nicotine replacement treatment for nicotine use disorder. Q15 minute observation. Management of medical issues by hospitalist consult team. Dietary consult. Goals to include to decrease depressive symptoms. To find social resources that provide behavioral activation. Continued Medication Management: Continue Outpt Medication Medications: Current Medications Acetaminophen (Tylenol Tab*) 650 mg PO Q4H PRN PRN Reason: for pain; or Temp >101 F Al Hydrox/Mg Hydrox/Simethicone (Maalox Plus*) 30 ml PO Q4H PRN PRN Reason: INDIGESTION Amlodipine Besylate (Norvasc Tab*) 5 mg PO DAILY [facility] Last Admin: 06/02/18 08:54 Dose: 5 mg Aspirin (Aspirin Ec Tab*) 81 mg PO DAILY [facility] Last Admin: 06/02/18 08:54 Dose: 81 mg Enalapril Maleate (Vasotec Tab*) 40 mg PO DAILY [facility] Last Admin: 06/02/18 09:04 Dose: 40 mg Gabapentin (Neurontin Cap(*)) 300 mg PO DAILY [facility] Last Admin: 06/02/18 08:54 Dose: 300 mg Hydroxyzine HCl (Atarax Tab*) 50 mg PO Q6H PRN PRN Reason: ANXIETY Last Admin: 06/01/18 16:37 Dose: 50 mg Levothyroxine Sodium (Synthroid Tab*) 100 mcg PO 0600 [facility] Last Admin: 06/02/18 06:45 Dose: 100 mcg Liothyronine Sodium (Cytomel Tab*) 25 mcg PO DAILY [facility] Last Admin: 06/02/18 09:04 Dose: 25 mcg Mirtazapine (Remeron Tab*) 30 mg PO BEDTIME [facility] Last Admin: 06/01/18 22:18 Dose: 30 mg Nicotine (Nicotine Inhaler*) 10 mg INH Q2H PRN PRN Reason: CRAVING Last Admin: 06/02/18 08:57 Dose: 10 mg Nicotine Polacrilex (Nicotine Gum*) 2 mg PO Q2H PRN PRN Reason: CRAVING Ondansetron HCl (Zofran Tab*) 4 mg PO Q12H PRN PRN Reason: NAUSEA Pantoprazole Sodium (Protonix Tab*) 40 mg PO DAILY [facility] Last Admin: 06/02/18 08:54 Dose: 40 mg Pharmacy Profile Note (Lidocaine Patch Remove*) 1 note N/A 2100 [facility] Last Admin: 06/01/18 22:18 Dose: 1 note Prazosin HCl (Minipress Cap*) 1 mg PO QPM [facility] Last Admin: 06/01/18 22:18 Dose: 1 mg Venlafaxine HCl (Effexor Xr Cap*) 150 mg PO DAILY [facility] Last Admin: 06/02/18 08:53 Dose: 150 mg Venlafaxine HCl (Effexor Xr Cap*) 37.5 mg PO DAILY [facility] Last Admin: 06/02/18 08:54 Dose: 37.5 mg - Discharge Plan Discharge Plan: Inpatient Hospitalization [facility]
[2018-06-02] MEDS ORDERED: Loperamide CAP* 2 MG PO PRN (11:08)
--- NOTE | 2018-06-02 17:29 | PN ---
Subjective Date of Service: 06/02/18 Interval History: Patient evaluated in common area of MHU as patient requested. Reports chest/epigastric pain is less severe and less frequent today. Reports he has only had on episode of pain today versus 3 episodes yesterday. No aggrivated or alleviating factors. When discussed food and it's association with pain, patient reports he has had a decrease in intake for 3 to 4 wks as it did not "feel good" to eat. Unable to identify if it was a physical or emotional response. Either way, he does mention he has also lost some weight in the past few weeks. In addition, he has never had recommended colonoscopy. Denies sob, palpitations, weakness, dizziness, nausea, vomiting, fever, chills. Family History: Unchanged from Admission Social History: Unchanged from Admission Past Medical History: Unchanged from Admission Objective Active Medications: Acetaminophen (Tylenol Tab*) 650 mg PO Q4H PRN PRN Reason: for pain; or Temp >101 F Al Hydrox/Mg Hydrox/Simethicone (Maalox Plus*) 30 ml PO Q4H PRN PRN Reason: INDIGESTION Amlodipine Besylate (Norvasc Tab*) 5 mg PO DAILY [facility] Last Admin: 06/02/18 08:54 Dose: 5 mg Aspirin (Aspirin Ec Tab*) 81 mg PO DAILY [facility] Last Admin: 06/02/18 08:54 Dose: 81 mg Enalapril Maleate (Vasotec Tab*) 40 mg PO DAILY [facility] Last Admin: 06/02/18 09:04 Dose: 40 mg Gabapentin (Neurontin Cap(*)) 300 mg PO DAILY [facility] Last Admin: 06/02/18 08:54 Dose: 300 mg Hydroxyzine HCl (Atarax Tab*) 50 mg PO Q6H PRN PRN Reason: ANXIETY Last Admin: 06/01/18 16:37 Dose: 50 mg Levothyroxine Sodium (Synthroid Tab*) 100 mcg PO 0600 [facility] Last Admin: 06/02/18 06:45 Dose: 100 mcg Liothyronine Sodium (Cytomel Tab*) 25 mcg PO DAILY [facility] Last Admin: 06/02/18 09:04 Dose: 25 mcg Loperamide HCl (Imodium Cap*) 2 mg PO BID PRN PRN Reason: DIARRHEA Mirtazapine (Remeron Tab*) 30 mg PO BEDTIME [facility] Last Admin: 06/01/18 22:18 Dose: 30 mg Nicotine (Nicotine Inhaler*) 10 mg INH Q2H PRN PRN Reason: CRAVING Last Admin: 06/02/18 11:02 Dose: 10 mg Nicotine Polacrilex (Nicotine Gum*) 2 mg PO Q2H PRN PRN Reason: CRAVING Ondansetron HCl (Zofran Tab*) 4 mg PO Q12H PRN PRN Reason: NAUSEA Pantoprazole Sodium (Protonix Tab*) 40 mg PO DAILY [facility] Last Admin: 06/02/18 08:54 Dose: 40 mg Pharmacy Profile Note (Lidocaine Patch Remove*) 1 note N/A 2100 [facility] Last Admin: 06/01/18 22:18 Dose: 1 note Prazosin HCl (Minipress Cap*) 1 mg PO QPM [facility] Last Admin: 06/01/18 22:18 Dose: 1 mg Venlafaxine HCl (Effexor Xr Cap*) 150 mg PO DAILY [facility] Last Admin: 06/02/18 08:53 Dose: 150 mg Venlafaxine HCl (Effexor Xr Cap*) 37.5 mg PO DAILY [facility] Last Admin: 06/02/18 08:54 Dose: 37.5 mg Vital Signs - 8 hr 06/02/18 06/02/18 11:23 11:56 Respiratory 16 16 Rate Oxygen Devices in Use Now: None Appearance: Comfortable, NAD Eyes: No Scleral Icterus Ears/Nose/Mouth/Throat: Clear Oropharnyx, Mucous Membranes Moist Neck: NL Appearance and Movements; NL JVP Respiratory: Symmetrical Chest Expansion and Respiratory Effort, Clear to Auscultation Cardiovascular: NL Sounds; No Murmurs; No JVD, RRR, No Edema Abdominal: - - Abd soft and not distended. Mildly tender to palpitation in epigastric region Lymphatic: No Cervical Adenopathy Extremities: No Edema Skin: No Rash or Ulcers Neurological: Alert and Oriented x 3 Nutrition: Taking PO's, - - Although reports decrease in intake Result Diagrams: 05/30/18 09:38 05/30/18 09:38 Microbiology and Other Data: Microbiology 05/30/18 09:52 Urine Culture - Final Urine No Growth (<1,000 CFU/mL) Assess/Plan/Problems-Billing Assessment: Mr. Reynaga is a 72 yo M with PMH of multiple psychological disorders including anxiety, HTN, hypothyroidism, chronic pain, and diabetes; who presented to the ED with suicidal ideations and was admitted to [facility]. Hospital Medicine is consulting for evaluation of chest pain and co-medical management. - Patient Problems (1) Chest pain Comment: - Atypical; low concern for cardiac etiology, but he has significant risk factors (BOUBACAR score is 3) - CTA negative for PE - Trops negative x3, no EKG changes - Wide differential including GI etiology (GERD vs gallbladder disease), anxiety , musculoskeletal - Had Lexiscan and resting portion of stress test which revealed low risk - Cont Pantoprazole (2) Epigastric abdominal pain Comment: - Patient is improving - Cont PPI - Due to tenderness, if he does not continue to improve or worsens again it might be benefical to get an ultrasound of his RUQ - Due to patient report of decrease in recent intake, weight loss, and current symptoms, he would also benefit from follow up with GI as outpatient and I have discussed this with him (3) Hyperlipidemia Comment: - Lipid panel shows good control, but LDL is low at 7 - Hold statin for now; he can likely resume this at d/c, but should f/u with his PCP to determine further management (4) Hypertension Comment: - Normotensive, SBP 130-140s - Continue amlodipine, enalapril (5) Mental health disorder Comment: - Including depression, anxiety, PTSD, bipolar - Management per Psych (6) Prediabetes Comment: - A1c 6.1% - Recommend diet and exercise; no medication indicated at this time (7) Suicidal ideations Comment: - Management per Psych (8) Hypothyroidism Comment: - Continue levothyroxine (9) Full code status Comment: Status and Disposition: Disposition per Psych. Attending: Jyothi Condon
[2018-06-02] MEDS: Prazosin CAP* 1 MG PO SCH (17:36)
[2018-06-02] MEDS: Mirtazapine TAB* 15 MG PO SCH (21:06)
[2018-06-02] MEDS: Lidocaine Patch REMOVE* 1 NOTE MISC SCH (22:01)
[2018-06-03] MEDS: Nicotine Inhaler* 10 MG AMP INH PRN ×4 (06:37→16:46)
[2018-06-03] MEDS: Pantoprazole TAB * 40 MG TAB PO SCH (09:05)
[2018-06-03] MEDS: Venlafaxine EXT RELEASE CAP* 37.5 MG PO SCH (09:05)
[2018-06-03] MEDS: Venlafaxine EXT RELEASE CAP* 75 MG PO SCH (09:05)
[2018-06-03] MEDS: amLODIPine TAB* 5 MG PO SCH (09:05)
[2018-06-03] MEDS: Enalapril TAB* 20 MG PO SCH (09:06)
[2018-06-03] MEDS: Gabapentin CAP(*) 300 MG PO SCH (09:06)
[2018-06-03] MEDS: Levothyroxine TAB* 100 MCG TAB PO SCH (09:06)
[2018-06-03] MEDS: Liothyronine TAB* 25 MCG PO SCH (09:06)
[2018-06-03] MEDS: Aspirin EC TAB* 81 MG TAB.EC PO SCH (09:06)
--- NOTE | 2018-06-03 15:18 | PN ---
Subjective - Subjective Date of Service: 06/03/18 Service Type: 05212 Hosp care 25 min moderate complexity Subjective: Jaguar is seen in coverage for Dr. Brice. The patient is known to me from a previous admission and he is examined along with CECILIO Barker in the room so that we can mutually confront him about his lack of participation on the unit thus far this hospitalization. Staff reports indicate that Jaguar is not going to groups and spending most of his day laying in bed. "My brain just isn't working. Two years ago I came in here and you guys straightened me out. I'm much worse now." On exam he is pessimistic and self-defeating. He apparently blames himself for the of his 8 years ago and has not sufficiently grieved or gotten over it. "I should have seen the signs. She of a heart attack. I could have gotten her some help." He is tolerating his medications well and denies further symptoms of opioid withdrawal, other than some loose stools. He continues to be negative about the future. "It's one thing if you' re in your 50s or 60s. Then you can start over still...but in your 70s?" He does not want us to contact his daughter, Krysta, because he doesn't want to trouble her, but clearly resents her moving out of [place] with his two granddaughters one year ago. He continues to have passive SI. Objective - Appearance Appearance: Obese Dysmorphic Features: No Hygiene: Normal Grooming: Fairly Well Kept - Behavior Psychomotor Activities: Abnormal-Decreased Exhibits Abnormal Movement: No - Attitude and Relatedness Attitude and Relatedness: Cooperative Eye Contact: Poor - Speech Quality: Unpressured Latencies: Normal Quantity: Terse - Mood Patient's Decription of Mood: "Sad" - Affect Observed Affect: Constricted Affect Consistent with: Dysphoria - Thought Process Patient's Thought Process: Coherent Thought Content: Yes Passive Wish, No Suicidal Planning, No Homicidal Ideation, No Paranoid Ideation - Sensorium Experiencing Hallucinations: No, Sensorium is Clear Type of Hallucinations: Visual: No, Auditory: No, Command: No - Level of Consciousness Level of Consciousness: Alert Orientation: Yes Intact, Yes Orientated to Time, Yes Orientated to Place, Yes Orientated to Person - Impulse Control Impulse Control: Tenuous - Insight and Judgement Insight and Judgement: Fair - Group Participation Particating in Group Activities: No - Medication Management Medication Management Adherence: Yes Assessment - Assessment Merits Inpatient Hospitalization: For Immediate Safety, For Stabilization Inpatient DSM-V Dx: F33.9 Clinical Impression: 72 year old white male during the anniversary of his wifes experiences remains with feelings of hopelessness and depression. He did not have nightmares overnight and still is tearful and feels hopeless. BSU: Problem List - Patient Problems (1) Major depression, recurrent Current Visit: No Status: Acute Code(s): F33.9 - MAJOR DEPRESSIVE DISORDER, RECURRENT, UNSPECIFIED SNOMED Code(s): 44798120 Plan - Plan Treatment Plan: Name: JAGUAR DIAZ Birthdate: 1945 [id number] # Justification for Admission: Patient is a danger to himself. # Voluntary admission. The patient continues to require inpatient admission at this time to assure safety, receive treatment and work toward stabilization. #Continue Gabapentin 300mg daily for pain #Continue Effexor to 187.5mg PO daily for depression #Continue remeron 30mg qhs for sleep . # Continue Prazosin 1mg qhs for nightmares #Continue Hydroxyzine PRN for anxiety #Continue zofran 4mg Q12H PRN for nausea #Start loperamide 2mg PO PRN Q12H for loose stool #Continue Nicotine replacement treatment for nicotine use disorder. Q15 minute observation. Management of medical issues by hospitalist consult team. Dietary consult. Goals to include to decrease depressive symptoms. To find social resources that provide behavioral activation. Continued Medication Management: Different Medication Medications: Current Medications Acetaminophen (Tylenol Tab*) 650 mg PO Q4H PRN PRN Reason: for pain; or Temp >101 F Al Hydrox/Mg Hydrox/Simethicone (Maalox Plus*) 30 ml PO Q4H PRN PRN Reason: INDIGESTION Amlodipine Besylate (Norvasc Tab*) 5 mg PO DAILY [facility] Last Admin: 06/03/18 09:05 Dose: 5 mg Aspirin (Aspirin Ec Tab*) 81 mg PO DAILY [facility] Last Admin: 06/03/18 09:06 Dose: 81 mg Enalapril Maleate (Vasotec Tab*) 40 mg PO DAILY [facility] Last Admin: 06/03/18 09:06 Dose: 40 mg Gabapentin (Neurontin Cap(*)) 300 mg PO DAILY [facility] Last Admin: 06/03/18 09:06 Dose: 300 mg Hydroxyzine HCl (Atarax Tab*) 50 mg PO Q6H PRN PRN Reason: ANXIETY Last Admin: 06/01/18 16:37 Dose: 50 mg Levothyroxine Sodium (Synthroid Tab*) 100 mcg PO 0600 [facility] Last Admin: 06/03/18 09:06 Dose: 100 mcg Liothyronine Sodium (Cytomel Tab*) 25 mcg PO DAILY [facility] Last Admin: 06/03/18 09:06 Dose: 25 mcg Loperamide HCl (Imodium Cap*) 2 mg PO BID PRN PRN Reason: DIARRHEA Mirtazapine (Remeron Tab*) 30 mg PO BEDTIME [facility] Last Admin: 06/02/18 21:06 Dose: 30 mg Nicotine (Nicotine Inhaler*) 10 mg INH Q2H PRN PRN Reason: CRAVING Last Admin: 06/03/18 12:40 Dose: 10 mg Nicotine Polacrilex (Nicotine Gum*) 2 mg PO Q2H PRN PRN Reason: CRAVING Ondansetron HCl (Zofran Tab*) 4 mg PO Q12H PRN PRN Reason: NAUSEA Last Admin: 06/03/18 06:39 Dose: 4 mg Pantoprazole Sodium (Protonix Tab*) 40 mg PO DAILY [facility] Last Admin: 06/03/18 09:05 Dose: 40 mg Pharmacy Profile Note (Lidocaine Patch Remove*) 1 note N/A 2100 [facility] Last Admin: 06/02/18 22:01 Dose: Not Given Prazosin HCl (Minipress Cap*) 1 mg PO QPM [facility] Last Admin: 06/02/18 17:36 Dose: 1 mg Venlafaxine HCl (Effexor Xr Cap*) 150 mg PO DAILY [facility] Last Admin: 06/03/18 09:05 Dose: 150 mg Venlafaxine HCl (Effexor Xr Cap*) 37.5 mg PO DAILY [facility] Last Admin: 06/03/18 09:05 Dose: 37.5 mg - Discharge Plan Discharge Plan: Inpatient Hospitalization Lab Results - Lab Results Lab Results: 05/31/18 05/31/18 05/31/18 17:30 17:30 21:16 POC Glucose (mg/dL) Hemoglobin A1c 6.1 H Troponin I 0.00 0.00 Triglycerides Cholesterol LDL Cholesterol HDL Cholesterol 06/01/18 06/01/18 06/01/18 04:00 04:07 07:51 POC Glucose (mg/dL) 125 H 127 H Hemoglobin A1c Troponin I 0.00 Triglycerides 181 Cholesterol 80 LDL Cholesterol 7 HDL Cholesterol 36.5
--- NOTE | 2018-06-03 17:13 | PN ---
Subjective Date of Service: 06/03/18 Interval History: Assessed in MHU common area per patient's request. Reports improvement in epigastric/chest pain. Reports only one "slight" episode today after eating fish. Reports increase in appetite. Denies sob, palpitations , dizziness, nausea, vomiting, fever, chills. Family History: Unchanged from Admission Social History: Unchanged from Admission Past Medical History: Unchanged from Admission Objective Active Medications: Acetaminophen (Tylenol Tab*) 650 mg PO Q4H PRN PRN Reason: for pain; or Temp >101 F Al Hydrox/Mg Hydrox/Simethicone (Maalox Plus*) 30 ml PO Q4H PRN PRN Reason: INDIGESTION Amlodipine Besylate (Norvasc Tab*) 5 mg PO DAILY [facility] Last Admin: 06/03/18 09:05 Dose: 5 mg Aspirin (Aspirin Ec Tab*) 81 mg PO DAILY [facility] Last Admin: 06/03/18 09:06 Dose: 81 mg Enalapril Maleate (Vasotec Tab*) 40 mg PO DAILY [facility] Last Admin: 06/03/18 09:06 Dose: 40 mg Gabapentin (Neurontin Cap(*)) 300 mg PO DAILY [facility] Last Admin: 06/03/18 09:06 Dose: 300 mg Hydroxyzine HCl (Atarax Tab*) 50 mg PO Q6H PRN PRN Reason: ANXIETY Last Admin: 06/01/18 16:37 Dose: 50 mg Levothyroxine Sodium (Synthroid Tab*) 100 mcg PO 0600 [facility] Last Admin: 06/03/18 09:06 Dose: 100 mcg Liothyronine Sodium (Cytomel Tab*) 25 mcg PO DAILY [facility] Last Admin: 06/03/18 09:06 Dose: 25 mcg Loperamide HCl (Imodium Cap*) 2 mg PO BID PRN PRN Reason: DIARRHEA Mirtazapine (Remeron Tab*) 30 mg PO BEDTIME [facility] Last Admin: 06/02/18 21:06 Dose: 30 mg Nicotine (Nicotine Inhaler*) 10 mg INH Q2H PRN PRN Reason: CRAVING Last Admin: 06/03/18 16:46 Dose: 10 mg Nicotine Polacrilex (Nicotine Gum*) 2 mg PO Q2H PRN PRN Reason: CRAVING Ondansetron HCl (Zofran Tab*) 4 mg PO Q12H PRN PRN Reason: NAUSEA Last Admin: 06/03/18 06:39 Dose: 4 mg Pantoprazole Sodium (Protonix Tab*) 40 mg PO DAILY [facility] Last Admin: 06/03/18 09:05 Dose: 40 mg Pharmacy Profile Note (Lidocaine Patch Remove*) 1 note N/A 2100 [facility] Last Admin: 06/02/18 22:01 Dose: Not Given Prazosin HCl (Minipress Cap*) 1 mg PO QPM [facility] Last Admin: 06/02/18 17:36 Dose: 1 mg Venlafaxine HCl (Effexor Xr Cap*) 150 mg PO DAILY [facility] Last Admin: 06/03/18 09:05 Dose: 150 mg Venlafaxine HCl (Effexor Xr Cap*) 37.5 mg PO DAILY [facility] Last Admin: 06/03/18 09:05 Dose: 37.5 mg Vital Signs - 8 hr 06/03/18 12:41 Respiratory 16 Rate Oxygen Devices in Use Now: None Appearance: Comfortable, NAD Eyes: No Scleral Icterus Ears/Nose/Mouth/Throat: Mucous Membranes Moist Neck: NL Appearance and Movements; NL JVP Respiratory: Symmetrical Chest Expansion and Respiratory Effort, Clear to Auscultation Cardiovascular: NL Sounds; No Murmurs; No JVD, No Edema Abdominal: - - BS x 4. Not distended. Reports mild tenderness to palpation of epigastric region Lymphatic: No Cervical Adenopathy Extremities: No Clubbing, Cyanosis Skin: No Rash or Ulcers Neurological: Alert and Oriented x 3 Nutrition: Taking PO's Result Diagrams: 05/30/18 09:38 05/30/18 09:38 Microbiology and Other Data: Microbiology 05/30/18 09:52 Urine Culture - Final Urine No Growth (<1,000 CFU/mL) Assess/Plan/Problems-Billing Assessment: Mr. Reynaga is a 72 yo M with PMH of multiple psychological disorders including anxiety, HTN, hypothyroidism, chronic pain, and diabetes; who presented to the ED with suicidal ideations and was admitted to MHU. Hospital Medicine is consulting for evaluation of chest pain and co-medical management. - Patient Problems (1) Chest pain Comment: - Atypical; low concern for cardiac etiology, but he has significant risk factors (BOUBACAR score is 3) - CTA negative for PE - Trops negative x3, no EKG changes - Wide differential including GI etiology (GERD vs gallbladder disease), anxiety , musculoskeletal - Had Lexiscan and resting portion of stress test which revealed low risk - Cont Pantoprazole (2) Epigastric abdominal pain Comment: - Patient is improving - Cont PPI for 4 wks after discharge and close follow up with primary care - Would also benefit from GI evaluation as outpatient. - Would also benefit from avoiding trigger foods. (3) Hyperlipidemia Comment: - Lipid panel shows good control, but LDL is low at 7 - Hold statin for now; he can likely resume this at d/c, but should f/u with his PCP to determine further management (4) Hypertension Comment: - Normotensive, SBP 130-140s - Continue amlodipine, enalapril (5) Mental health disorder Comment: - Including depression, anxiety, PTSD, bipolar - Management per Psych (6) Prediabetes Comment: - A1c 6.1% - Recommend diet and exercise; no medication indicated at this time (7) Suicidal ideations Comment: - Management per Psych (8) Hypothyroidism Comment: - Continue levothyroxine (9) Full code status Comment: Status and Disposition: Thank you for allowing us to consult on this patient. We will be available for further consultation as needed.
[2018-06-03] MEDS: Prazosin CAP* 1 MG PO SCH (17:57)
[2018-06-03] MEDS: Mirtazapine TAB* 15 MG PO SCH (21:10)
[2018-06-03] MEDS: Lidocaine Patch REMOVE* 1 NOTE MISC SCH (21:11)
[2018-06-04] MEDS: Levothyroxine TAB* 100 MCG TAB PO SCH (05:52)
[2018-06-04] MEDS: Nicotine Inhaler* 10 MG AMP INH PRN ×5 (06:00→17:35)
[2018-06-04] MEDS: Venlafaxine EXT RELEASE CAP* 37.5 MG PO SCH (08:46)
[2018-06-04] MEDS: Aspirin EC TAB* 81 MG TAB.EC PO SCH (08:46)
[2018-06-04] MEDS: amLODIPine TAB* 5 MG PO SCH (08:46)
[2018-06-04] MEDS: Liothyronine TAB* 25 MCG PO SCH (08:46)
[2018-06-04] MEDS: Enalapril TAB* 20 MG PO SCH (08:46)
[2018-06-04] MEDS: Gabapentin CAP(*) 300 MG PO SCH (08:47)
[2018-06-04] MEDS: Venlafaxine EXT RELEASE CAP* 75 MG PO SCH (08:47)
[2018-06-04] MEDS: Pantoprazole TAB * 40 MG TAB PO SCH (08:47)
[2018-06-04] MEDS ORDERED: Mouth Piece, Nicotine* 1 EACH CARTRIDGE ONE (08:59)
[2018-06-04] MEDS: Mouth Piece, Nicotine* 1 EACH CARTRIDGE ONE (08:59)
[2018-06-04] MEDS: Prazosin CAP* 1 MG PO SCH (17:26)
[2018-06-04] MEDS: Lidocaine Patch REMOVE* 1 NOTE MISC SCH (20:59)
[2018-06-04] MEDS: Mirtazapine TAB* 15 MG PO SCH (21:00)
[2018-06-04] MEDS: hydrOXYzine HCL TAB* 50 MG PO PRN (21:01)
[2018-06-05] MEDS: Levothyroxine TAB* 100 MCG TAB PO SCH (07:11)
[2018-06-05] MEDS: Nicotine Inhaler* 10 MG AMP INH PRN ×2 (07:12→12:46)
[2018-06-05] MEDS: Gabapentin CAP(*) 300 MG PO SCH (08:40)
[2018-06-05] MEDS: Aspirin EC TAB* 81 MG TAB.EC PO SCH (08:40)
[2018-06-05] MEDS: amLODIPine TAB* 5 MG PO SCH (08:40)
[2018-06-05] MEDS: Venlafaxine EXT RELEASE CAP* 37.5 MG PO SCH (08:40)
[2018-06-05] MEDS: Pantoprazole TAB * 40 MG TAB PO SCH (08:40)
[2018-06-05] MEDS: Venlafaxine EXT RELEASE CAP* 75 MG PO SCH (08:40)
[2018-06-05] MEDS: Enalapril TAB* 20 MG PO SCH (08:41)
[2018-06-05] MEDS: Liothyronine TAB* 25 MCG PO SCH (08:41)
[2018-06-05] MEDS: hydrOXYzine HCL TAB* 50 MG PO PRN ×2 (09:45→20:01)
--- NOTE | 2018-06-05 16:50 | PN ---
Subjective - Subjective Date of Service: 06/05/18 Subjective: Jaguar reports still feeling depressed but thinking less often about suicide. Sleep has improved, appetite is ok but has loose stools after eating. He denies side effects from his prescribed meds. Per staff, he remains adherent to unit's routines. Objective - Appearance Appearance: Healthy Appearing Dysmorphic Features: No Hygiene: Normal Grooming: Well Kept - Behavior Psychomotor Activities: Normal Exhibits Abnormal Movement: No - Attitude and Relatedness Attitude and Relatedness: Cooperative Eye Contact: Fair - Speech Quality: Unpressured Latencies: Normal Quantity: Appropriate - Mood Patient's Decription of Mood: "Sad" - Affect Observed Affect: Non-labile Affect Consistent with: Dysphoria - Thought Process Patient's Thought Process: Coherent, Goal Directed Thought Content: No Passive Wish, No Suicidal Planning, No Homicidal Ideation, No Paranoid Ideation - Sensorium Experiencing Hallucinations: No, Sensorium is Clear - Level of Consciousness Level of Consciousness: Alert Orientation: Yes Intact - Impulse Control Impulse Control: Intact - Insight and Judgement Insight and Judgement: Fair - Group Participation Particating in Group Activities: Yes - Medication Management Medication Management Adherence: Yes Assessment - Assessment Merits Inpatient Hospitalization: Consolidate Improvements, For Discharge Planning Inpatient DSM-V Dx: F33.9 Clinical Impression: 72 year old white male during the anniversary of his wifes experiences remains with feelings of hopelessness and depression. He did not have nightmares overnight and still is tearful and feels hopeless. He is stabilizing in this structured setting. Plan - Plan Treatment Plan: Name: JAGUAR DIAZ Birthdate: 1945 [id number] # Justification for Admission: Patient is a danger to himself. # Voluntary admission. The patient continues to require inpatient admission at this time to assure safety, receive treatment and work toward stabilization. #Continue Gabapentin 300mg daily for pain #Continue Effexor to 187.5mg PO daily for depression #Continue remeron 30mg qhs for sleep . # Continue Prazosin 1mg qhs for nightmares #Continue Hydroxyzine PRN for anxiety #Continue zofran 4mg Q12H PRN for nausea #Start loperamide 2mg PO PRN Q12H for loose stool #Continue Nicotine replacement treatment for nicotine use disorder. Q15 minute observation. Management of medical issues by hospitalist consult team. Dietary consult. Goals to include to decrease depressive symptoms. To find social resources that provide behavioral activation. Medications: Current Medications Acetaminophen (Tylenol Tab*) 650 mg PO Q4H PRN PRN Reason: for pain; or Temp >101 F Al Hydrox/Mg Hydrox/Simethicone (Maalox Plus*) 30 ml PO Q4H PRN PRN Reason: INDIGESTION Last Admin: 06/05/18 09:45 Dose: 30 ml Amlodipine Besylate (Norvasc Tab*) 5 mg PO DAILY [facility] Last Admin: 06/05/18 08:40 Dose: 5 mg Aspirin (Aspirin Ec Tab*) 81 mg PO DAILY [facility] Last Admin: 06/05/18 08:40 Dose: 81 mg Enalapril Maleate (Vasotec Tab*) 40 mg PO DAILY [facility] Last Admin: 06/05/18 08:41 Dose: 40 mg Gabapentin (Neurontin Cap(*)) 300 mg PO DAILY [facility] Last Admin: 06/05/18 08:40 Dose: 300 mg Hydroxyzine HCl (Atarax Tab*) 50 mg PO Q6H PRN PRN Reason: ANXIETY Last Admin: 06/05/18 09:45 Dose: 50 mg Levothyroxine Sodium (Synthroid Tab*) 100 mcg PO 0600 [facility] Last Admin: 06/05/18 07:11 Dose: 100 mcg Liothyronine Sodium (Cytomel Tab*) 25 mcg PO DAILY [facility] Last Admin: 06/05/18 08:41 Dose: 25 mcg Loperamide HCl (Imodium Cap*) 2 mg PO BID PRN PRN Reason: DIARRHEA Mirtazapine (Remeron Tab*) 30 mg PO BEDTIME [facility] Last Admin: 06/04/18 21:00 Dose: 30 mg Nicotine (Nicotine Inhaler*) 10 mg INH Q2H PRN PRN Reason: CRAVING Last Admin: 06/05/18 12:46 Dose: 10 mg Nicotine Polacrilex (Nicotine Gum*) 2 mg PO Q2H PRN PRN Reason: CRAVING Ondansetron HCl (Zofran Tab*) 4 mg PO Q12H PRN PRN Reason: NAUSEA Last Admin: 06/03/18 06:39 Dose: 4 mg Pantoprazole Sodium (Protonix Tab*) 40 mg PO DAILY [facility] Last Admin: 06/05/18 08:40 Dose: 40 mg Pharmacy Profile Note (Lidocaine Patch Remove*) 1 note N/A 2100 [facility] Last Admin: 06/04/18 20:59 Dose: Not Given Prazosin HCl (Minipress Cap*) 1 mg PO QPM [facility] Last Admin: 06/04/18 17:26 Dose: 1 mg Venlafaxine HCl (Effexor Xr Cap*) 150 mg PO DAILY [facility] Last Admin: 06/05/18 08:40 Dose: 150 mg Venlafaxine HCl (Effexor Xr Cap*) 37.5 mg PO DAILY [facility] Last Admin: 06/05/18 08:40 Dose: 37.5 mg - Discharge Plan Discharge Plan: Outpatient Follow Up Outpatient Program: [facility]
[2018-06-05] MEDS: Prazosin CAP* 1 MG PO SCH (17:23)
[2018-06-05] MEDS: Mirtazapine TAB* 15 MG PO SCH (20:00)
[2018-06-05] MEDS: Lidocaine Patch REMOVE* 1 NOTE MISC SCH (20:02)
[2018-06-06] MEDS: Levothyroxine TAB* 100 MCG TAB PO SCH (05:29)
[2018-06-06] MEDS ORDERED: Gabapentin CAP(*) 300 MG PO SCH (09:00)
[2018-06-06] MEDS: Aspirin EC TAB* 81 MG TAB.EC PO SCH (09:18)
[2018-06-06] MEDS: amLODIPine TAB* 5 MG PO SCH (09:19)
[2018-06-06] MEDS: Venlafaxine EXT RELEASE CAP* 75 MG PO SCH (09:19)
[2018-06-06] MEDS: Pantoprazole TAB * 40 MG TAB PO SCH (09:19)
[2018-06-06] MEDS: Venlafaxine EXT RELEASE CAP* 37.5 MG PO SCH (09:19)
[2018-06-06] MEDS: Enalapril TAB* 20 MG PO SCH (09:20)
[2018-06-06] MEDS: Liothyronine TAB* 25 MCG PO SCH (09:21)
[2018-06-06] MEDS: Nicotine Inhaler* 10 MG AMP INH PRN ×3 (09:22→17:31)
[2018-06-06] MEDS: Gabapentin CAP(*) 300 MG PO SCH (09:23)
--- NOTE | 2018-06-06 10:39 | PN ---
Subjective - Subjective Date of Service: 06/06/18 Service Type: 81660 Hosp care 25 min moderate complexity Subjective: Nursing Report: Patient was visible on unit , no beahvioral si Not Attending group. CC: "I do feel better Patient was seen and evaluated by newswriter today. He reported that he has been thinking how he can cope with negative thoughts and feels that he is not as depressed as he once was. The patient reported that he felt chest pain overnight and was evaluated by the medical team. He reported no longer having chest pain. He reported not having nightmares overnight. He said he doesnt want to turn to pain pills when he leaves. Per nursing no behavioral issues. He did not endorse suicidal plan and said that he doesnt feel as suicidal as he once did. He denied homicidal ideation intent or plan. He denied auditory and or visual hallucinations. He felt safe on the unit. He plans to attend group today. He reported improved appetite and sleep. Objective - Appearance Dysmorphic Features: No Hygiene: Normal Grooming: Fairly Well Kept - Behavior Psychomotor Activities: Normal Exhibits Abnormal Movement: No - Attitude and Relatedness Attitude and Relatedness: Cooperative Eye Contact: Fair - Speech Quality: Unpressured Latencies: Normal Quantity: Appropriate - Mood Patient's Decription of Mood: "Okay" - Affect Observed Affect: Non-labile Affect Consistent with: Dysphoria - Thought Process Patient's Thought Process: Goal Directed Thought Content: Yes Passive Wish, No Suicidal Planning, No Homicidal Ideation, No Paranoid Ideation - Sensorium Experiencing Hallucinations: No, Sensorium is Clear Type of Hallucinations: Visual: No, Auditory: No, Command: No - Level of Consciousness Level of Consciousness: Alert Orientation: Yes Intact, Yes Orientated to Time, Yes Orientated to Place - Impulse Control Impulse Control: Tenuous - Insight and Judgement Insight and Judgement: Fair - Group Participation Particating in Group Activities: No - Medication Management Medication Management Adherence: Yes Assessment - Assessment Merits Inpatient Hospitalization: For Immediate Safety Inpatient DSM-V Dx: F33.9 Clinical Impression: 72 year old white male during the anniversary of his wifes experiences remains with feelings of hopelessness and depression. He did not have nightmares overnight and his appetite and sleep have shown improvement. Plan - Plan Treatment Plan: Name: KRISTINE DIAZ Birthdate: 1945 [id number] # Justification for Admission: Patient is a danger to himself. # Voluntary admission. The patient continues to require inpatient admission at this time to assure safety, receive treatment and work toward stabilization. #Increase Gabapentin to 300mg BID for pain #Continue Effexor to 187.5mg PO daily for depression #Continue remeron 30mg qhs for sleep . # Continue Prazosin 1mg qhs for nightmares #Continue Hydroxyzine PRN for anxiety #Continue zofran 4mg Q12H PRN for nausea #Start loperamide 2mg PO PRN Q12H for loose stool #Continue Nicotine replacement treatment for nicotine use disorder. Q15 minute observation. Management of medical issues by hospitalist consult team . Goals to include to decrease depressive symptoms. Follow up with [facility] at [facility]. Discharge social resources include activities with [employer] and office of the aging. Continued Medication Management: Start Medication Medications: Current Medications Acetaminophen (Tylenol Tab*) 650 mg PO Q4H PRN PRN Reason: for pain; or Temp >101 F Al Hydrox/Mg Hydrox/Simethicone (Maalox Plus*) 30 ml PO Q4H PRN PRN Reason: INDIGESTION Last Admin: 06/05/18 09:45 Dose: 30 ml Amlodipine Besylate (Norvasc Tab*) 5 mg PO DAILY [facility] Last Admin: 06/06/18 09:19 Dose: 5 mg Aspirin (Aspirin Ec Tab*) 81 mg PO DAILY [facility] Last Admin: 06/06/18 09:18 Dose: 81 mg Enalapril Maleate (Vasotec Tab*) 40 mg PO DAILY [facility] Last Admin: 06/06/18 09:20 Dose: 40 mg Gabapentin (Neurontin Cap(*)) 600 mg PO DAILY [facility] Last Admin: 06/06/18 09:18 Dose: 600 mg Hydroxyzine HCl (Atarax Tab*) 50 mg PO Q6H PRN PRN Reason: ANXIETY Last Admin: 06/05/18 20:01 Dose: 50 mg Levothyroxine Sodium (Synthroid Tab*) 100 mcg PO 0600 [facility] Last Admin: 06/06/18 05:29 Dose: 100 mcg Liothyronine Sodium (Cytomel Tab*) 25 mcg PO DAILY [facility] Last Admin: 06/06/18 09:21 Dose: 25 mcg Loperamide HCl (Imodium Cap*) 2 mg PO BID PRN PRN Reason: DIARRHEA Mirtazapine (Remeron Tab*) 30 mg PO BEDTIME [facility] Last Admin: 06/05/18 20:00 Dose: 30 mg Nicotine (Nicotine Inhaler*) 10 mg INH Q2H PRN PRN Reason: CRAVING Last Admin: 06/06/18 09:22 Dose: 10 mg Nicotine Polacrilex (Nicotine Gum*) 2 mg PO Q2H PRN PRN Reason: CRAVING Ondansetron HCl (Zofran Tab*) 4 mg PO Q12H PRN PRN Reason: NAUSEA Last Admin: 06/03/18 06:39 Dose: 4 mg Pantoprazole Sodium (Protonix Tab*) 40 mg PO DAILY [facility] Last Admin: 06/06/18 09:19 Dose: 40 mg Pharmacy Profile Note (Lidocaine Patch Remove*) 1 note N/A 2100 [facility] Last Admin: 06/05/18 20:02 Dose: Not Given Prazosin HCl (Minipress Cap*) 1 mg PO QPM [facility] Last Admin: 06/05/18 17:23 Dose: 1 mg Venlafaxine HCl (Effexor Xr Cap*) 150 mg PO DAILY [facility] Last Admin: 06/06/18 09:19 Dose: 150 mg Venlafaxine HCl (Effexor Xr Cap*) 37.5 mg PO DAILY [facility] Last Admin: 06/06/18 09:19 Dose: 37.5 mg - Discharge Plan Discharge Plan: Inpatient Hospitalization [facility]patient Program[facility]
[2018-06-06] MEDS: Prazosin CAP* 1 MG PO SCH (17:31)
[2018-06-06] MEDS: Lidocaine Patch REMOVE* 1 NOTE MISC SCH (22:46)
[2018-06-06] MEDS: Mirtazapine TAB* 15 MG PO SCH (23:30)
[2018-06-07] MEDS: Levothyroxine TAB* 100 MCG TAB PO SCH (06:35)
[2018-06-07] MEDS: Nicotine Inhaler* 10 MG AMP INH PRN ×3 (06:45→16:37)
[2018-06-07] MEDS: Aspirin EC TAB* 81 MG TAB.EC PO SCH (08:51)
[2018-06-07] MEDS: Venlafaxine EXT RELEASE CAP* 37.5 MG PO SCH (08:51)
[2018-06-07] MEDS: Gabapentin CAP(*) 300 MG PO SCH ×2 (08:51→21:39)
[2018-06-07] MEDS: Pantoprazole TAB * 40 MG TAB PO SCH (08:52)
[2018-06-07] MEDS: Venlafaxine EXT RELEASE CAP* 75 MG PO SCH ×2 (08:52→09:58)
[2018-06-07] MEDS: amLODIPine TAB* 5 MG PO SCH (08:52)
[2018-06-07] MEDS: Liothyronine TAB* 25 MCG PO SCH (08:52)
[2018-06-07] MEDS: Enalapril TAB* 20 MG PO SCH (08:52)
--- NOTE | 2018-06-07 11:33 | PN ---
[facility]: Group Therapy Note - Service Type Service Type: 18125 Group Psychotherapy - Cognitive Behavioral Group Therapy ( CBT):Patient attended CBT programming this morning and presented with flat affect that did not vary with discussion. Although responsive to direct prompts to respond to questions, patient did not engage in spontaneous conversation.
--- NOTE | 2018-06-07 16:07 | PN ---
Subjective - Subjective Date of Service: 06/07/18 Service Type: 25055 Hosp care 25 min moderate complexity Subjective: Nursing Report: Patient was visible on unit , no behavioral issues Went to group during the day. Attending group. CC: "I feel better Patient was seen and evaluated by conventional mortgage underwriter today in the common room. He reported that he has been better at coping with having thoughts and feelings of hopelessness. He reported that he went to group yesterday. He reported that he must of been fighting with someone in his dreams because the blankets were off of him when he woke up. Per nursing no behavioral issues. He did not endorse suicidal plan and said that he feels less suicidal today. He reported that he will be ready to go . He denied homicidal ideation intent or plan. He denied auditory and or visual hallucinations. He felt safe on the unit. He reported improved appetite and sleep. He looks forward to seeing Martha his therapist when he is discharged. Objective - Appearance Dysmorphic Features: No Hygiene: Normal Grooming: Fairly Well Kept - Behavior Psychomotor Activities: Normal Exhibits Abnormal Movement: No - Attitude and Relatedness Attitude and Relatedness: Cooperative - Speech Quality: Unpressured Latencies: Normal Quantity: Appropriate - Mood Patient's Decription of Mood: "Fine" - Affect Observed Affect: Non-labile - Thought Process Patient's Thought Process: Goal Directed Thought Content: No Passive Wish, No Suicidal Planning, No Homicidal Ideation, No Paranoid Ideation - Sensorium Experiencing Hallucinations: No, Sensorium is Clear Type of Hallucinations: Visual: No, Auditory: No, Command: No - Level of Consciousness Level of Consciousness: Alert Orientation: Yes Intact, Yes Orientated to Time, Yes Orientated to Place, Yes Orientated to Person - Impulse Control Impulse Control: Intact - Insight and Judgement Insight and Judgement: Fair - Group Participation Particating in Group Activities: Yes - Medication Management Medication Management Adherence: Yes Assessment - Assessment Merits Inpatient Hospitalization: For Immediate Safety Inpatient DSM-V Dx: F33.9 Clinical Impression: 72 year old white male during the anniversary of his wifes experiences remains with feelings of hopelessness and depression. He did not have nightmares overnight and his appetite and sleep have shown improvement. Plan - Plan Treatment Plan: Name: KRISTINE DIAZ Birthdate: 1945 [id number] # Justification for Admission: Patient is a danger to himself. # Voluntary admission. The patient continues to require inpatient admission at this time to assure safety, receive treatment and work toward stabilization. #Continue Gabapentin to 300mg BID for pain #Increase Effexor to 225mg PO daily for depression #Continue remeron 30mg qhs for sleep . # Increase Prazosin 2mg qhs for nightmares #Continue Hydroxyzine PRN for anxiety #Continue zofran 4mg Q12H PRN for nausea #Continue loperamide 2mg PO PRN Q12H for loose stool #Continue Nicotine replacement treatment for nicotine use disorder. Q30 minute observation. Management of medical issues by hospitalist consult team . Goals to include to decrease depressive symptoms. Follow up with [facility] at [facility]. Discharge social resources include activities with [email or web address] and office of the aging. Continued Medication Management: Continue Outpt Medication Medications: Current Medications Acetaminophen (Tylenol Tab*) 650 mg PO Q4H PRN PRN Reason: for pain; or Temp >101 F Al Hydrox/Mg Hydrox/Simethicone (Maalox Plus*) 30 ml PO Q4H PRN PRN Reason: INDIGESTION Last Admin: 06/05/18 09:45 Dose: 30 ml Amlodipine Besylate (Norvasc Tab*) 5 mg PO DAILY [facility] Last Admin: 06/07/18 08:52 Dose: 5 mg Aspirin (Aspirin Ec Tab*) 81 mg PO DAILY [facility] Last Admin: 06/07/18 08:51 Dose: 81 mg Enalapril Maleate (Vasotec Tab*) 40 mg PO DAILY [facility] Last Admin: 06/07/18 08:52 Dose: 40 mg Gabapentin (Neurontin Cap(*)) 300 mg PO BID [facility] Last Admin: 06/07/18 08:51 Dose: 300 mg Hydroxyzine HCl (Atarax Tab*) 50 mg PO Q6H PRN PRN Reason: ANXIETY Last Admin: 06/05/18 20:01 Dose: 50 mg Levothyroxine Sodium (Synthroid Tab*) 100 mcg PO 0600 [facility] Last Admin: 06/07/18 06:35 Dose: 100 mcg Liothyronine Sodium (Cytomel Tab*) 25 mcg PO DAILY [facility] Last Admin: 06/07/18 08:52 Dose: 25 mcg Loperamide HCl (Imodium Cap*) 2 mg PO BID PRN PRN Reason: DIARRHEA Mirtazapine (Remeron Tab*) 30 mg PO BEDTIME [facility] Last Admin: 06/06/18 23:30 Dose: 30 mg Nicotine (Nicotine Inhaler*) 10 mg INH Q2H PRN PRN Reason: CRAVING Last Admin: 06/07/18 12:22 Dose: 10 mg Nicotine Polacrilex (Nicotine Gum*) 2 mg PO Q2H PRN PRN Reason: CRAVING Ondansetron HCl (Zofran Tab*) 4 mg PO Q12H PRN PRN Reason: NAUSEA Last Admin: 06/03/18 06:39 Dose: 4 mg Pantoprazole Sodium (Protonix Tab*) 40 mg PO DAILY [facility] Last Admin: 06/07/18 08:52 Dose: 40 mg Pharmacy Profile Note (Lidocaine Patch Remove*) 1 note N/A 2100 [facility] Last Admin: 06/06/18 22:46 Dose: Not Given Prazosin HCl (Minipress Cap*) 2 mg PO QPM [facility] Venlafaxine HCl (Effexor Xr Cap*) 225 mg PO DAILY [facility] Last Admin: 06/07/18 09:58 Dose: Not Given - Discharge Plan Discharge Plan: Inpatient Hospitalization [facility]
[2018-06-07] MEDS: Prazosin CAP* 1 MG PO SCH (17:39)
[2018-06-07] MEDS: Mirtazapine TAB* 15 MG PO SCH (21:40)
[2018-06-07] MEDS: Lidocaine Patch REMOVE* 1 NOTE MISC SCH (21:41)
[2018-06-07] MEDS: hydrOXYzine HCL TAB* 50 MG PO PRN (23:50)
[2018-06-08] MEDS: Levothyroxine TAB* 100 MCG TAB PO SCH (07:10)
[2018-06-08] MEDS: Nicotine Inhaler* 10 MG AMP INH PRN ×2 (08:54→16:01)
[2018-06-08] MEDS: amLODIPine TAB* 5 MG PO SCH (08:56)
[2018-06-08] MEDS: Enalapril TAB* 20 MG PO SCH (08:56)
[2018-06-08] MEDS: Pantoprazole TAB * 40 MG TAB PO SCH (08:56)
[2018-06-08] MEDS: Gabapentin CAP(*) 300 MG PO SCH ×2 (08:56→20:10)
[2018-06-08] MEDS: Venlafaxine EXT RELEASE CAP* 75 MG PO SCH (08:56)
[2018-06-08] MEDS: Aspirin EC TAB* 81 MG TAB.EC PO SCH (08:56)
[2018-06-08] MEDS: Liothyronine TAB* 25 MCG PO SCH (08:57)
--- NOTE | 2018-06-08 12:51 | PN ---
Subjective - Subjective Date of Service: 06/08/18 Service Type: 15043 Hosp care 25 min moderate complexity Subjective: Nursing Report: Patient was visible on unit , no behavioral issues CC: "I was up because of my roommate Patient was seen and evaluated by sql report writer today in the common room. He reported that he did not get the best sleep because his roommate kept him up. He reported combating anxious thoughts with a better attitude. He denied nightmares. Per nursing no behavioral issues. He reported that another patient peer on the unit came up and said told him that he was their father then feel to their knees. He did not endorse suicidal ideation intent or plan. He reported that he will be ready to go . He worries how he will get home. He mentioned that he is grateful for all the [place] has [place] [facility] [place] He denied homicidal ideation intent or plan. He denied auditory and or visual hallucinations. He felt safe on the unit. He reported improved appetite and sleep. He looks forward to seeing Martha his therapist when he is discharged tomorrow. Objective - Appearance Appearance: Obese Dysmorphic Features: No Hygiene: Normal Grooming: Fairly Well Kept - Behavior Psychomotor Activities: Normal - Attitude and Relatedness Attitude and Relatedness: Cooperative Eye Contact: Fair - Speech Quality: Unpressured Latencies: Normal Quantity: Appropriate - Mood Patient's Decription of Mood: "Fine" - Affect Observed Affect: Non-labile Affect Consistent with: Euthymia - Thought Process Patient's Thought Process: Goal Directed Thought Content: No Passive Wish, No Suicidal Planning, No Homicidal Ideation, No Paranoid Ideation - Sensorium Experiencing Hallucinations: No, Sensorium is Clear Type of Hallucinations: Visual: No, Auditory: No, Command: No - Level of Consciousness Level of Consciousness: Alert Orientation: Yes Intact, Yes Orientated to Time, Yes Orientated to Place, Yes Orientated to Person - Impulse Control Impulse Control: Intact - Insight and Judgement Insight and Judgement: Fair - Group Participation Particating in Group Activities: No - Medication Management Medication Management Adherence: Yes Assessment - Assessment Inpatient DSM-V Dx: F33.9 Clinical Impression: 72 year old white male during the anniversary of his wifes experiences remains with feelings of hopelessness and depression. He did not have nightmares overnight and his appetite and sleep have shown improvement since admission. Plan - Plan Treatment Plan: Name: KRISTINE Mallorydate: 1945 [id number] # Justification for Admission: Patient is a danger to himself. # Voluntary admission. The patient continues to require inpatient admission at this time to assure safety, receive treatment and work toward stabilization. #Continue Gabapentin to 300mg BID for pain #Continue Effexor to 225mg PO daily for depression #Continue remeron 30mg qhs for sleep . # continue Prazosin 2mg qhs for nightmares #Continue Hydroxyzine PRN for anxiety #Continue zofran 4mg Q12H PRN for nausea #Continue loperamide 2mg PO PRN Q12H for loose stool #Continue Nicotine replacement treatment for nicotine use disorder. #Plan for discharge tomorrow - Cab voucher for home tomorrow Q30 minute observation. Management of medical issues by hospitalist consult team . Goals to include to decrease depressive symptoms. Follow up with Martha at [facility]. Discharge social resources include activities with [facility] and office of the aging. Continued Medication Management: Continue Outpt Medication Medications: Current Medications Acetaminophen (Tylenol Tab*) 650 mg PO Q4H PRN PRN Reason: for pain; or Temp >101 F Al Hydrox/Mg Hydrox/Simethicone (Maalox Plus*) 30 ml PO Q4H PRN PRN Reason: INDIGESTION Last Admin: 06/05/18 09:45 Dose: 30 ml Amlodipine Besylate (Norvasc Tab*) 5 mg PO DAILY [facility] Last Admin: 06/08/18 08:56 Dose: 5 mg Aspirin (Aspirin Ec Tab*) 81 mg PO DAILY [facility] Last Admin: 06/08/18 08:56 Dose: 81 mg Enalapril Maleate (Vasotec Tab*) 40 mg PO DAILY [facility] Last Admin: 06/08/18 08:56 Dose: 40 mg Gabapentin (Neurontin Cap(*)) 300 mg PO BID [facility] Last Admin: 06/08/18 08:56 Dose: 300 mg Hydroxyzine HCl (Atarax Tab*) 50 mg PO Q6H PRN PRN Reason: ANXIETY Last Admin: 06/07/18 23:50 Dose: 50 mg Levothyroxine Sodium (Synthroid Tab*) 100 mcg PO 0600 [facility] Last Admin: 06/08/18 07:10 Dose: 100 mcg Liothyronine Sodium (Cytomel Tab*) 25 mcg PO DAILY [facility] Last Admin: 06/08/18 08:57 Dose: 25 mcg Loperamide HCl (Imodium Cap*) 2 mg PO BID PRN PRN Reason: DIARRHEA Mirtazapine (Remeron Tab*) 30 mg PO BEDTIME [facility] Last Admin: 06/07/18 21:40 Dose: 30 mg Nicotine (Nicotine Inhaler*) 10 mg INH Q2H PRN PRN Reason: CRAVING Last Admin: 06/08/18 08:54 Dose: 10 mg Nicotine Polacrilex (Nicotine Gum*) 2 mg PO Q2H PRN PRN Reason: CRAVING Ondansetron HCl (Zofran Tab*) 4 mg PO Q12H PRN PRN Reason: NAUSEA Last Admin: 06/03/18 06:39 Dose: 4 mg Pantoprazole Sodium (Protonix Tab*) 40 mg PO DAILY [facility] Last Admin: 06/08/18 08:56 Dose: 40 mg Pharmacy Profile Note (Lidocaine Patch Remove*) 1 note N/A 2100 [facility] Last Admin: 06/07/18 21:41 Dose: Not Given Prazosin HCl (Minipress Cap*) 2 mg PO QPM [facility] Last Admin: 06/07/18 17:39 Dose: 2 mg Venlafaxine HCl (Effexor Xr Cap*) 225 mg PO DAILY [facility] Last Admin: 06/08/18 08:56 Dose: 225 mg - Discharge Plan Discharge Plan: Inpatient Hospitalization Outpatient Program: [facility]
--- NOTE | 2018-06-08 16:24 | PN ---
MHU: Group Therapy Note - Service Type Service Type: [id number] Group Psychotherapy - Medication Education Group: Patient attended group and presented with flat affect that did not vary with discussion. Although responsive to direct prompts to respond to questions, patient did not engage in spontaneous conversation.
[2018-06-08] MEDS: Prazosin CAP* 1 MG PO SCH (17:43)
[2018-06-08] MEDS: hydrOXYzine HCL TAB* 50 MG PO PRN (19:03)
[2018-06-08] MEDS: Lidocaine Patch REMOVE* 1 NOTE MISC SCH (20:10)
[2018-06-08] MEDS: Mirtazapine TAB* 15 MG PO SCH (20:10)
[2018-06-09] MEDS: Levothyroxine TAB* 100 MCG TAB PO SCH (06:57)
[2018-06-09] MEDS: Nicotine Inhaler* 10 MG AMP INH PRN (07:00)
[2018-06-09 08:41] VITALS: BP 133/80
[2018-06-09] MEDS: Liothyronine TAB* 25 MCG PO SCH (08:49)
[2018-06-09] MEDS: Pantoprazole TAB * 40 MG TAB PO SCH (08:49)
[2018-06-09] MEDS: amLODIPine TAB* 5 MG PO SCH (08:50)
[2018-06-09] MEDS: Enalapril TAB* 20 MG PO SCH (08:50)
[2018-06-09] MEDS: Venlafaxine EXT RELEASE CAP* 75 MG PO SCH (08:50)
[2018-06-09] MEDS: Gabapentin CAP(*) 300 MG PO SCH (08:50)
[2018-06-09] MEDS: Aspirin EC TAB* 81 MG TAB.EC PO SCH (08:50)
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
== END 2018-06-09 14:30 | disposition home or self-care (01) | DRG 885 ==
LOC: ED 09:40 → BSU 16:23
PROVIDERS: ADMIT Psychiatry & Neurology Psychiatry; ATTEND Psychiatry & Neurology Psychiatry
PROC: 4A02XM4 Measurement of Cardiac Total Activity, External Approach (ICD-10-PCS; principal; 2018-06-01)
PROC: GZHZZZZ Group Psychotherapy (ICD-10-PCS; 2018-06-07)
DX: F33.2 Major depressive disorder, recurrent severe without psychotic features (principal); R45.851 Suicidal ideations; F11.90 Opioid use, unspecified, uncomplicated; I10 Essential (primary) hypertension; J43.9 Emphysema, unspecified; F41.9 Anxiety disorder, unspecified; F17.210 Nicotine dependence, cigarettes, uncomplicated; G89.29 Other chronic pain; E03.9 Hypothyroidism, unspecified; R73.03 Prediabetes; R11.0 Nausea; R10.13 Epigastric pain; R07.89 Other chest pain; F43.10 Post-traumatic stress disorder, unspecified; I44.4 Left anterior fascicular block; M54.9 Dorsalgia, unspecified; E78.5 Hyperlipidemia, unspecified; I49.1 Atrial premature depolarization; Z82.49 Family history of ischemic heart disease and other diseases of the circulatory system; Z90.49 Acquired absence of other specified parts of digestive tract; Z91.048 Other nonmedicinal substance allergy status; Z91.5 Personal history of self-harm; Z79.82 Long term (current) use of aspirin
CPT/HCPCS: 36415; 71046; 71275; 78452; 80053; 80061; 80307; 80320; 80329; 81003; 81015; 83036; 84443; 84484; 85025; 86703; 87086; 90853; 93005; 93017; 99222; 99231; 99232; 99233; 99284; A9270-GY; A9502; G0480; J0280; J2785; J7512; Q9967

== ENCOUNTER 2020-07-19 17:38 | Inpatient (IN) ==
[2020-07-19 18:43] LABS: ABS Lymphocytes 1.1 10^3/ul (1.0-4.8); ABS Monocytes 0.8 10^3/ul (0-0.8); ABS Neutrophils 6.5 10^3/ul (1.5-7.7); Hematocrit 44 % (42-52); Hemoglobin 14.5 g/dL (14.0-18.0); Lymphocyte % 13.6 %; Mean Corpuscular HGB Conc 33 g/dL (31-36); Mean Corpuscular Hemoglobin 29 pg (27-31); Mean Corpuscular Volume 88 fL (80-94); Mean Platelet Volume 9.1 fL (7.4-10.4); Nucleated Red Blood Cells % 0.1; Platelet Count 149 10^3/uL (150-450); Red Blood Count 4.95 10^6 /uL (4.18-5.48); Red Cell Distribution Width 14 % (10-15); White Blood Count 8.4 10^3/uL (3.5-10.8)
[2020-07-19 19:14] LABS: ALT 21 U/L (7-52); AST 26 U/L (13-39); Albumin 4.3 g/dL (3.2-5.2); Albumin/Globulin Ratio 1.2 (1-3); Alkaline Phosphatase 54 U/L (34-104); Anion Gap 11 mmol/L (2-11); BUN/Creatinine Ratio 11.3 (8-20); Blood Urea Nitrogen 15 mg/dL (6-24); CO2 Carbon Dioxide 24 mmol/L (22-32); Chloride 101 mmol/L (101-111); Creatine Kinase 311 U/L (10-223); EGFR African American 63.1 (>60); EGFR Non-African American 52.1 (>60); Globulin 3.5 g/dL (2-4); Glucose 136 mg/dL (70-100); Potassium 4.1 mmol/L (3.5-5.0); Sodium 136 mmol/L (135-145); Total Protein 7.8 g/dL (6.4-8.9)
[2020-07-19] MEDS ORDERED: methylPREDNISolone 125 mg 2 ML VIAL IV ONE (19:47)
[2020-07-19] MEDS ORDERED: Albuterol/Ipratropium NEB.SOL (2.5/0.5 MG) 3 ML NEB.SOLN INH ONE (19:48)
[2020-07-19 19:55] LABS: Alcohol, S < 10 mg/dL (<10)
[2020-07-19] MEDS ORDERED: Albuterol HFA INHALER 8 gm MDI INH ONE (19:55)
[2020-07-19] MEDS ORDERED: Azithromycin 500 mg/250 ml NS 500 MG/250 ML BAG IVPB ONE (19:56)
[2020-07-19] MEDS ORDERED: Ipratropium HFA INHALER(NF) (ALTERNATIVE = NEBS) INH ONE (19:56)
[2020-07-19] MEDS ORDERED: cefTRIAXone 1 gm/50 mL NS BAG 1 GM/50 ML BAG IV ONE (19:56)
[2020-07-20] MEDS ORDERED: Magnesium Hydroxide LIQ 30 ML UDC PO PRN (02:31)
[2020-07-20] MEDS ORDERED: Lactated Ringers 1000 ml BAG 1,000 ML IV SCH (03:00)
[2020-07-20 03:51] LABS: C Reactive Protein 12.57 mg/L (<8.01)
[2020-07-20 04:07] LABS: TSH Ultra Thyroid Stim Horm 4.99 mcIU/mL (0.34-5.60)
[2020-07-20 04:18] LABS: Folate 12.76 ng/mL (>3.99)
[2020-07-20 04:19] LABS: Vitamin B12 156 pg/mL (180-914)
[2020-07-20] MEDS: Heparin 5000 UNITS/ML 1 mL VIAL SUBCUT SCH ×2 (04:53→13:49)
[2020-07-20] MEDS ORDERED: Albuterol HFA INHALER 8 gm MDI INH PRN (06:11)
[2020-07-20] MEDS: Albuterol/Ipratropium NEB.SOL (2.5/0.5 MG) 3 ML NEB.SOLN INH SCH ×3 (07:29→20:04)
[2020-07-20] MEDS: Polyethylene Glycol 3350 17 GM PACKET PO SCH ×2 (08:20→20:39)
[2020-07-20] MEDS: Mometasone/Formoter 200/5 MDI INH SCH ×2 (08:23→20:04)
[2020-07-20] MEDS: Aspirin EC 81 mg TAB.EC (enteric coated) PO SCH (08:24)
[2020-07-20] MEDS: Venlafaxine XR 75 mg PO SCH (08:24)
[2020-07-20] MEDS ORDERED: Lidocaine PATCH 5% PATCH TRANSDERM SCH (10:00)
[2020-07-20 11:32] LABS: Urine Benzodiazepine Screen None Detected (None Detect); Urine Cannabinoids Screen None Detected (None Detect); Urine Opiates Screen None Detected (None Detect)
[2020-07-20] MEDS ORDERED: Cyanocobalamin INJ 1,000 MCG/ML VIAL 1 ML VIAL IM ONE (14:00)
[2020-07-20 19:01] LABS: Influenza A Molecular Negative (Negative); Influenza B Molecular Negative (Negative)
[2020-07-20] MEDS ORDERED: cefTRIAXone 1 gm/50 mL NS BAG 1 GM/50 ML BAG IVPB SCH (20:30)
[2020-07-20] MEDS: Clotrimazole 1% CREAM 45 GM TOPICAL SCH (20:37)
[2020-07-20] MEDS: Enoxaparin 40 MG/0.4 ML SYR SUBCUT SCH (20:37)
[2020-07-20] MEDS ORDERED: Azithromycin 500 mg/250 ml NS 500 MG/250 ML BAG IVPB SCH (21:00)
[2020-07-20] MEDS: Lidocaine Patch REMOVE PATCH PATCH OFF SCH (23:06)
[2020-07-20] MEDS: Lidocaine PATCH 5% PATCH TRANSDERM SCH (23:40)
[2020-07-21] MEDS: Albuterol/Ipratropium NEB.SOL (2.5/0.5 MG) 3 ML NEB.SOLN INH SCH ×4 (00:56→19:36)
[2020-07-21 06:54] LABS: ABS Lymphocytes 0.6 10^3/ul (1.0-4.8); ABS Monocytes 0.3 10^3/ul (0-0.8); ABS Neutrophils 4.5 10^3/ul (1.5-7.7); Hematocrit 39 % (42-52); Hemoglobin 13.1 g/dL (14.0-18.0); Lymphocyte % 11.6 %; Mean Corpuscular HGB Conc 33 g/dL (31-36); Mean Corpuscular Hemoglobin 29 pg (27-31); Mean Corpuscular Volume 88 fL (80-94); Nucleated Red Blood Cells % 0.1; Platelet Count 127 10^3/uL (150-450); Red Blood Count 4.47 10^6 /uL (4.18-5.48); Red Cell Distribution Width 14 % (10-15); White Blood Count 5.4 10^3/uL (3.5-10.8)
[2020-07-21 07:12] LABS: BUN/Creatinine Ratio 14.2 (8-20); Calcium 10.4 mg/dL (8.6-10.3); EGFR African American 66.5 (>60); Potassium 4.1 mmol/L (3.5-5.0)
[2020-07-21] MEDS: Mometasone/Formoter 200/5 MDI INH SCH ×2 (07:53→19:36)
[2020-07-21] MEDS: Lidocaine PATCH 5% PATCH TRANSDERM SCH (09:10)
[2020-07-21] MEDS: Polyethylene Glycol 3350 17 GM PACKET PO SCH ×2 (09:11→20:31)
[2020-07-21] MEDS: Venlafaxine XR 75 mg PO SCH (09:11)
[2020-07-21] MEDS: Aspirin EC 81 mg TAB.EC (enteric coated) PO SCH (09:12)
[2020-07-21] MEDS: Clotrimazole 1% CREAM 45 GM TOPICAL SCH ×2 (09:13→20:29)
[2020-07-21] MEDS ORDERED: Iodixanol (CONTRAST) 320 MG/ML 100 ML SDV IV ONE (15:24)
[2020-07-21] MEDS: Enoxaparin 40 MG/0.4 ML SYR SUBCUT SCH (20:29)
[2020-07-21] MEDS: Lidocaine Patch REMOVE PATCH PATCH OFF SCH (20:30)
[2020-07-21] MEDS: oxyCODONE/Acetamin 5/325 mg TAB PO PRN (20:53)
[2020-07-21] MEDS ORDERED: Lidocaine Patch REMOVE PATCH PATCH OFF SCH (21:00)
[2020-07-22] MEDS: Albuterol/Ipratropium NEB.SOL (2.5/0.5 MG) 3 ML NEB.SOLN INH SCH ×4 (01:09→19:27)
[2020-07-22] MEDS: oxyCODONE/Acetamin 5/325 mg TAB PO PRN ×5 (01:31→21:57)
[2020-07-22] MEDS: Mometasone/Formoter 200/5 MDI INH SCH ×2 (07:07→19:27)
[2020-07-22] MEDS: Polyethylene Glycol 3350 17 GM PACKET PO SCH ×2 (07:57→20:34)
[2020-07-22] MEDS: Venlafaxine XR 75 mg PO SCH (07:57)
[2020-07-22] MEDS: Aspirin EC 81 mg TAB.EC (enteric coated) PO SCH (07:57)
[2020-07-22] MEDS: Lidocaine PATCH 5% PATCH TRANSDERM SCH (07:59)
[2020-07-22] MEDS: Clotrimazole 1% CREAM 45 GM TOPICAL SCH (08:00)
[2020-07-22] MEDS ORDERED: oxyCODONE/Acetamin 10/325(NF) TAB PO PRN (09:45)
[2020-07-22] MEDS: Enoxaparin 40 MG/0.4 ML SYR SUBCUT SCH (20:33)
[2020-07-22] MEDS: Lidocaine Patch REMOVE PATCH PATCH OFF SCH (20:46)
[2020-07-23] MEDS: Albuterol/Ipratropium NEB.SOL (2.5/0.5 MG) 3 ML NEB.SOLN INH SCH ×2 (00:43→08:26)
[2020-07-23] MEDS: Clotrimazole 1% CREAM 45 GM TOPICAL SCH ×2 (01:26→08:50)
[2020-07-23] MEDS: oxyCODONE/Acetamin 5/325 mg TAB PO PRN ×3 (02:18→13:01)
[2020-07-23] MEDS: Venlafaxine XR 75 mg PO SCH (07:44)
[2020-07-23] MEDS: Lidocaine PATCH 5% PATCH TRANSDERM SCH (07:44)
[2020-07-23] MEDS: Aspirin EC 81 mg TAB.EC (enteric coated) PO SCH (07:44)
[2020-07-23] MEDS: Polyethylene Glycol 3350 17 GM PACKET PO SCH (07:45)
[2020-07-23] MEDS: Mometasone/Formoter 200/5 MDI INH SCH (08:07)
[2020-07-23] MEDS ORDERED: Albuterol/Ipratropium NEB.SOL (2.5/0.5 MG) 3 ML NEB.SOLN INH PRN (08:13)
[2020-07-23] MEDS ORDERED: Albuterol HFA INHALER 8 gm MDI INH PRN (08:14)
[2020-07-23] MEDS: Albuterol HFA INHALER 8 gm MDI INH SCH ×2 (11:52→15:45)
[2020-07-23 16:49] VITALS: BP 150/71
== END 2020-07-23 17:15 | disposition home or self-care (01) | DRG 190 ==
LOC: ED 17:38 → MED 07-20 02:11
PROVIDERS: ADMIT Internal Medicine; ATTEND Internal Medicine